=== PATIENT | male | born 1940 | race Caucasian/White ===

== ENCOUNTER 2017-03-01 15:23 | Outpatient (RCR) | payer MEDICARE, SELFPAY ==
--- NOTE | 2017-03-01 16:31 | HP.PTEVAL_ITS ---
Patient's Visit Information SEAN GILMORE is a 76 year old M referred to Physical Therapy by Out of Town Doctor CARLOS A GONZALEZ with a diagnosis of PARKINSON DISEASE AND GAIT INSTABLITY. Date of Evaluation: 03/01/17 Physical Therapist: Hubert Burger PT, - Visit Plan Frequency: 2x /Week Duration: 4 Weeks Plan: PROVIDED HEP,RECOMMENDED CANE NEED FOR COMMUNITY DISTANCE AND UNEVEN SURFACES. PATIENT DOESNT WANT FWW - Subjective Subjective: This 76 y/o male presents physical therapy with parkinsons disease and gait instablity. Patient been diagnosed with parkinsons 2014. Patient symtoms affect quality of gait ,ADL'S and self hygiine -dressing buttoning shirts. Patient has no falls. Doesent use device with walking. Denies parathesai /tingling. Pain has tremors left UE. Patient had barrium swolllwing exam at [facility] today. Patient eats soft food.Patient condition affects housework tasks.Patient seen specilaist in [facility]. SOCAIL: . VOCATION: retired - Pain Right Shoulder Pain Intensity (Out of 10): 4 Pain Intensity Range: 10 - Objective POSTURE: rounded shoulders head foward,hips/knees flexed. PALAPTION: unremarkable. NEURO: tremors left UE,denies parathesia/tingling,reflexes 2/3 L3-4,L4-5 1/3. GAIT: mild foward posture narow [place], decrease step length , decrease trunk rotation. FLEXABLITY: hams mod tight,trunk roation mod tight. MMT: quads/hams 4-/5,hip flexion 3+/5,hip abd 3+/5,ankle 4/5. DYNAMIC BALANCE : good - - Balance Scores Functional Gait Assessment Score: 13 % Disability: 56.6700 CATSIB Score (Max score 120 seconds): 105 - Goals Goal 1:: Independant with HEP Goal Time Frame: 2-4 Weeks Goal 2:: Improve flexablity LE and trunk WFL to improve gait. Goal Time Frame: 2-4 Weeks Goal 3:: Patient increase strength to 4/5 to improve gait and function Goal Time Frame: 2-4 Weeks Goal 4:: Patient ambulate with cane as needed on uneven surfaces Goal Time Frame: 2-4 Weeks - Rehabilitation Potential Physical Therapy Diagnosis: This patient has diagnosis with parkinsons since 2015 with impaired gait and balnce. and needs some assist with ADL'S Rehabilitation Potential: Good - Anticipated Interventions Patient/Client Instruction: Educate patient on: Condition, Plan of Care For the Purpose of:: To increase ROM, To improve muscle performance and motor function, To improve ability to perform ADL's, To increase tolerance to activity /condition/position, To improve performance and independence with ADL's, To improve gait and locomotor functions, To increase flexibility/ROM, To improve endurance, To improve tolerance to ADL's Therapeutic Exercise to Include: Strength training, Balance training, Postural training, Flexibilty training, Gait and locomotor training For the Purpose of:: To decrease pain, To improve muscle performance and motor function, To improve ability to perform ADL's, To increase tolerance to activity /condition/position, To improve performance and independence with ADL's, To decrease level of supervision to perform tasks, To improve ability of physical actions for home/community/work/leisure, To improve gait and locomotor functions , To increase flexibility/ROM, To improve endurance, To improve balance, To improve safety with gait, To improve ability to perform tasks related to life management Functional Training to Include: Gait training For the Purpose of:: To improve muscle performance and motor function, To increase tolerance to activity/condition/position, To improve performance and independence with ADL's, To improve ability of physical actions for home/ community/work/leisure Thank you for the opportunity to evaluate your patient. For Medicare and Medicare HMO plans, please review the plan of care and approve it. It will need to be FAXED BACK to us at [phone] for Medicare purposes. Please let me know if there are questions or concerns regarding this plan of care. Physician Signature: Date:
--- NOTE | 2017-04-24 13:59 | HP.PTDCNRP_ITS ---
HP - Discharge Summary (1) - Patient Information SEAN GILMORE was seen in my office for initial evaluation on 03/01/17. The following Plan of Care was established for this patient: Initial Frequency: 2x /Week Initial Duration: 4 Weeks - Anticipated Interventions Patient/Client Instruction: Educate patient on: Condition, Plan of Care For the Purpose of:: To increase ROM, To improve muscle performance and motor function, To improve ability to perform ADL's, To increase tolerance to activity /condition/position, To improve performance and independence with ADL's, To improve gait and locomotor functions, To increase flexibility/ROM, To improve endurance, To improve tolerance to ADL's Therapeutic Exercise to Include: Strength training, Balance training, Postural training, Flexibilty training, Gait and locomotor training For the Purpose of:: To decrease pain, To improve muscle performance and motor function, To improve ability to perform ADL's, To increase tolerance to activity /condition/position, To improve performance and independence with ADL's, To decrease level of supervision to perform tasks, To improve ability of physical actions for home/community/work/leisure, To improve gait and locomotor functions , To increase flexibility/ROM, To improve endurance, To improve balance, To improve safety with gait, To improve ability to perform tasks related to life management Functional Training to Include: Gait training For the Purpose of:: To improve muscle performance and motor function, To increase tolerance to activity/condition/position, To improve performance and independence with ADL's, To improve ability of physical actions for home/ community/work/leisure This patient was last seen in our office . Pertinent comments regarding their Physical therapy will appear below: Patient seen for intial Eval only thus is d/c. At this point I will be discontinuing this patient from physical therapy. I would be happy to see this patient again in the future if found appropriate by the physician. Thank you! Hubert Burger, PT,
== END 2017-03-01 19:00 | disposition home or self-care (01) ==
LOC: PT 15:23
DX: G20 Parkinson's disease (principal); R26.9 Unspecified abnormalities of gait and mobility; R13.10 Dysphagia, unspecified
CPT/HCPCS: 97110; 97162

== ENCOUNTER → 2017-09-18 12:44 | Outpatient (CLI) | payer MEDICARE, SELFPAY ==
--- NOTE | 2017-09-18 13:00 | SP.MBSS_ITS ---
PRIMARY / SECONDARY DIAGNOSIS: dysphagia (R13.10) REFERRING PHYSICIAN: Dr. Humhprey Parisi MD CURRENT DIET: regular textures, thin liquids DENTITION: WFL MENTAL STATUS: WNL RESPIRATORY STATUS: O2 via room air PREVIOUS MODIFIED BARIUM SWALLOW STUDY: yes 03/01/2017 MBS revealed moderate oropharyngeal dysphagia with grade III SILENT aspiration of thin liquids during sequential intake, with frequent penetration above and to the vocal folds without sufficient laryngeal vestibule pressure generated to facilitate ejection likely contributing to eventual aspiration REASON FOR REFERRAL: Patient is a 77 year old male referred for a modified barium swallow (MBS) study to objectively assess the Patients oropharyngeal swallow function under fluoroscopy secondary to the diagnosis of Parkinsons disease resulting in oropharyngeal dysphagia with grade III SILENT aspiration identified during prior assessment under fluoroscopy. 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 Patient reports decreased incidence of nasal emission during intake, though with postures that are concerning based on objective testing findings (reports he will elevate head slightly, counterproductive in regards to laryngeal vestibule production due to demonstrated posterior bolus loss with delayed pharyngeal swallow onset). Both deny any changes in gait / ambulation, with clear shuffled gait and anterior lean, no assisted device. Both report recent medication adjustments (Mirapex / Pramipexole 2.25mg). MEDICAL HISTORY: Parkinsons disease, memory loss, arthritis, prior history of leukemia STUDY FINDINGS: Patient participated in a Modified Barium Swallow (MBS) study on 09/18/2017. Dr. Garcia was the radiologist present for this evaluation. This study was recorded in the lateral view and images were sent to PACs for storage. The following consistencies were presented to this patient for analysis of oropharyngeal swallow function: thin liquids, nectar thickened liquids, pudding , and a regular textured, [place] cookie. Results of the MBS are as follows: PENETRATION / ASPIRATION SCALE (CARLOS): 1 = does not enter airway 2 = enters airway/above vocal folds/ejected 3 = enters airway/above vocal folds/not ejected 4 = enters airway/contacts vocal folds/ejected 5 = enters airway/contacts vocal folds/not ejected 6 = enters airway/below vocal folds/ejected 7 = enters airway/below vocal folds/not ejected despite effort 8 = enters airway/below vocal folds/no effort VIDEOFLOROSCOPIC SCALE SCORE (CARLOS): Grade I = aspiration of material that has penetrated into the laryngeal vestibule, intact cough reflex Grade II = aspiration < 10 % of the bolus, intact cough reflex Grade III = aspiration of < 10 % of the bolus, reduced cough reflex or aspiration of > 10 % of the bolus, intact cough reflex Grade IV = aspiration of > 10 % of the bolus, reduced cough reflex PENETRATION / ASPIRATION SCALE (SCORE) WITH VIDEOFLOROSCOPIC SCALE SCORE: Thin liquids via cup (single sip): 8 - Grade III Thin liquids via cup (3 second prep): 5 Thin liquids via cup (chin tuck): 3 [place] thickened liquids via cup (single sip): 2 [place] thickened liquids via cup (single sip): 2 [place] thickened liquids via cup (single sip): 2 [place] thickened liquids via cup (single sip): 2 Pudding via spoon: 1 Regular textured cookie: *NA [place] thickened liquids via cup (single sip chaser): 4 [place] thickened liquids via cup (single sip): 2 [place] thickened liquids via cup (single sip): 2 [place] thickened liquids via cup (single sip): 2 * denotes inability to elicit swallow, required nectar thickened liquid chaser IMPRESSION: DIAGNOSIS: moderate oropharyngeal dysphagia (R13.12) ORAL PHASE CHARACTERIZED BY: LABIAL SEAL: no labial escape TONGUE CONTROL DURING BOLUS MANIPULATION: posterior escape of less than half of bolus BOLUS PREPARATION / MASTICATION: brief, disorganized chewing/mashing with solid pieces of bolus unchewed BOLUS TRANSPORT / LINGUAL MOTION: slowed tongue motion ORAL RESIDUE: residue collection on oral structures PHARYNGEAL PHASE CHARACTERIZED BY: INITIATION OF PHARYNGEAL SWALLOW: bolus head in pyriforms at first hyoid excursion SOFT PALATE ELEVATION: trace column of contrast/air between soft palate and pharyngeal wall LARYNGEAL ELEVATION: partial superior movement of thyroid cartilage/partial approximation of arytenoids cartilage to epiglottic petiole ANTERIOR HYOID EXCURSION: partial anterior movement EPIGLOTTIC MOVEMENT: complete epiglottic inversion LARYNGEAL VESTIBULE CLOSURE AT HEIGHT OF SWALLOW: incomplete laryngeal vestibule closure with narrow column of air/contrast in laryngeal vestibule PHARYNGEAL STRIPPING WAVE: pharyngeal stripping wave present / diminished PHARYNGOESOPHAGEAL SEGMENT OPENING: partial distension and partial duration; partial obstruction of flow TONGUE BASE RETRACTION: trace column of contrast between tongue base and posterior pharyngeal wall PHARYNGEAL RESIDUE: majority of contrast within or on pharyngeal structures during regular texture trials; collection of residue within or on pharyngeal structures during more viscous texture trials ESOPHAGEAL PHASE CHARACTERIZED BY: ESOPHAGEAL BOLUS CLEARANCE IN THE UPRIGHT POSITION: complete clearance; esophageal coating EFFECTS OF TREATMENT STRATEGIES ATTEMPTED: Chin tuck posture = ineffective 3 second prep = ineffective Cough and reswallow = ineffective Liquid chaser = moderately effective Reduced bolus size = effective DIET TEXTURE RECOMMENDATIONS: Will recommend a mechanical soft textured, nectar thickened liquid diet. COMPENSATORY STRATEGIES RECOMMENDED: Reduced bolus volume, reduced rate of intake, seated upright at 90 degrees during PO intake, remain upright for 30-60 minutes post meal (GERD precaution), medications with purees. INTERPRETATION OF RESULTS: Patient presents with moderate oropharyngeal dysphagia (R13.12) secondary to the diagnosis of Parkinsons disease, with results very similar in nature to prior study. Oral phase primarily marked by mastication inefficiency with noted slow, effortful mastication with Patient unable to completely break down bolus prior to deglutition with resulting piecemeal deglutition and copious oral residue post deglutition; and suboptimal lingual control resulting in premature bolus loss contributing to pre-prandial penetration and aspiration. Pharyngeal phase marked by delayed pharyngeal swallow onset timing (moderate) resulting in suboptimal bolus location upon swallow onset contributing to pre-prandial and prandial penetration and aspiration; reduced closure of the airway during deglutition (moderate) attributed to reduced laryngeal elevation resulting in inconsistent epiglottic inversion and poor laryngeal vestibule closure / pressure contributing to prandial penetration; poor pharyngeal motility / pharyngeal dysmotility (moderate) attributed to reduced tongue based retraction and reduced posterior pharyngeal stripping wave action resulting in pharyngeal retention within the valleculae and pyriforms; and velopharyngeal insufficiency / reduced soft palate elevation without observed nasoregurgitation. Noted inconsistent / insufficient laryngeal vestibule pressure generated to expel penetrated material. Insufficient cough response to expel penetrated material / laryngotracheal aspiration with overall weak cough response noted upon cued cough. Large portion of poorly masticated shortbread cookie noted to collect within the valleculae and divert nectar thickened liquids on chaser trial resulting in transient prandial deep penetration; remainder of transient penetration during nectar thickened liquid trials very minimal and brief. Patient noted to SILENTLY aspirate with thin liquids, with clinical assessment at bedside relying on identification of classic overt signs and symptoms of aspiration unreliable. Would consider this Patient to be at higher risk for both malnutrition (due to the recommended diet texture restrictions) and pulmonary complications associated with aspiration (due to the occasional limitations in mobility, presence of SILENT aspiration, and diminished cognition secondary to the diagnosis of Parkinsons). RECOMMENDATIONS: Would strongly discourage advancement past nectar thickened liquids without completion of a repeat modified barium swallow study due to the extent of aspirate identified that was SILENT in nature. Would consider implementation of the [place] Free Water Protocol (FFWP) following Patient and family education IF the Patient has the adequate level of supervision, as advancement to thin liquids prior to discharge is unlikely, ONLY if the Patient has the adequate level of supervision at home. Patient requires intensive skilled speech- language intervention targeting continued diet texture management; training and implementation of recommended compensatory strategies; training, implementation , and Patient education regarding implementation of the FFWP; and Patient / caregiver training targeting meal preparation / thickened liquid preparation ADDITIONAL COMMENTS/RECOMMENDATIONS: Results and recommendations were discussed with the Patient immediately following MBS completion, with the Patient verbalizing understanding and agreement with all recommendations and education provided. IMAGE COUNT: 2902 G-CODES: SWALLOWING G8996 Current Status: CK SWALLOWING G8997 Goal Status: CI SWALLOWING G8998 Discharge Status: CK
--- NOTE | 2017-09-18 13:35 | RAD_ITS ---
STUDY: SWALLOWING STUDY REASON FOR EXAM: Male, 77 years old. Dysphagia. TECHNIQUE: The examination was performed with Speech Pathology in attendance. Under fluoroscopic observation, the patient ingested thin barium, thick barium, barium pudding, and barium coated cracker. FLUOROSCOPY TIME: 3:05 minutes/seconds. 2902 spot images were obtained. RADIOLOGIST INVOLVEMENT: Radiologist was present and providing direct supervision. COMPARISON: Comparison is made with prior study dated March 01, 2017. FINDINGS: The following was observed during swallowing of the various mixtures of barium: Thin Barium: Penetration and silent aspiration with ingestion of thin liquids. Thick Barium: There was no evidence of aspiration or laryngeal penetration. Barium Pudding: There was no evidence of aspiration or laryngeal penetration. Barium Coated Cracker: There was no evidence of aspiration or laryngeal penetration. RAD/Swallowing Function w/Video IMPRESSION: Penetration and silent aspiration with ingestion of thin liquids. The swallow study findings were discussed with the patient by the speech pathologist at the conclusion of the examination. Please see speech pathology report for more information and recommendations. Electronically Signed: Orlin Garcia MD at 14:45 EDT Tel [phone], Service support ,
== END ==
DX: R13.12 Dysphagia, oropharyngeal phase (principal); G20 Parkinson's disease
CPT/HCPCS: 74230; 92611; G8996; G8997; G8998

== ENCOUNTER → 2017-10-20 08:55 | Outpatient (CLI) | payer MEDICARE, SELFPAY ==
--- NOTE | 2017-10-23 15:50 | EEG ---
- Electroencephalogram Date of service 10/20/2017 History EEG is being done in this 77 yr M to rule out seizures EEG Description: This is an 18 channel EEG with 10-20 lead placement system. Bipolar montages, Referential and Circumferential montages were reviewed. Photic stimulation and Hyperventilation were performed. The posterior dominant background rhythm is 8 HZ synchronous, symmetric, reacting to eye opening and closing. Photo stimulation elicited normal driving response but no abnormal photoparoxysmal response, Hyperventilation did not elicit any abnormal photoparoxysmal response. Sleep was identified. There was no epileptiform discharges or electrographic seizures noted during this recording. EEG Interpretation This is a normal awake and asleep EEG. There is no epileptiform discharges or electrographic seizures noted during the record.
== END ==
DX: R68.89 Other general symptoms and signs (principal)

== ENCOUNTER 2017-11-23 11:00 | Outpatient (RCR) | payer MEDICARE, SELFPAY ==
--- NOTE | 2017-09-07 18:49 | HP.SP.AD_ITS ---
History - History Date of Eval: 09/07/17 Medical Diagnosis (from RX): Parkinson?s disease (G20.0); dysphagia (R13.12) Previous speech therapy: No Other Relevant Medical History/Diagnoses/Surgery: Parkinson?s disease, memory loss, arthritis, prior history of leukemia Hx Smoking: No - Pain Is pain an issue with your current prescribed condition?: No Objective Oral Motor - Labial Impairment: Mild - Lingual Impairment: Mild - Jaw Impairment: WNL - Oral Motor Comments Comments: Mild reduction in lingual volume with mild lingual festinations upon protrusion. - Respiratory Status Respiratory Status: Room Air Subjective Dysphagia - Symptoms Reported Symptoms/Problems with: Drooling, Difficulty Swallowing Liquids, Difficulty Swallowing Pills, Hx of Aspiration, Hx of Pneumonia - Current Diet Solids Current Diet: Regular - Current Diet Liquids Current Liquids: Thin Other: Recommended mechanical soft, nectar thickened liquids [place] free water Protocol: No Objective Dysphagia - Administered by Administered by: Self - Thin Liquids Administred via: Cup Laryngeal Elevation: WFL Oral Holding: No Comments: Consistent audible swallow, audible moist smacking sound suspected to be attributed to suboptimal velopharyngeal elevation. Occasional lingual pumping upon digital palpation. - [place] Thickened Liquids Symptoms: Throat Clearing, Immediate Comments: Immediate throat clearing on 1 of several nectar thickened liquid trials. Consistent audible swallow, audible moist smacking sound suspected to be attributed to suboptimal velopharyngeal elevation. Occasional lingual pumping upon digital palpation. - Pureed Laryngeal Elevation: WFL - Regular Laryngeal Elevation: WFL Comments: Mild increase in mastication duration, though lacking clinical significance. - Results Swallowing Within Normal Limits: No Swallowing Diagnosis: Oropharyngeal Phase Dysphagia Additional: Known history of SILENT aspiration Severity: Moderate Modified Barium Results Hx MBS Report Entered: Yes Dysphagia Assessment - Recommendations Modified Barium Swallow/Cookie Swallow Recommended: Yes Swallowing Treatment: Yes - Diet Texture Recommendations Solids Other: Mechanical Soft Liquids: [place] Thick Other: Will consider [place] Free Water Protocol following MBS completion. - Safety Other: 3 second prep, reduced bolus volume, reduced rate of intake, avoid straws , seated upright at 90 degrees during PO intake, remain upright for 30-60 minutes post meal (GERD precaution), medications with applesauce, Subjective Dysarthria/Motor - Subjective Subjective: Patient is a 77 year old male referred to [facility] due to continued concerns with PO intake safety secondary to the diagnosis of Parkinson?s disease. MBS completed late last year (03/01/2017) revealed moderate oropharyngeal dysphagia with grade III SILENT aspiration of thin liquids during sequential intake, with frequent penetration above and to the vocal folds without sufficient laryngeal vestibule pressure generated to facilitate ejection likely contributing to eventual aspiration. Patient was recommended a mechanical soft, nectar thickened liquids diet with continued intervention at the outpatient level, though per report was unable to schedule sessions, with the Patient and Patients reporting non-compliance due to distaste / dissatisfaction during thickened liquid intake. 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 Patient reports decreased incidence of nasal emission during intake, though with postures that are concerning based on objective testing findings (reports he will elevate head slightly, counterproductive in regards to laryngeal vestibule production due to demonstrated posterior bolus loss with delayed pharyngeal swallow onset). Both deny any changes in gait / ambulation, with clear shuffled gait and anterior lean, no assisted device. Both report recent medication adjustments (Mirapex / Pramipexole 2.25mg). Plan - Plan Plan: Will recommend a repeat modified barium swallow study due in part to the rather long duration in regards to prior objective testing completion and initiation of intervention, along with recent reports of symptoms concerning for aspiration and particularly silent aspiration (strong association with diurnal sialorrhea, further reports somewhat progressed hypokinetic dysarthria / hypophonia), with clinical assessment based on more subjective impressions considered insufficient when considering prior silent aspiration identified through objective assessment. Orders included detail assessment and intervention targeting dysphagia, though both the Patient and the Patient?s express desire for skilled speech-language intervention targeting hypokinetic dysarthria, with clear expressive impairments observed; will progress with expressive language intervention after orders have been obtained, though will hold intervention efforts until intervention targeting dysphagia have been established, as severity of deficits necessitates full therapeutic focus. - Recommendations MBS: Yes Treatment Warranted: Yes - Frequency Frequency: 1x/Week Duration: 6 Months - Prognosis Prognosis: Good - Goals that are Established: Determination:: Goals will be added/modified as deemed necessary and appropriate. Therapy will be discontinued when results of re-evaluation indicate therapy is no longer needed or lack of progress has been documented. - Goal #1-5 Goal #1: Pt will tolerate the least restrictive means of nutrition to facilitate adequate hydration/nutrition with optimum safety and efficiency of swallowing function during P.O. intake without overt signs and symptoms of aspiration. Goal #2: Pt will demonstrate and utilize recommended compensatory swallowing techniques to facilitate improved airway protection and decreased risk for aspiration during PO intake, across 2 out of 3 sessions. Goal #3: Pt will participate in a Modified Barium Swallow (MBS) study to objectively assess the Pt.?s oropharyngeal swallowing function, to determine the least restrictive means of nutrition, and to identify appropriate intervention approaches / strategies to implement during treatment sessions at the supervised level. Education - Patient Instruction Patient Education: Diagnosis, Treatment Plan, Goals, Safety Precautions, Diet Level Person Taught: Patient, Family Teaching Method: Discussion, Demonstration, Audiovisual, Protocol, Teach back Response to teaching: Return demonstration, Verbalize understanding, Reinforcement needed
--- NOTE | 2017-09-29 08:45 | HP.SP.AD_ITS ---
History - History Date of Eval: 09/28/17 Medical Diagnosis (from RX): Parkinson?s disease (G20.0) Previous speech therapy: Yes Results: Recent intervention targeting oropharyngeal dysphagia with evolving effectiveness. No speech-language intervention targeting dysarthria. Other Relevant Medical History/Diagnoses/Surgery: Parkinson?s disease, memory loss, arthritis, prior history of leukemia Medications related to this diagnosis: Mirapex / Pramipexole 2.25mg Hx Smoking: No - Pain Is pain an issue with your current prescribed condition?: No Objective Oral Motor - Labial Impairment: Mild - Lingual Impairment: Mild - Jaw Impairment: WNL - Oral Motor Comments Comments: Mild reduction in lingual volume with mild lingual festinations upon protrusion. - Respiratory Status Respiratory Status: Room Air Subjective Dysphagia - Symptoms Reported Symptoms/Problems with: Drooling, Difficulty Swallowing Liquids, Difficulty Swallowing Pills, Hx of Aspiration, Hx of Pneumonia - Current Diet Solids Current Diet: Regular - Current Diet Liquids Current Liquids: Thin Other: Recommended mechanical soft, nectar thickened liquids Palomares free water Protocol: No Objective Dysphagia - Administered by Administered by: Self - Thin Liquids Administred via: Cup Laryngeal Elevation: WFL Oral Holding: No Comments: Consistent audible swallow, audible moist smacking sound suspected to be attributed to suboptimal velopharyngeal elevation. Occasional lingual pumping upon digital palpation. - [employer] Thickened Liquids Symptoms: Throat Clearing, Immediate Comments: Immediate throat clearing on 1 of several nectar thickened liquid trials. Consistent audible swallow, audible moist smacking sound suspected to be attributed to suboptimal velopharyngeal elevation. Occasional lingual pumping upon digital palpation. - Pureed Laryngeal Elevation: WFL - Regular Laryngeal Elevation: WFL Comments: Mild increase in mastication duration, though lacking clinical significance. - Results Swallowing Within Normal Limits: No Swallowing Diagnosis: Oropharyngeal Phase Dysphagia Additional: Known history of SILENT aspiration Severity: Moderate Modified Barium Results Hx MBS Report Entered: Yes Dysphagia Assessment - Recommendations Modified Barium Swallow/Cookie Swallow Recommended: Yes Swallowing Treatment: Yes - Diet Texture Recommendations Solids Other: Mechanical Soft Liquids: [employer] Thick Other: Will consider [place] Free Water Protocol following MBS completion. - Safety Other: 3 second prep, reduced bolus volume, reduced rate of intake, avoid straws , seated upright at 90 degrees during PO intake, remain upright for 30-60 minutes post meal (GERD precaution), medications with applesauce, Subjective Dysarthria/Motor - Subjective Subjective: Patient is a 77 year old male referred to [facility] due to continued concerns with PO intake safety secondary to the diagnosis of Parkinson?s disease. MBS completed late last year (03/01/2017) revealed moderate oropharyngeal dysphagia with grade III SILENT aspiration of thin liquids during sequential intake, with frequent penetration above and to the vocal folds without sufficient laryngeal vestibule pressure generated to facilitate ejection likely contributing to eventual aspiration. Patient was recommended a mechanical soft, nectar thickened liquids diet with continued intervention at the outpatient level, though per report was unable to schedule sessions, with the Patient and Patients reporting non-compliance due to distaste / dissatisfaction during thickened liquid intake. 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 Patient reports decreased incidence of nasal emission during intake, though with postures that are concerning based on objective testing findings (reports he will elevate head slightly, counterproductive in regards to laryngeal vestibule production due to demonstrated posterior bolus loss with delayed pharyngeal swallow onset). Both deny any changes in gait / ambulation, with clear shuffled gait and anterior lean, no assisted device. Both report recent medication adjustments (Mirapex / Pramipexole 2.25mg). Voice Handicap Index (VHI) - I VHI Administered: Yes VHI: Patient completed the Voice Handicap Index, which is a 30 item, self administered questionnaire that asks an individual to describe their voice and the effects of their voice on their life. Three subscales cover the areas of functional, emotional, and physical aspects of the voice disorders. Points from the questions can be combined to assign a total score, or they can be combined by subscale. Results for the VHI are as follows: Date: 09/29/17 - Comments Voice Handicap Index ? 10 Severity Scorin (indicating a moderate alteration in vocal abilities). -: . Objective Voice - Objective data Objective Data: Objective data: Sound pressure level (SPL acoustic correlation of vocal loudness) was measured with a sound level meter at a distance of 40 cm from the patient's mouth. Average conversational loudness is 70-80 dB and sustained phonation duration is 15 to 20 seconds for a typical adult. Sustained Phonation Intensity (dB SPL): 68.81 Sustained Phonatin duration (seconds): 8.28 Is the individual stimulable to increase vocal intensity: Yes Vocal Intensity at Paragraph Level (dB SPL): 64.0 Vocal Intensity at Conversational Level (dB SPL): 55.42 - Acoustic Analysis Acoustic Analysis: These results represent reading and conversational decibel levels that may significantly reduce speech intelligibility and communicative effectiveness. 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 Patient?s expressive communication marked by hypophonia with decreased breath support with compromised communicative effectiveness particularly with longer production attempts, further complicated by generalized articulatory imprecisions and intermittent neurogenic dysfluencies (initial syllable prolongations and repetitions). Patient requires continued skilled speech-language intervention targeting hypokinetic dysarthria via training and implementation of recommended expressive communication strategies (increased vocal intensity, reduced rate of production, over- articulation) with considerations for modified LSVT implementation as able ( only able to attend therapy 1x week, precluding full implementation) in addition to continued intervention targeting oropharyngeal dysphagia. - Recommendations MBS: Yes Treatment Warranted: Yes - Frequency Visits in this POC: 4 - Prognosis Prognosis: Excellent - Goals that are Established: Determination:: Goals will be added/modified as deemed necessary and appropriate. Therapy will be discontinued when results of re-evaluation indicate therapy is no longer needed or lack of progress has been documented. - Goal #1-5 Goal #1: Patient will utilize compensatory expressive communication strategies ( increased vocal intensity, reduced rate of production, over-articulation) to facilitate improved vocal intensity and speech intelligibility in 2 out of 3 consecutive sessions. Goal #2: Patient will increased his average vocal intensity to 70-75 dBSPL during word, sentence, phrase, and conversational speech production to facilitate improved vocal intensity and speech intelligibility in 2 out of 3 consecutive sessions. Goal #3: Pt will participate in a Modified Barium Swallow (MBS) study to objectively assess the Pt.?s oropharyngeal swallowing function, to determine the least restrictive means of nutrition, and to identify appropriate intervention approaches / strategies to implement during treatment sessions at the supervised level. Education - Patient Instruction Patient Education: Diagnosis, Treatment Plan Person Taught: Patient Teaching Method: Discussion Response to teaching: Return demonstration, Verbalize understanding
== END 2017-11-23 11:30 | disposition home or self-care (01) ==
LOC: SP 11:00
DX: G20 Parkinson's disease (principal); R13.12 Dysphagia, oropharyngeal phase; T17.908D Unspecified foreign body in respiratory tract, part unspecified causing other injury, subsequent encounter; R41.3 Other amnesia; R47.1 Dysarthria and anarthria
CPT/HCPCS: 92507; 92523; 92526; 92610

== ENCOUNTER → 2019-10-16 | Outpatient (CLI) | payer MEDICARE, SELFPAY ==
[2019-10-16 11:10] VITALS: BMI 26.6
[2019-10-16 13:13] LABS: Absolute Lymphocyte Count 0.73 X10^3/uL (0.83-4.51); Basophil# 0.04 X10^3/uL; Basophil% 0.7 % (0-1); Eosinophil# 0.31 X10^3/uL; Eosinophils% 5.6 % (0-5); Hematocrit 39.6 % (40-54); Lymphocyte # 0.73 X10^3/ul (4.0); Lymphocyte % 13.2 % (19-41); Mean Corp Hgb Conc 32.8 g/dL (32-36); Mean Corpuscular Hgb 31.3 pg (27.0-32.0); Mean Corpuscular Volume 95.2 fL (80-94); Mean Platelet Vol. 11.9 fl (6.2-12.0); Monocyte# 0.46 X10^3/uL; Monocyte% 8.3 % (0-10); NRBC Flagged by Analyzer 0 % (0-5); Neutrophil # 3.98 X10^3/uL (2.7-7.7); Platelet Count 132 K/mm3 (150-450); RBC Distribution Width CV 12.2 % (11.6-14.6); RBC Distribution Width SD 42.6 fl (35.1-43.9); Red Blood Count 4.16 M/mm3 (4.6-6.2); White Blood Count 5.5 K/mm3 (4.4-11.0)
[2019-10-16 13:29] LABS: Partial Thromboplast Time 27.6 Seconds (24.1-36.2); Prothrombin Time (Protime)PT. 12.7 SECONDS (11.7-14.9)
[2019-10-16 14:04] LABS: Anion Gap 2 (5-15); BUN 19 mg/dL (7-18); BUN/Creat Ratio 25.2 RATIO (10-20); Calcium,Total 8.8 mg/dL (8.5-10.1); Chloride 105 mmol/L (98-107); Creatinine, Serum 0.76 mg/dL (0.70-1.30); EST Glomerular Filtration Rate 106 mL/min (>60); Est Glom Filt Rate - Afr Amer 128 mL/min (>60); Glucose 88 mg/dL (74-106); Sodium Level 140 mmol/L (136-145)
== END | disposition home or self-care (01) ==
PROVIDERS: Referring Provider Specialist; Visit Provider Specialist
DX: I10 Essential (primary) hypertension (principal); R06.00 Dyspnea, unspecified; R07.9 Chest pain, unspecified
CPT/HCPCS: 36415; 80048; 85025; 85610; 85730

== ENCOUNTER → 2019-11-01 10:38 | Outpatient (CLI) | payer MEDICARE, SELFPAY ==
[2019-10-16 11:10] VITALS: BMI 26.6
--- NOTE | 2019-11-01 10:39 | ECHOCS_ITS ---
Reason For Study: CP, Palpitations Procedure This was a 2D Doppler, Color Flow transthoracic echocardiogram. The study was technically difficult. Contrast injection was performed. Exam performed in department. Left Ventricle Normal LV size. The estimated ejection fraction is 55 %. Normal diastology for age. No regional wall motion abnormalities noted. Right Ventricle Normal RV size. Normal systolic function. Atria Normal left atrium. Normal right atrium. No doppler evidence for ASD. Mitral Valve There is no mitral valve stenosis. No mitral valve insufficiency. Tricuspid Valve There is no tricuspid stenosis. No tricuspid valve insufficiency. Unable to estimate RV systolic pressure due to insufficient tricuspid regurgitant envelope. Aortic Valve Trisinus/trileaflet aortic valve. Aortic sclerosis, no stenosis. There is no aortic stenosis. No aortic valve insufficiency. Pulmonic Valve There is no pulmonic valvular stenosis. No pulmonic valve insufficiency. Great Vessels Normal aortic root. Pericardium/Pleural No pericardial effusion. Medication 22 gauge I.V. with prn adaptor inserted into left arm. Diluted definity 2ml given slow IV push to enhance endocardial definition. MMode/2D Measurements & Calculations LVIDd: 4.3 cm IVSd: 1.5 cm Ao root diam: 2.9 cm LVIDs: 3.0 cm LVPWd: 1.1 cm LA dimension: 3.3 cm RVDd: 3.3 cm FS: 30.8 % LAV(MOD-bp): 38.2 ml LA A4 area: 16.2 cm2 RA A4 area: 10.6 cm2 LAV(MOD-bp) Indexed: 20.9 ml/m2 LAV(MOD-sp2): 36.0 ml LAV(MOD-sp4): 42.3 ml Time Measurements MV dec time: 0.31 sec Doppler Measurements & Calculations MV E max gerardo: 58.1 cm/sec Lat Peak E' Gerardo: 4.8 cm/sec Med Peak E' Gerardo: 5.9 cm/sec MV A max gerardo: 94.7 cm/sec E/E' lat: 12.0 E/E' med: 9.9 MV E/A: 0.61 MV V2 max: 102.7 cm/sec MV P1/2t max gerardo: 66.9 cm/sec Ao V2 max: 142.4 cm/sec MV max P.2 mmHg MV P1/2t: 76.2 msec Ao max P.1 mmHg MV V2 mean: 54.2 cm/sec MV dec slope: 256.9 cm/sec2 MV mean P.4 mmHg MV V2 VTI: 20.9 cm MVA(P1/2t): 2.9 cm2 LV V1 max: 72.5 cm/sec PA V2 max: 66.4 cm/sec LV V1 max P.1 mmHg Interpretation Summary The estimated ejection fraction is 55 %. Normal diastology for age. The study was technically difficult. Contrast injection was performed. Ordering Physician: Elder Jean Referring Physician: Humphrey Parisi Performed By: Antoine Leung RCS
== END ==
PROVIDERS: Referring Provider Specialist; Visit Provider Specialist
DX: R06.00 Dyspnea, unspecified (principal); R07.9 Chest pain, unspecified; R00.2 Palpitations
CPT/HCPCS: 93306; Q9957; A4216; C8929

== ENCOUNTER 2019-11-15 08:59 | Day surgery (SDC) | payer MEDICARE, SELFPAY ==
[2019-10-16 11:10] VITALS: BMI 26.6
[2019-11-14 10:31] VITALS: BMI 26.6
[2019-11-15] VITALS (19 sets, daily range): BP systolic 121–148; BP diastolic 58–105; PULSE 71–105; RESP 16–18; TEMP 36.4–36.8; O2SAT 93–97; BMI 27.3; BMI 27.2
--- NOTE | 2019-11-15 09:16 | EKG12_ITS ---
Test Reason : [facility] Blood Pressure : / mmHG Vent. Rate : 091 BPM Atrial Rate : 091 BPM P-R Int : 146 ms QRS Dur : 082 ms QT Int : 376 ms P-R-T Axes : 030 009 028 degrees QTc Int : 462 ms Sinus rhythm with frequent Premature ventricular complexes Low voltage QRS (Limb Leads) Confirmed by ELLEN BOBBY, DALY ([id number]), editor house organ VANDANA BARRETT ([id number] on 11/21/2019 11:28:29 AM Referred By: Elder Jean Confirmed By:DALY HUGHES MD
--- NOTE | 2019-11-15 11:45 | EKG12_ITS ---
Test Reason : POST CATH Blood Pressure : / mmHG Vent. Rate : 088 BPM Atrial Rate : 070 BPM P-R Int : 000 ms QRS Dur : 074 ms QT Int : 348 ms P-R-T Axes : 000 001 008 degrees QTc Int : 421 ms Atrial fibrillation Nonspecific ST and T wave abnormality Abnormal ECG Confirmed by ELLEN BOBBY, DALY ([id number]), order editor STEPHEN LORA ([id number]) on 11/20/2019 1:08:03 PM Referred By: Elder Jean Confirmed By:DALY HUGHES MD
--- NOTE | 2019-11-15 12:48 | PCM.DC.CCA ---
Discharge Diet: Low fat/ Low Cholesterol Discharge Activity: Return to Normal Activity May shower in (days): 1 - No tub baths for 5 days May resume sexual activity in: 1-2 weeks Lifting Restrictions: Do not lift anything greater than 10 pounds for 3 days Call your doctor if your incision/area has: Continuous Slow Oozing, Sudden Increased Bleeding, Increased Pain/ Swelling, Increased Redness, Foul Smelling Discharge, Swelling at the incision site Call your doctor if you observe: Fever of 101 or Higher, Shortness of breath, Chest pain Remove Dressing in (days):: 1 Cleanse incision/area with: Soap & Water Allergies/Adverse Reactions: Allergies levofloxacin [From Levaquin] Allergy (Intermediate, Verified 10/16/19 11:13) Rash Penicillins Allergy (Intermediate, Verified 10/16/19 11:13) rash Medications to take at Discharge fexofenadine 180 mg tablet 180 mg PO DAILY 10/14/19 multivitamin 1 tab PO DAILY 10/14/19 amantadine HCl 100 mg capsule 200 mg PO DAILY cap 10/16/19 citalopram 20 mg tablet 20 mg PO DAILY tab 10/16/19 folic acid 800 mcg tablet 1.6 mg PO DAILY tab 10/16/19 polyethylene glycol 3350 17 gram/dose oral powder 17 g PO DAILY PRN 10/16/19 pramipexole 2.25 mg tablet,extended release 24 hr 2.25 mg PO DAILY tab 10/16/19 aspirin 81 mg tablet,delayed release 81 mg PO DAILY #30 tab 11/15/19 atorvastatin 40 mg tablet 40 mg PO DAILY #30 tab 11/15/19 metoprolol tartrate 25 mg tablet 25 mg PO BID #60 tab 11/15/19 ticagrelor 90 mg tablet 90 mg PO BID #60 tab 11/15/19 Primary Care Physician: Humphrey Parisi MD [Primary Care Provider] - Test Results: Test results from this visit will be discussed in further detail at your follow-up appointment, if applicable. Please Follow Up With: Dr. Jean - You will be contaced regarding follow-up When: You will be contacted by [facility] regarding staged procedure Proposed Discharge Date: 11/16/19 Cardiac Rehabilitation Info Cardiac Rehabilitation Program Information: Cardiac Rehabilitation is important for patients like you who are recovering from a heart problem. Cardiac rehabilitation programs are recognized as integral to the continued care of the patient with coronary heart disease. The cardiac rehabilitation program is designed to optimize a patient's physical, psychological, and social functioning. Health day care worker work in cardiac rehabilitation programs and assist you with getting the treatments you need to get stronger and healthier - like exercise, healthy eating habits, and medications. Cardiac rehabilitation has been show to help people with heart problems live longer and have better life enjoyment than people who do not go to cardiac rehabilitation. Please contact the Cardiac Rehabilitation Program at [facility] at in two weeks if you have not heard from them.
[2019-11-15] MEDS: 0.9% Normal Saline 1,000 ML 80 ML IV (13:10)
--- NOTE | 2019-11-15 14:06 | CRPHASE1 ---
Patient Communication PHII Cardiac Rehab Discussed with Patient:: Yes Guide to Cardiac Rehab Given to Patient:: Yes Cardiac Rehab Facility Choice List Given to Patient:: Yes Choice Program Other:: Communication Given to CR Microbiology Laboratory Manager:: Elder Jean Phase II Cardiac Rehab:: Yes Sessions:: 36 sessions - 3 days/wk, 12 weeks Risk Factors/Lifestyle Smoking Status: Never smoker Second-Hand Smoke:: No Hx Hypertension: Yes Hx Diabetes Mellitus Type 1: No Hx Diabetes Mellitus Type 2: No Hx Metabolic Disorders: No Hx Dyslipidemia: Yes Hx Obesity: No Post-Menopausal: No Stress: Long-standing ETOH: No Caffeine: Yes Substance Abuse: No Risk Factor for Sedentary Lifestyle: Moderate Risk Family History: Family History (Last Updated 10/17/19 @ 10:37 by Chandrika Adame) Mother Cancer Brother Cancer Sister Diabetes Heart disease Sister Diabetes Sister Diabetes Cardiac Rehabilitation Info Cardiac Rehabilitation Program Information: Cardiac Rehabilitation is important for patients like you who are recovering from a heart problem. Cardiac rehabilitation programs are recognized as integral to the continued care of the patient with coronary heart disease. The cardiac rehabilitation program is designed to optimize a patient's physical, psychological, and social functioning. Health healthcare sales representative work in cardiac rehabilitation programs and assist you with getting the treatments you need to get stronger and healthier - like exercise, healthy eating habits, and medications. Cardiac rehabilitation has been show to help people with heart problems live longer and have better life enjoyment than people who do not go to cardiac rehabilitation. Please contact the Cardiac Rehabilitation Program at [facility] at in two weeks if you have not heard from them.
--- NOTE | 2019-11-15 14:09 | CRPH1.INSTRU ---
General Education CAD and cardiac anatomy and function:: Patient communicates acknowledgment Explanation of diagnoses and procedures:: Patient communicates acknowledgment Sign/Symptoms of OR:: Patient communicates acknowledgment Antiplatelet therapy: Patient communicates acknowledgment Proper use of NTG-SL: Patient communicates acknowledgment Emergency procedures and activation of EMS: Patient communicates acknowledgment Compliance of all prescribed medications: Patient communicates acknowledgment Dyslipidemia Recommendations Include:: Lipid profile not available Dyslipidemia Response Code:: Patient communicates acknowledgment Overweight/Obesity Patient Overweight/Obesity Risk Factors Are:: BMI Normal [24-29 & > 65 years old] Recommendations Include:: Weight loss of 5-10%, Reduced calorie diet, Exercise 5-7 times/week Overweight/Obesity:: Patient communicates acknowledgment Hypertension Patient Hypertension Risk Factors Are:: No documented hx of HTN Recommendations Include:: Maintain BP <130/85, DASH dietary guidelines, Decrease/maintain normal body weight, Moderation of ETOH Hypertension:: Patient communicates acknowledgment Sedentary Patient Sedentary Risk Factors Are:: Lack of regular exercise Recommendations Include:: Aerobic exercise 5-7 times/week for 20-30 minutes continuously, Benefits of regular exercise, Discussed home walking program, Monitored Outpatient Cardiac Rehab Sedentary Response Code:: Patient communicates acknowledgment Stress Recommendations Include:: Identification of stressors, and assessment of coping skills, Stress management techniques Stress Response Code:: Patient communicates acknowledgment
[2019-11-15] MEDS: Pramipexole Di-HCl 0.25 MG Tablet 0.75 MG PO ×2 (15:39→21:02)
[2019-11-15] MEDS: TICAGRELOR 90 MG TABLET PO (21:01)
[2019-11-15] MEDS: Atorvastatin Calcium 40 MG Tablet PO (21:01)
[2019-11-15] MEDS: Metoprolol Tartrate 25 MG Tablet PO (21:02)
[2019-11-16 03:00] VITALS: BP 138/75; PULSE 66; PULSE 72; RESP 16; TEMP 36.4; O2SAT 98
[2019-11-16 06:07] VITALS: BP 128/69; PULSE 68; RESP 16; TEMP 36.4; O2SAT 96
[2019-11-16] MEDS: Pramipexole Di-HCl 0.25 MG Tablet 0.75 MG PO (06:12)
[2019-11-16 06:24] LABS: Hematocrit 38.7 % (40-54); Hemoglobin 12.8 g/dL (13.0-16.5); Mean Corp Hgb Conc 33.1 g/dL (32-36); Mean Corpuscular Hgb 31.2 pg (27.0-32.0); Mean Corpuscular Volume 94.4 fL (80-94); Mean Platelet Vol. 11.8 fl (6.2-12.0); Platelet Count 153 K/mm3 (150-450); RBC Distribution Width CV 12.5 % (11.6-14.6); RBC Distribution Width SD 43.1 fl (35.1-43.9); White Blood Count 6.9 K/mm3 (4.4-11.0)
[2019-11-16 06:42] VITALS: PULSE 65
[2019-11-16 06:54] LABS: ALB/GLOB Ratio 1.1 RATIO (0.9-2.4); AST(SGOT) 19 U/L (15-37); Alanine Aminotransfer ALT/SGPT 16 U/L (16-61); Albumin, Serum 3.5 g/dL (3.2-5.0); Alkaline Phosphatase 79 U/L (45-117); Anion Gap 2 (5-15); BUN 16 mg/dL (7-18); BUN/Creat Ratio 24.3 RATIO (10-20); Calcium,Total 8.8 mg/dL (8.5-10.1); Chloride 106 mmol/L (98-107); Creatinine, Serum 0.66 mg/dL (0.70-1.30); EST Glomerular Filtration Rate 124 mL/min (>60); Est Glom Filt Rate - Afr Amer 150 mL/min (>60); Estimated Creatinine Clearance 54.05 ml/min; Globulin 3.3 g/dL (2.2-4.2); Glucose 95 mg/dL (74-106); Potassium 3.9 mmol/L (3.5-5.1); Protein, Total 6.8 g/dL (6.4-8.2); Sodium Level 138 mmol/L (136-145)
[2019-11-16] MEDS: Aspirin 81 MG TAB.CHEW PO (07:26)
[2019-11-16 08:58] VITALS: O2SAT 95
[2019-11-16 09:09] VITALS: BP 104/64; PULSE 70; RESP 16; TEMP 36.4; O2SAT 96
[2019-11-16] MEDS: Amantadine 100 MG Capsule 200 MG PO (09:11)
[2019-11-16 09:12] VITALS: BP 104/64; PULSE 70
[2019-11-16] MEDS: Citalopram 20 MG Tablet PO (09:12)
[2019-11-16] MEDS: TICAGRELOR 90 MG TABLET PO (09:12)
[2019-11-16] MEDS: Metoprolol Tartrate 25 MG Tablet PO (09:12)
--- NOTE | 2019-11-16 10:00 | EKG12_ITS ---
Test Reason : AM EKG Blood Pressure : / mmHG Vent. Rate : 064 BPM Atrial Rate : 064 BPM P-R Int : 154 ms QRS Dur : 078 ms QT Int : 406 ms P-R-T Axes : 050 011 098 degrees QTc Int : 418 ms Normal sinus rhythm Nonspecific ST and T wave abnormality Abnormal ECG When compared with ECG of 15-NOV-2019 12:41, MANUAL COMPARISON REQUIRED, DATA IS UNCONFIRMED Confirmed by MEDHAT IVEY ([id number]), video tape editor PERICO SYKES ([id number]) on 11/21/2019 9:13:06 AM Referred By: Elder Jean Confirmed By:MEDHAT IVEY
--- NOTE | 2019-11-16 10:54 | DCINST_ITS ---
Discharge Diet: Low fat/ Low Cholesterol Discharge Activity: Return to Normal Activity May shower in (days): 1 - No tub baths for 5 days May resume sexual activity in: 1-2 weeks Call your doctor if your incision/area has: Continuous Slow Oozing, Sudden Increased Bleeding, Increased Pain/ Swelling, Increased Redness, Foul Smelling Discharge, Swelling at the incision site Call your doctor if you observe: Fever of 101 or Higher, Shortness of breath, Chest pain Remove Dressing in (days):: 1 Cleanse incision/area with: Soap & Water Allergies/Adverse Reactions: Allergies levofloxacin [From Levaquin] Allergy (Intermediate, Verified 10/16/19 11:13) Rash Penicillins Allergy (Intermediate, Verified 10/16/19 11:13) rash Medications to take at Discharge fexofenadine 180 mg tablet 180 mg PO DAILY 10/14/19 amantadine HCl 100 mg capsule 200 mg PO DAILY cap 10/16/19 citalopram 20 mg tablet 20 mg PO DAILY tab 10/16/19 polyethylene glycol 3350 17 gram/dose oral powder 17 g PO DAILY PRN 10/16/19 pramipexole 2.25 mg tablet,extended release 24 hr 2.25 mg PO DAILY tab 10/16/19 Aspirin [Aspirin, Baby] 81 mg PO DAILY@0800 tab.chew 11/16/19 Atorvastatin Calcium [Lipitor] 40 mg PO QHS #30 tab 11/16/19 Metoprolol Tartrate [Lopressor (beta hien)] 25 mg PO BID #60 tab 11/16/19 Ticagrelor [Brilinta] 90 mg PO BID #60 tab 11/16/19 The following prescriptions were given: Ticagrelor [Brilinta] 90 mg PO BID #60 tab Transmission Status: Pending to [facility] Atorvastatin Calcium [Lipitor] 40 mg PO QHS #30 tab Transmission Status: Pending to [facility] Metoprolol Tartrate [Lopressor (beta hien)] 25 mg PO BID #60 tab Transmission Status: Pending to [facility] Primary Care Physician: Humphrey Parisi MD [Primary Care Provider] - Test Results: Test results from this visit will be discussed in further detail at your follow- up appointment, if applicable. Please Follow Up With: Dr. Jean - You will be contaced regarding follow-up When: You will be contacted by [facility] regarding staged procedure Proposed Discharge Date: 11/16/19 Cardiac Rehabilitation Info Cardiac Rehabilitation Program Information: Cardiac Rehabilitation is important for patients like you who are recovering from a heart problem. Cardiac rehabilitation programs are recognized as integral to the continued care of the patient with coronary heart disease. The cardiac rehabilitation program is designed to optimize a patient's physical, psychological, and social functioning. Health transitional care nurse work in cardiac rehabilitation programs and assist you with getting the treatments you need to get stronger and healthier - like exercise, healthy eating habits, and medications. Cardiac rehabilitation has been show to help people with heart problems live longer and have better life enjoyment than people who do not go to cardiac rehabilitation. Please contact the Cardiac Rehabilitation Program at [facility] at in two weeks if you have not heard from them.
--- NOTE | 2019-11-16 10:55 | DS.PCM_ITS ---
<Darling Esposito - Last Filed: 11/16/19 10:55> Discharge Date and Diagnosis - Secondary Discharge Diagnosis Chronic Problems: Chronic Problems (Last Updated 11/15/19 @ 12:00 by Chandrika Adame) Essential hypertension (Chronic) Hospital Course and Treatment Summary of Care Provided: The patient is a 79 year old M 79-year-old patient, has a cardiac catheterization which showed high-grade lesion involving the proximal RCA Underwent PCI and stent by This morning has no symptoms of chest pain, seen and evaluated at bedside along with the nursing staff. Cardiac exam essentially normal. Patient known to have history of Parkinson disease and was on medical therapy. Explained in detail the cardiac medication to the patient, and nursing staff New cardiac medication include low-dose aspirin 81 mg, metoprolol 25 twice daily, atorvastatin 40 mg once a day, Brilinta 90 mg twice a day. Prescription was sent to the local pharmacy. From cardiac standpoint patient is scheduled to see his primary slab inspector Dr. Jean on November 18 To discuss elective PCI of the left circumflex artery. Patient advised to follow-up with his primary care physician for continuation of his medical care. He will be discharged today ,discharge instructions were provided. [] - Physical Exam Vitals/I&O's: Vital Signs Temp Pulse Resp BP Pulse Ox 97.5 F L 70 16 104/64 96 11/16/19 09:09 11/16/19 09:12 11/16/19 09:09 11/16/19 09:12 11/16/19 09:09 Oxygen Delivery Method Room Air Weight: 168 lb 13.985 oz Body Mass Index (BMI) 27.2 Intake and Output for Last 24 Hours 11/14/19 11/15/19 11/16/19 23:59 23:59 23:59 Intake Total 840 / 840 0 / 0 Output Total 625 / 625 275 / 275 Balance 215 / 215 -275 / -275 Laboratory Results 11/16/19 05:15: WBC 6.9, RBC 4.10 L, Hgb 12.8 L, Hct 38.7 L, MCV 94.4 H, MCH 31.2, MCHC 33.1, RDW Std Deviation 43.1, RDW Coeff of Syeda 12.5, Plt Count 153, MPV 11.8 11/16/19 05:15: Sodium 138, Potassium 3.9, Chloride 106, Carbon Dioxide 30.0, Anion Gap 2 L, BUN 16, Creatinine 0.66 L, Estim Creat Clear Calc 54.05, Est GFR (MDRD) Af Amer 150, Est GFR (MDRD) Non-Af 124, BUN/Creatinine Ratio 24.3 H, Glucose 95, Calcium 8.8, Total Bilirubin 0.80, AST 19, ALT 16, Alkaline Phosphatase 79, Total Protein 6.8, Albumin 3.5, Globulin 3.3, Albumin/Globulin Ratio 1.1 Current Medications Amantadine HCl (Symmetrel) 200 mg PO DAILY [facility] Last Admin: 11/16/19 09:11 Dose: 200 mg Documented by: Aspirin (Aspirin, Baby) 81 mg PO DAILY@0800 [facility] Last Admin: 11/16/19 07:26 Dose: 81 mg Documented by: Atorvastatin Calcium (Lipitor) 40 mg PO QHS [facility] Last Admin: 11/15/19 21:01 Dose: 40 mg Documented by: Atropine Sulfate () 0.5 mg IV UD PRN PRN Reason: HR <50 bpm Citalopram Hydrobromide (Celexa) 20 mg PO DAILY [facility] Last Admin: 11/16/19 09:12 Dose: 20 mg Documented by: [facility] Admin: 11/16/19 07:23 Dose: Not Given Documented by: Heparin Sodium (Beef Lung) (Heparin 500 Unit/5 Ml (100/Ml)) 500 unit IV UD PRN PRN Reason: HEPARIN FLUSH Labetalol HCl (Trandate) 5 mg IV X1 PRN PRN Reason: SBP > 160 PRIOR TO SHEATH PULL Loratadine (Claritin) 10 mg PO DAILY [facility] Last Admin: 11/16/19 09:13 Dose: Not Given Documented by: Metoprolol Tartrate (Lopressor (Beta Morgan)) 25 mg PO BID [facility] Last Admin: 11/16/19 09:12 Dose: 25 mg Documented by: Multivitamins ([facility]ivitamin) [facility] Last Admin: 11/16/19 07:23 Dose: Not Given Documented by: Polyethylene Glycol (Miralax) 17 gm PO DAILY PRN PRN Reason: CONSTIPATION Pramipexole Dihydrochloride (Mirapex) 0.75 mg PO TID [facility] Last Admin: 11/16/19 06:12 Dose: 0.75 mg Documented by: Sodium Chloride () 500 ml IV BOLUS PRN PRN Reason: VASO-VAGAL PROTOCOL Sodium Chloride () 10 - 40 ml IV UD PRN PRN Reason: SALINE FLUSH Ticagrelor (Brilinta) 90 mg PO BID [facility] Last Admin: 11/16/19 09:12 Dose: 90 mg Documented by: Discharge Diet: Low fat/ Low Cholesterol Discharge Activity: Return to Normal Activity May shower in (days): 1 - No tub baths for 5 days May resume sexual activity in: 1-2 weeks Call your doctor if your incision/area has: Continuous Slow Oozing, Sudden Increased Bleeding, Increased Pain/ Swelling, Increased Redness, Foul Smelling Discharge, Swelling at the incision site Call your doctor if you observe: Fever of 101 or Higher, Shortness of breath, Chest pain Remove Dressing in (days):: 1 Cleanse incision/area with: Soap & Water Home Medications: Medications to take at Discharge fexofenadine 180 mg tablet 180 mg PO DAILY 10/14/19 amantadine HCl 100 mg capsule 200 mg PO DAILY cap 10/16/19 citalopram 20 mg tablet 20 mg PO DAILY tab 10/16/19 polyethylene glycol 3350 17 gram/dose oral powder 17 g PO DAILY PRN 10/16/19 pramipexole 2.25 mg tablet,extended release 24 hr 2.25 mg PO DAILY tab 10/16/19 Aspirin [Aspirin, Baby] 81 mg PO DAILY@0800 tab.chew 11/16/19 Atorvastatin Calcium [Lipitor] 40 mg PO QHS #30 tab 11/16/19 Metoprolol Tartrate [Lopressor (beta morgan)] 25 mg PO BID #60 tab 11/16/19 Ticagrelor [Brilinta] 90 mg PO BID #60 tab 11/16/19 Following Prescriptions Were Given to Patient: Ticagrelor [Brilinta] 90 mg PO BID #60 tab Transmission Status: Received by [facility] Atorvastatin Calcium [Lipitor] 40 mg PO QHS #30 tab Transmission Status: Received by [facility] Metoprolol Tartrate [Lopressor (beta morgan)] 25 mg PO BID #60 tab Transmission Status: Received by [facility] Primary Care Physician: Humphrey Parisi MD [Primary Care Provider] - Please Follow Up With: Dr. Jean - You will be contaced regarding follow-up When: You will be contacted by [facility] regarding staged procedure Medical Necessity - Tobacco Use Smoking Status: Never smoker Tobacco Use: Non-smoker <Niles Schwartz - Last Filed: 12/06/19 12:58> Discharge Date and Diagnosis - Secondary Discharge Diagnosis Chronic Problems: Chronic Problems (Last Reviewed 11/27/19 @ 15:[address] Elder Jean MD) Essential hypertension (Chronic) Hospital Course and Treatment Summary of Care Provided: The patient is a 79 year old M [] - Physical Exam Vitals/I&O's: Vital Signs Temp Pulse Resp BP Pulse Ox 97.5 F L 70 16 104/64 96 11/16/19 09:09 11/16/19 09:12 11/16/19 09:09 11/16/19 09:12 11/16/19 09:09 Oxygen Delivery Method Room Air Weight: 168 lb 13.985 oz Body Mass Index (BMI) 27.2
--- NOTE | 2019-11-16 11:02 | CASEMGMT ---
RN CM Note: Brilinta card given to patient by nursing with dc instructions. Mary Jo LOWERY RN ACM
--- NOTE | 2019-11-20 00:32 | CL.I_ITS ---
Patient Name: SEAN GILMORE Study Date: 11/15/2019 Performing: Guille Jean MD Ht: 66.14 inches 168 cm : 1940 Wt: 165.35 lbs 75 kg Age: 79 Gender: male BSA: 1.85 PROCEDURE(S) PERFORMED GC16-OXQ/COR [id number] W OR WO PTCA, SINGLE CORONARY ARTERY CLINICAL PROFILE AND CO-MORBIDITIES Indications: Worsening Angina Heart Failure: None Stress/Imaging Stress/Image Study Performed: No CAD Presentations: Unstable angina. CONCLUSIONS CAD as described. No significant . Successful PCI of RCA with JEANETTE. RECOMMENDATIONS ASA Indefinitley Brilinta for at least 12 months Pt. to return for PCI of LCx in 1 week DESCRIPTION OF PROCEDURE The patient arrived to the procedure lab. The risks and benefits of the procedure as well as a full d escription of our services here and lack of surgical backup were fully explained to the patient and/o r their significant other prior to the catheterization. The Timeout was completed, verifying the jamari ect patient and procedure. The patient's procedural site was prepped and draped in the usual fashion. Local anesthetic was given subcutaneously to right radial region with Lidocaine 2%. Using a modified Seldinger technique, arterial access was obtained via the right radial artery, a 6Fr sheath was inse rted.. Left Coronary Artery selective angiography was performed in multiple views using a 5 Fr. JL3. 5 catheter. LV to AO pullback pressures were then recorded. Right Coronary Artery selective angiograp hy was then performed in multiple views using a 5 Fr. JR 4 catheterThe images were reviewed and optio ns discussed. A decision was then made to proceed with an Intervention, IVUS or other adjunct procedure. JR 4 Guide catheter was inserted and engaged into the RCA. BMW Guide wire was advanced to the RCA . 2.5x20 Emerge Balloon catheter was inserted. Balloon catheter was advanced across lesion in the rig ht coronary, mid. PTCA balloon inflated at 12 atms for 22 secs. 3.5x 20 Emerge Balloon catheter was i nserted. Balloon catheter was advanced across lesion in the right coronary, mid. PTCA balloon inflate d at 10 atms for 19 secs. 4x38 Synergy Drug Eluting stent was inserted. Drug Eluting stent was advanc ed across the lesion in the right coronary, mid. Angiogram performed post stent deployment. Angiogram performed post stent deployment. The arterial sheath was pulled and a TR Band was applied for hemo stasis. 12cc of air applied CORONARY ANGIOGRAPHY DOMINANCE: Right Dominant LEFT HEART ASSESSMENT Left Ventricular Ejection Fraction: Not assessed LEFT MAIN: Mild luminal irregularities LEFT ANTERIOR DESCENDING ARTERY: MID LAD: 60 % Stenosis CIRCUMFLEX ARTERY: PROX CIRC: 90 % Stenosis OM 1: Proximal - 95 % Stenosis RIGHT CORONARY ARTERY: MID RCA: 95 % Stenosis VALVE FINDINGS: No Aortic Valve Stenosis INTERVENTION INFORMATION LESION SITE: RCA (Mid) Lesion Complexity: High/C, chronic total occlusion: No, lesion at bifurcation: No, lesion length: 30 mm, culprit lesion: Yes, Previously treated lesion: No Pre Stenosis: 95 % Pre intervention CRISTAL flow: 3 PROCEDURE: Drug Eluting Stent with pre dilatation. Post Stenosis: 0 % Post intervention CRISTAL flow: 3 Lesion Devices: Cardinal 6 Fr JR4 100cm Guide Catheter Francisco .014 BMW Braymer Straight 190cm Dutch Sci EMERGE MR 2.50x20 BALLOON Dutch Sci EMERGE MR 3.50x20 BALLOON Dutch Sci Synergy MR JEANETTE 4.00x38 COMPLICATIONS No Complications PROCEDURE MEDICATIONS Versed 1 mg IV Fentanyl 50 mcg IV Fentanyl 25 mcg IV Oxygen: 2 L/min via nasal cannula Aspirin (325mg) 1 Tabs PO 11/15/2019 11:21:36 Brilinta 180 mg PO @ 11/15/2019 11:22:01 Heparin given IA 11/15/2019 10:48:04 Heparin 3000 unit(s) IV 11/15/2019 11:04:09 Verapamil 2.5mg, Ntg 100mcgs, 3000 units of Heparin given IA 11/15/2019 10:48:04 SUMMARY OF HEMODYNAMIC DATA Time AIR REST ECG 09:24:18 LV 145/-7, 9 10:56:17 LV 150/-7, 10 10:56:23 LVp 144/-7, 11 10:56:30 AOp 146/71 (106) 10:56:35 Signed By Guille Jean MD On 11/18/2019 13:35:40 Guille Jean MD
== END 2019-11-16 11:22 | disposition home or self-care (01) ==
LOC: CLSP 09:02 → PCU 11-18 07:55
PROVIDERS: Referring Provider Specialist; Visit Provider Specialist
DX: I25.110 Atherosclerotic heart disease of native coronary artery with unstable angina pectoris (principal); R06.00 Dyspnea, unspecified; R07.9 Chest pain, unspecified; I10 Essential (primary) hypertension; G20 Parkinson's disease; C91.41 Hairy cell leukemia, in remission; M19.90 Unspecified osteoarthritis, unspecified site; Z79.899 Other long term (current) drug therapy
CPT/HCPCS: 36415; 80053; 85027; 92928; 93005; 93454; 99152; 99153; J7030; J7040; Q9967; C1725; C1769; C1874; C1887; C1894; C9600; J1327

== ENCOUNTER 2019-11-21 09:39 | Day surgery (SDC) | payer MEDICARE, SELFPAY ==
[2019-11-15 12:00] VITALS: BMI 27.2
[2019-11-20 08:40] VITALS: BMI 27.1
[2019-11-21] VITALS (17 sets, daily range): BP systolic 109–148; BP diastolic 59–82; PULSE 50–74; RESP 15–18; TEMP 36.4–36.6; O2SAT 94–100
--- NOTE | 2019-11-21 08:50 | PCM.HP.BLA ---
History and Physical Date of Admission: 11/21/19 History of Present Illness Details: 10/16/2019: 79-year-old gentleman with past medical history of hypertension, reactive airway disease, Parkinson's, leukemia that is under remission coming to see us because of chest pain. The chest pain is retrosternal happens every time with exertion and is relieved with rest. This is been going on for about 3 months. Over the last few days it has been getting worse. We sent him for blood work today that does not reveal significant anemia. His creatinine is normal. His platelets are slightly low at 132. at that OV it was discussed pursuing a heart cath, pt and wanted to think about it. 11/15/2019: Patient underwent heart catheterization which demonstrated left main with mild luminal irregularities, LAD 60% stenosis, proximal circumflex 90% stenosis, proximal OM1 95% stenosis, mid RCA 95% stenosis. Patient underwent stenting to his right coronary with planned staged procedure to his circumflex. 11/21/2019: Patient is here today to undergo his staged procedure for his circumflex. Allergies levofloxacin [From Levaquin] Allergy (Intermediate, Verified 10/16/19 11:13) Rash Penicillins Allergy (Intermediate, Verified 10/16/19 11:13) rash PFSH Medical History Atherosclerosis of coronary artery of [place] heart without angina pectoris (Acute) Dyspnea on exertion (Acute) Essential hypertension (Chronic) Hairy cell leukemia, in remission (Chronic) Idiopathic Parkinson's disease (Chronic) Osteoarthritis (Chronic) Reactive airways dysfunction syndrome (Chronic) Vitamin B-complex deficiency (Resolved) Surgical History History of coronary artery stent placement (Acute 11/15/19) History of arthroscopic knee surgery (Resolved) History of tonsillectomy (Resolved) Family History Mother Cancer Urinary Brother Cancer throat Sister Diabetes Heart disease Open heart surgery, unsure if due to CAD or valve Sister Diabetes Sister Diabetes Social History Smoking Status: Never smoker alcohol intake: never substance use type: does not use caffeine: Yes Type: carbonated beverages ROS Const Const: Positive for fatigue and weakness; negative for headache(s), frequent falls, difficulty sleeping or excessive sweating Eyes Eyes: Negative for loss of peripheral vision, transient loss of vision, blurry vision, double vision or tunnel vision ENT ENT: Positive for balance problems; negative for headache(s) Cardio Chest Pain: Yes Frequency: more than once a day Character: other (pressure) Onset: exercise (walking, stairs) Location: mid sternal Duration: minutes (30 minutes) Exacerbation: activity Relieving: rest Palpitations: Yes (Occurs with chest pressure) feels like its: fast, thumping Edema: Bilateral Muscle aches with walking: None Resp Respiratory: Positive for SOB with activity; negative for SOB at rest, SOB orthopnea\SOB lying down, Cough or paroxysmal nocturnal dyspnea GI GI: Negative nausea, vomiting, heartburn or black,tarry stools : Negative for hematuria Musc Musc: Positive for muscle weakness, joint pain and balance problems; negative for muscle aches/ myalgia Skin Skin: Negative non-healing lesions, rash or unusual bruising Neuro Neuro: Positive for weakness; negative for frequent falls, headache(s), blurry vision or double vision [place] Hematologic/Lymphatic: Negative for easy bleeding or easy bruising Endo Endo: Positive for fatigue; negative for excessive sweating Psych Psych: Negative for anxiety or depression Allergy Allergy/Immunology: Negative for rash Cardiology Exam Const Appearance: cooperative; negative acute distress Nutritional Appearance: well nourished Head Head: normocephalic and atraumatic Ears: hearing grossly normal bilaterally Nose: external nose normal Face and Sinus: face symmetric Mouth: moist mucous membranes Teeth and gingiva: fair dentition Eyes General: appearance normal, both eyes and all related structures Eyelids: eyelids normal Conjunctivae: conjunctivae normal Neck Neck: trachea midline and no JVD Chest Chest inspection: symmetric chest movement; negative pursed lip breathing Auscultation: Bilateral: Clear to Auscultation Cardio Rate: regular rate Rhythm: regular rhythm Heart sounds: S1 normal and S2 normal No Murmurs GI GI: normal to inspection Neuro General: alert, awake and oriented x3 Gait: Negative ataxic Skin Skin: no rashes or lesions noted; negative atrophy or jaundice Extremities Pulses: Normal: Right Posterior Tibial Pulse, Left Posterior Tibial Pulse Lower Extremity Edema: None: Bilateral Musculoskel Musculoskeletal: No joint tenderness Psych Psychological: normal affect Assessment & Plan Problems 1. Atherosclerosis of coronary artery of [place] heart without angina pectoris I25.10 2. Essential hypertension I10 Plan - NINA Willis Pt will under go a stagged PCI today, he will follow up in the office accordingly after. COVID (Procedure Consent) Procedure Criteria Procedure Criteria: Yes Elective The surgeon/proceduralist and patient have discussed in detail the risk of exposure to and/or potential harm posed by the COVID-19 virus with having a surgery/procedure at this time versus the risk of delaying the surgery/procedure. It is not possible to know either the risk of delaying the surgery or procedure or chance of getting an infection with perfect accuracy, but a joint decision was made between the patient and the surgeon/proceduralist to proceed at this time with the scheduled surgery/procedure as indicated on the consent form.
[2019-11-21] MEDS: 0.9% Normal Saline 1,000 ML 60 ML IV (12:00)
--- NOTE | 2019-11-21 12:00 | EKG12_ITS ---
Test Reason : Blood Pressure : / mmHG Vent. Rate : 052 BPM Atrial Rate : 052 BPM P-R Int : 206 ms QRS Dur : 078 ms QT Int : 416 ms P-R-T Axes : -03 002 -03 degrees QTc Int : 386 ms Sinus bradycardia Otherwise normal ECG When compared with ECG of 16-NOV-2019 05:54, Nonspecific T wave abnormality now evident in Inferior leads Confirmed by DEIRDRE BOBBY, BHUPENDRA ([id number]), associate editor STEPHEN LORA ([id number]) on 11/28/2019 11:11:18 AM Referred By: Elder Jean Confirmed By:BHUPENDRA GILMORE MD
--- NOTE | 2019-11-21 12:05 | CRPHASE1_ITS ---
Patient Communication Former Patient:: Phase I - STAGED PCI INTERVENTION, Phase II PHII Cardiac Rehab Discussed with Patient:: Yes Guide to Cardiac Rehab Given to Patient:: Yes Cardiac Rehab Facility Choice List Given to Patient:: Yes Choice Program [facility] CR PHII:: Communication Given to CR, Refer to [facility] Rivet Thrower:: Elder Jean Refer Phase II Cardiac Rehab:: Yes Sessions:: 36 sessions - 3 days/wk, 12 weeks Risk Factors/Lifestyle Family History: Family History (Last Reviewed 11/21/19 @ 09:57 by NINA Willis) Mother Cancer Brother Cancer Sister Diabetes Heart disease Sister Diabetes Sister Diabetes Cardiac Rehabilitation Info Cardiac Rehabilitation Program Information: Cardiac Rehabilitation is important for patients like you who are recovering from a heart problem. Cardiac rehabilitation programs are recognized as integral to the continued care of the patient with coronary heart disease. The cardiac rehabilitation program is designed to optimize a patient's physical, psychological, and social functioning. Health health care legal assistant work in cardiac rehabilitation programs and assist you with getting the treatments you need to get stronger and healthier - like exercise, healthy eating habits, and medications. Cardiac rehabilitation has been show to help people with heart problems live longer and have better life enjoyment than people who do not go to cardiac rehabilitation. Please contact the Cardiac Rehabilitation Program at [facility] at in two weeks if you have not heard from them.
--- NOTE | 2019-11-21 12:06 | CRPH1.INSTRU ---
General Education CAD and cardiac anatomy and function:: Patient communicates acknowledgment Explanation of diagnoses and procedures:: Patient communicates acknowledgment Sign/Symptoms of NM:: Patient communicates acknowledgment Antiplatelet therapy: Patient communicates acknowledgment Proper use of NTG-SL: Patient communicates acknowledgment Emergency procedures and activation of EMS: Patient communicates acknowledgment Compliance of all prescribed medications: Patient communicates acknowledgment - PATIENT PREVIOUSLY SEEN BY CR STAFF AND EDUCATED, STAGED PCI INTERVENTION.
--- NOTE | 2019-11-21 14:49 | CL.I_ITS ---
Patient Name: SEAN GILMORE Study Date: 11/21/2019 Performing: Guille Jean MD Ht: 66.14 inches 168 cm : 1940 Wt: 167.55 lbs 76 kg Age: 79 Gender: male BSA: 1.86 PROCEDURE(S) PERFORMED [id number] W OR WO PTCA, SINGLE CORONARY ARTERY [id number] W OR WO PTCA, EACH ADD'L ARTERY, SAME MAJOR CLINICAL PROFILE AND CO-MORBIDITIES Indications: Worsening Angina Heart Failure: None Stress/Imaging Stress/Image Study Performed: No CAD Presentations: Unstable angina. CONCLUSIONS Successful PTCA/JEANETTE pLCx and OM1 RECOMMENDATIONS ASA Indefinitley Brilinta for at least 12 months Follow up with primary supervisor sunglasses DESCRIPTION OF PROCEDURE The patient arrived to the procedure lab. The risks and benefits of the procedure as well as a full d escription of our services here and current unavailability of surgical backup were fully explained to the patient and/or their significant other prior to the catheterization. The Timeout was completed, verifying the correct patient and procedure. The patient's procedural site was prepped and draped in the usual fashion. Local anesthetic was given subcutaneously to right radial region with Lidocaine 2% . Using a modified Seldinger technique, arterial access was obtained via the right radial artery, a 6 Fr sheath was inserted.. XB3.0 Guide catheter was inserted and engaged into the LCA. BMW Howell Guide wire was advanced to the Circumflex. Emerge 3.0 x 15 Balloon catheter was inserted. Balloon catheter was advanced acro ss lesion in the first obtuse marginal, proximal. PTCA balloon inflated at 10 atms for 16 secs. PTCA balloon inflated at 6 atms for 30 secs. Balloon catheter was repositioned to additional lesion in the circumflex, proximal. PTCA balloon inflated at 10 atms for 15 secs. PTCA balloon inflated at 12 atms for 17 secs. Synergy 3.5 x 38 Drug Eluting stent was inserted. Drug Eluting stent was advanced acros s the lesion in the first obtuse marginal, proximal. Synergy 3.5 x 16 Drug Eluting stent was inserted . Drug Eluting stent was advanced across the lesion in the circumflex, proximal. Angiogram performed post stent deployment. Emerge 1.5 x 15 Balloon catheter was inserted. Balloon catheter was advanced a cross lesion in the first obtuse marginal, proximal. Angiogram performed post balloon dilatation. Synergy 3.0 x 12 Drug Eluting stent was inserted. Drug Eluting stent was advanced across the lesion in the first obtuse marginal, proximal. Angiogram performed post stent deployment. Angiogr am performed post stent deployment. The arterial sheath was pulled and a TR Band was applied for hem ostasis INTERVENTION INFORMATION LESION SITE: 1st OM (Proximal) Lesion Complexity: High/C, chronic total occlusion: No, lesion at bifurcation: Yes, thrombus present: No, lesion length: 25 mm, culprit lesion: Yes, Previously treated lesion: No Pre Stenosis: 95 % Pre intervention CRISTAL flow: 3 PROCEDURE: Drug Eluting Stent with pre and post dilatation The stent entire segment from the ostial LCx into pOM was stented. id LCx was pinched and PTCA was do ne through the stent struts with a 1.5mm balloon. The vessel is 2-25mm in diameter beyond the origin of the OM1 Post Stenosis: 0 % Post intervention CRISTAL flow: 3 Lesion Devices: Francisco .014 BMW Howell Straight 190cm Cardinal 6 Fr XB3.0 100cm Guide Catheter Dutch Sci EMERGE MR 3.00x15 BALLOON Dutch Sci Synergy MR JEANETTE 3.50x38 Dutch Sci EMERGE MR 1.50x15 BALLOON Dutch Sci Synergy MR JEANETTE 3.00x12 LESION SITE: Circumflex (Proximal) Lesion Complexity: High/C, chronic total occlusion: No, lesion at bifurcation: No, thrombus present: No, lesion length: 30 mm, culprit lesion: Yes, Previously treated lesion: No Pre Stenosis: 95 % Pre intervention CRISTAL flow: 3 PROCEDURE: Drug Eluting Stent with pre and post dilatation Post Stenosis: 0 % Post intervention CRISTAL flow: 3 Lesion Devices: Francisco .014 BMW Howell Straight 190cm Cardinal 6 Fr XB3.0 100cm Guide Catheter Dutch Sci EMERGE MR 3.00x15 BALLOON Dutch Sci Synergy MR JEANETTE 3.50x16 COMPLICATIONS No Complications PROCEDURE MEDICATIONS Versed 1 mg IV Fentanyl 50 mcg IV Fentanyl 50 mcg IV Oxygen: 2 L/min via nasal cannula Heparin given IA 11/21/2019 10:58:43 Heparin 2000 unit(s) IV 11/21/2019 10:59:31 Nitro 200 mcg IC 11/21/2019 11:20:14 Nitro 200 mcg IC 11/21/2019 11:20:14 Verapamil 2.5mg, Ntg 100mcgs, 3000 units of Heparin given IA 11/21/2019 10:58:43 SUMMARY OF HEMODYNAMIC DATA Time AIR REST ECG 10:06:36 ECG 10:28:41 AO 102/52 (76) SA 11:00:13 Signed By Guille Jean MD On 11/22/2019 1:26:32 PM Guille Jean MD
[2019-11-21 16:00] LABS: ACT Activated Clotting Time 180 sec (74-137)
[2019-11-21] MEDS: Metoprolol Tartrate 25 MG Tablet PO (21:39)
[2019-11-21] MEDS: TICAGRELOR 90 MG TABLET PO (21:39)
[2019-11-21] MEDS: Atorvastatin Calcium 40 MG Tablet PO (21:39)
[2019-11-21] MEDS: Pramipexole Di-HCl 0.25 MG Tablet 0.75 MG PO (21:40)
[2019-11-22] VITALS (10 sets, daily range): BP systolic 112–132; BP diastolic 51–71; PULSE 60–68; RESP 14–24; TEMP 36.4–37.1; O2SAT 93–96
[2019-11-22] MEDS: DiphenhydrAMINE 25 MG Capsule 50 MG PO (01:02)
[2019-11-22] MEDS: Hydrocortisone 2.5% Crm 1 APPLIC TOPICAL ×2 (01:02→08:19)
[2019-11-22] MEDS: Pramipexole Di-HCl 0.25 MG Tablet 0.75 MG PO ×2 (06:09→13:55)
[2019-11-22 07:24] LABS: Hematocrit 40.3 % (40-54); Hemoglobin 13.4 g/dL (13.0-16.5); Mean Corp Hgb Conc 33.3 g/dL (32-36); Mean Corpuscular Hgb 31.8 pg (27.0-32.0); Mean Corpuscular Volume 95.5 fL (80-94); Mean Platelet Vol. 12.2 fl (6.2-12.0); Platelet Count 157 K/mm3 (150-450); RBC Distribution Width CV 12.5 % (11.6-14.6); RBC Distribution Width SD 43.8 fl (35.1-43.9); Red Blood Count 4.22 M/mm3 (4.6-6.2); White Blood Count 7.3 K/mm3 (4.4-11.0)
[2019-11-22 07:47] LABS: ALB/GLOB Ratio 1.1 RATIO (0.9-2.4); AST(SGOT) 19 U/L (15-37); Alanine Aminotransfer ALT/SGPT 28 U/L (16-61); Albumin, Serum 3.7 g/dL (3.2-5.0); Alkaline Phosphatase 93 U/L (45-117); Anion Gap 3 (5-15); BUN 16 mg/dL (7-18); BUN/Creat Ratio 20.7 RATIO (10-20); Calcium,Total 9.1 mg/dL (8.5-10.1); Chloride 105 mmol/L (98-107); Creatinine, Serum 0.77 mg/dL (0.70-1.30); EST Glomerular Filtration Rate 103 mL/min (>60); Est Glom Filt Rate - Afr Amer 125 mL/min (>60); Estimated Creatinine Clearance 54.05 ml/min; Globulin 3.3 g/dL (2.2-4.2); Glucose 93 mg/dL (74-106); Potassium 3.9 mmol/L (3.5-5.1); Sodium Level 138 mmol/L (136-145)
[2019-11-22] MEDS: Aspirin 81 MG TAB.CHEW PO (09:12)
[2019-11-22] MEDS: Citalopram 20 MG Tablet PO (09:12)
[2019-11-22] MEDS: TICAGRELOR 90 MG TABLET PO (09:12)
[2019-11-22] MEDS: Amantadine 100 MG Capsule 200 MG PO (09:13)
[2019-11-22] MEDS: Loratadine 10 MG Tablet PO (09:13)
[2019-11-22] MEDS: Metoprolol Tartrate 25 MG Tablet PO (09:13)
--- NOTE | 2019-11-22 10:00 | EKG12_ITS ---
Test Reason : AM EKG Blood Pressure : / mmHG Vent. Rate : 061 BPM Atrial Rate : 061 BPM P-R Int : 158 ms QRS Dur : 082 ms QT Int : 430 ms P-R-T Axes : 060 005 -15 degrees QTc Int : 432 ms Normal sinus rhythm Normal ECG When compared with ECG of 21-NOV-2019 12:44, MANUAL COMPARISON REQUIRED, DATA IS UNCONFIRMED Confirmed by LUPIS BOBBY, RYAN ([id number]), news videotape editor STEPHEN LORA ([id number]) on 12/06/2019 1:34:29 PM Referred By: Elder Jean Confirmed By:SHAHANA JEAN MD
--- NOTE | 2019-11-22 12:54 | DCINST_ITS ---
Discharge Diet: Low fat/ Low Cholesterol Discharge Activity: Return to Normal Activity May shower in (days): 1 - No tub baths for 5 days May resume sexual activity in: 1-2 weeks Lifting Restrictions: Do not lift anything greater than 10 pounds for 3 days Call your doctor if your incision/area has: Continuous Slow Oozing, Sudden Increased Bleeding, Increased Pain/ Swelling, Increased Redness, Foul Smelling Discharge, Swelling at the incision site Call your doctor if you observe: Fever of 101 or Higher, Shortness of breath, Chest pain Remove Dressing in (days):: 1 Cleanse incision/area with: Soap & Water Additional Instructions: You will continue current medications. The goal is to be on Aspirin and Brilinta therapy together for at least 1 year. If anyone asks you to stop your Brilinta, please call the [facility] at [phone], option 4. You will be contacted by the [facility] in regards to routine follow-up appointment in approximately 2-4 weeks. If you have any questions or concerns at any point, please call the [facility] at [phone], option 4. Allergies/Adverse Reactions: Allergies levofloxacin [From Levaquin] Allergy (Intermediate, Verified 10/16/19 11:13) Rash Penicillins Allergy (Intermediate, Verified 10/16/19 11:13) rash Medications to take at Discharge fexofenadine 180 mg tablet 180 mg PO DAILY 10/14/19 amantadine HCl 100 mg capsule 200 mg PO DAILY cap 10/16/19 citalopram 20 mg tablet 20 mg PO DAILY tab 10/16/19 polyethylene glycol 3350 17 gram/dose oral powder 17 g PO DAILY PRN 10/16/19 pramipexole 2.25 mg tablet,extended release 24 hr 2.25 mg PO DAILY tab 10/16/19 Aspirin [Aspirin, Baby] 81 mg PO DAILY@0800 tab.chew 11/16/19 Atorvastatin Calcium [Lipitor] 40 mg PO QHS #30 tab 11/16/19 Metoprolol Tartrate [Lopressor (beta hien)] 25 mg PO BID #60 tab 11/16/19 Ticagrelor [Brilinta] 90 mg PO BID #60 tab 11/16/19 Primary Care Physician: Humphrey Parisi MD [Primary Care Provider] - Test Results: Test results from this visit will be discussed in further detail at your follow- up appointment, if applicable. Please Follow Up With: [facility] Proposed Discharge Date: 11/23/19 Cardiac Rehabilitation Info Cardiac Rehabilitation Program Information: Cardiac Rehabilitation is important for patients like you who are recovering from a heart problem. Cardiac rehabilitation programs are recognized as integral to the continued care of the patient with coronary heart disease. The cardiac rehabilitation program is designed to optimize a patient's physical, psychological, and social functioning. Health career placement specialist work in cardiac rehabilitation programs and assist you with getting the treatments you need to get stronger and healthier - like exercise, healthy eating habits, and medications. Cardiac rehabilitation has been show to help people with heart problems live longer and have better life enjoyment than people who do not go to cardiac rehabilitation. Please contact the Cardiac Rehabilitation Program at [facility] at in two weeks if you have not heard from them.
--- NOTE | 2019-11-22 14:00 | NURSING ---
Read and reviewed SN Documentation
--- NOTE | 2019-11-22 14:15 | DS.PCM_ITS ---
Discharge Date and Diagnosis Date of Admission: 11/21/19 Date of Discharge: 11/22/19 - Primary Discharge Diagnosis Acute Problems: 1. Unstable angina 2. Coronary artery disease 3. Status post coronary artery stent placement - Secondary Discharge Diagnosis Chronic Problems: Chronic Problems (Last Reviewed 11/21/19 @ 09:57 by NINA Willis) Essential hypertension (Chronic) Hospital Course and Treatment Summary of Care Provided: Patient return for staged PCI of the circumflex. Patient underwent PCI of the circumflex and OM 1 without any complications. He had an uneventful hospital course and is being discharged home in stable condition. He does have a rash in his back that was also present prior to discharge 1 week back. Patient apparently started feeling better as far as the rash is concerned and then started having it again yesterday. Patient's was wondering if it was any of the chemicals that we are used in cleaning the cath table. Advised the pa tient to keep an eye on the rash over the weekend. Patient continues to have a rash by Monday he will let us know and we will try switching from Brilinta to Plavix to see if this will help. - Physical Exam Vitals/I&O's: Vital Signs Temp Pulse Resp BP Pulse Ox 97.6 F L 65 18 112/51 L 95 11/22/19 09:10 11/22/19 11:05 11/22/19 09:10 11/22/19 09:10 11/22/19 09:10 Oxygen Delivery Method Room Air Weight: 168 lb Body Mass Index (BMI) 27.1 Intake and Output for Last 24 Hours 11/20/19 11/21/19 11/22/19 23:59 23:59 23:59 Intake Total 1010 / 1070 282 / 282 Balance 1010 / 1070 282 / 282 General: Alert, Oriented x3, Cooperative HEENT: Atraumatic Oral: Moist Mucosa Neck: Supple Cardiovascular: Regular Rhythm Laboratory Results 11/21/19 11:26: Activated Clotting Time 180 H 11/22/19 06:52: WBC 7.3, RBC 4.22 L, Hgb 13.4, Hct 40.3, MCV 95.5 H, MCH 31.8, MCHC 33.3, RDW Std Deviation 43.8, RDW Coeff of Syeda 12.5, Plt Count 157, MPV 12.2 H 11/22/19 06:52: Sodium 138, Potassium 3.9, Chloride 105, Carbon Dioxide 30.0, Anion Gap 3 L, BUN 16, Creatinine 0.77, Estim Creat Clear Calc 54.05, Est GFR (MDRD) Af Amer 125, Est GFR (MDRD) Non-Af 103, BUN/Creatinine Ratio 20.7 H, Glucose 93, Calcium 9.1, Total Bilirubin 0.80, AST 19, ALT 28, Alkaline Phosphatase 93, Total Protein 7.0, Albumin 3.7, Globulin 3.3, Albumin/Globulin Ratio 1.1 Current Medications Amantadine HCl (Symmetrel) 200 mg PO DAILY [facility] Last Admin: 11/22/19 09:13 Dose: 200 mg Documented by: Aspirin (Aspirin, Baby) 81 mg PO DAILY@0800 [facility] Last Admin: 11/22/19 09:12 Dose: 81 mg Documented by: Atorvastatin Calcium (Lipitor) 40 mg PO QHS [facility] Last Admin: 11/21/19 21:39 Dose: 40 mg Documented by: Atropine Sulfate () 0.5 mg IV UD PRN PRN Reason: HR <50 bpm Citalopram Hydrobromide (Celexa) 20 mg PO DAILY [facility] Last Admin: 11/22/19 09:12 Dose: 20 mg Documented by: Heparin Sodium (Beef Lung) (Heparin 500 Unit/5 Ml (100/Ml)) 500 unit IV UD PRN PRN Reason: HEPARIN FLUSH Hydrocortisone (Hytone) 1 applic TOPICAL TID PRN PRN; Protocol PRN Reason: RASH/TOPICAL IRRITATION Last Admin: 11/22/19 08:19 Dose: 1 applicatio Documented by: Labetalol HCl (Trandate) 5 mg IV X1 PRN PRN Reason: SBP > 160 when pulling sheath Loratadine (Claritin) 10 mg PO DAILY [facility] Last Admin: 11/22/19 09:13 Dose: 10 mg Documented by: Metoprolol Tartrate (Lopressor (Beta Morgan)) 25 mg PO BID [facility] Last Admin: 11/22/19 09:13 Dose: 25 mg Documented by: Polyethylene Glycol (Miralax) 17 gm PO DAILY PRN PRN Reason: CONSTIPATION Pramipexole Dihydrochloride (Mirapex) 0.75 mg PO TID [facility] Last Admin: 11/22/19 13:55 Dose: 0.75 mg Documented by: Sodium Chloride () 500 ml IV BOLUS PRN PRN Reason: FOR SBP<95mmHg and/or HR<50bpm Ticagrelor (Brilinta) 90 mg PO BID [facility] Last Admin: 11/22/19 09:12 Dose: 90 mg Documented by: Discharge Diet: Low fat/ Low Cholesterol Discharge Activity: Return to Normal Activity May shower in (days): 1 - No tub baths for 5 days May resume sexual activity in: 1-2 weeks Call your doctor if your incision/area has: Continuous Slow Oozing, Sudden Increased Bleeding, Increased Pain/ Swelling, Increased Redness, Foul Smelling Discharge, Swelling at the incision site Call your doctor if you observe: Fever of 101 or Higher, Shortness of breath, Chest pain Remove Dressing in (days):: 1 Cleanse incision/area with: Soap & Water Home Medications: Medications to take at Discharge fexofenadine 180 mg tablet 180 mg PO DAILY 10/14/19 amantadine HCl 100 mg capsule 200 mg PO DAILY cap 10/16/19 citalopram 20 mg tablet 20 mg PO DAILY tab 10/16/19 polyethylene glycol 3350 17 gram/dose oral powder 17 g PO DAILY PRN 10/16/19 pramipexole 2.25 mg tablet,extended release 24 hr 2.25 mg PO DAILY tab 10/16/19 Aspirin [Aspirin, Baby] 81 mg PO DAILY@0800 tab.chew 11/16/19 Atorvastatin Calcium [Lipitor] 40 mg PO QHS #30 tab 11/16/19 Metoprolol Tartrate [Lopressor (beta morgan)] 25 mg PO BID #60 tab 11/16/19 Ticagrelor [Brilinta] 90 mg PO BID #60 tab 11/16/19 Primary Care Physician: Humphrey Parisi MD [Primary Care Provider] - Please Follow Up With: [facility] When: Ranjit Please Follow Up With: Elder Jean MD Additional Instructions: You will continue current medications. The goal is to be on Aspirin and Brilinta therapy together for at least 1 year. If anyone asks you to stop your Brilinta, please call the [facility] at [phone], option 4. You will be contacted by the [facility] in regards to routine follow-up appointment in approximately 2-4 weeks. If you have any questions or concerns at any point, please call the [facility] at [phone], option 4. Meaningful Use Info Meaningful Use Diagnoses (Choose all that apply): None applicable
== END 2019-11-22 14:13 | disposition home or self-care (01) ==
LOC: CLSP 09:39 → PCU 11-22 06:34
PROVIDERS: Referring Provider Specialist; Visit Provider Specialist
DX: I25.110 Atherosclerotic heart disease of native coronary artery with unstable angina pectoris (principal); R21 Rash and other nonspecific skin eruption; I10 Essential (primary) hypertension; G20 Parkinson's disease; J45.909 Unspecified asthma, uncomplicated; C91.41 Hairy cell leukemia, in remission; M19.90 Unspecified osteoarthritis, unspecified site; Z79.82 Long term (current) use of aspirin; Z79.899 Other long term (current) drug therapy; Z79.02 Long term (current) use of antithrombotics/antiplatelets
CPT/HCPCS: 80053; 85027; 85347; 92928; 92929; 93005; 99152; 99153; J7030; J7040; Q9967; C1725; C1769; C1874; C1887; C1894; C9600; C9601

== ENCOUNTER 2020-11-16 17:35 | Emergency (ER) | payer MEDICARE, SELFPAY ==
[2020-11-16 17:37] VITALS: BP 150/71; PULSE 72; RESP 16; TEMP 36.8; O2SAT 97; BMI 25.8
--- NOTE | 2020-11-16 18:08 | CT_ITS ---
EXAM: CT HEAD WITHOUT INTRAVENOUS CONTRAST : 1940 CLINICAL INDICATION: Trauma TECHNIQUE: Multiple axial images were obtained of the head without intravenous contrast. This CT exam was performed using one or more of the following dose reduction techniques: automated exposure control, adjustment of the mA and/or kV according to patient size, and/or use of iterative reconstruction technique. This report was created using [employer] report generation technology. COMPARISON: None. FINDINGS: BRAIN AND EXTRA-AXIAL SPACES: There is mild enlargement of the ventricular system and cortical sulci. There is hypoattenuation in the periventricular white matter. No intra- or extra-axial hemorrhage. No evidence of acute infarct. No intracranial mass or mass effect. There is preservation of the fitzpatrick/white matter interface. Posterior fossa structures are unremarkable. Basal cisterns are patent. BONES/JOINTS: Unremarkable. No discrete lytic or blastic abnormalities. SINUSES: Unremarkable as visualized. Clear. MASTOID AIR CELLS: Unremarkable. Clear. ORBITS: Visualized globes, extraocular muscles, optic nerves and retrobulbar fat appear unremarkable. CT/Brain/Head without Contrast IMPRESSION: 1. No acute intracranial abnormality. 2. Underlying senescent change with small vessel ischemia. Individualized dose optimization techniques were used for this CT. at 1916 Reported and signed by: Rusty Martinez MD Electronically Signed: Rusty Martinez MD at 19:15 EDT Tel , Service support ,
--- NOTE | 2020-11-16 18:08 | CT_ITS ---
EXAM: CT CERVICAL SPINE WITHOUT INTRAVENOUS CONTRAST : 1940 CLINICAL INDICATION: Trauma TECHNIQUE: Helically acquired images were obtained of the cervical spine without intravenous contrast. 2D reformatted images were reviewed. This CT exam was performed using one or more of the following dose reduction techniques: automated exposure control, adjustment of the mA and/or kV according to patient size, and/or use of iterative reconstruction technique. This report was created using [employer] report generation technology. COMPARISON: None. FINDINGS: VERTEBRAE: Unremarkable. No fracture. No traumatic subluxation. No discrete lytic or blastic abnormality. Normal alignment. Normal craniocervical junction and cervicothoracic junction. DISCS/SPINAL CANAL/NEURAL FORAMINA: There is mild disc space narrowing at C6-7. SOFT TISSUES: Unremarkable. No prevertebral soft tissue swelling. LYMPH NODES: Unremarkable. No cervical adenopathy. LUNG APICES: Unremarkable as visualized. Clear. CT/Spine Cervical without Contras IMPRESSION: No acute findings in the cervical spine. Individualized dose optimization techniques were used for this CT. at 1919 Reported and signed by: Rusty Martinez MD Electronically Signed: Rusty Martinez MD at 19:18 EDT Tel , Service support ,
[2020-11-16] MEDS: Morphine 4 MG/ML Syringe IV (18:35)
[2020-11-16] MEDS: Ondansetron 4 MG/2 ML Vial IV (18:35)
[2020-11-16 18:38] VITALS: BP 171/67; PULSE 73; RESP 16; O2SAT 93
--- NOTE | 2020-11-16 18:45 | RAD_ITS ---
EXAM: XR RIGHT RIBS AND AP CHEST, 3 OR MORE VIEWS : 1940 CLINICAL INDICATION: Pain after fall TECHNIQUE: Frontal and oblique views of the right ribs and frontal view of the chest. This report was created using [employer] report generation technology. COMPARISON: None. FINDINGS: LUNGS AND PLEURAL SPACES: Unremarkable. No consolidation or edema. No pneumothorax. No effusion. HEART: Unremarkable. Cardiac silhouette not enlarged. MEDIASTINUM: Central airways and mediastinal contour are unremarkable. BONES/JOINTS: Unremarkable. No evidence of displaced rib fractures. RAD/Ribs Uni Min 3V w/PA Chest IMPRESSION: Negative chest and right ribs series. at 1945 Reported and signed by: Rusty Martinez MD Electronically Signed: Rusty Martinez MD at 19:44 EDT Tel , Service support ,
--- NOTE | 2020-11-16 18:45 | RAD_ITS ---
EXAM: XR RIGHT SHOULDER COMPLETE, 2 OR MORE VIEWS : 1940 CLINICAL INDICATION: Injury/Pain TECHNIQUE: Two or more views of the right shoulder. This report was created using [employer] report generation technology. COMPARISON: None. FINDINGS: BONES/JOINTS: There is severe narrowing of the glenohumeral joint with sclerosis. There is also narrowing of the acromioclavicular joint. No acute fracture. No subluxation. Normal alignment. SOFT TISSUES: Unremarkable. No soft tissue swelling or gas. No radiopaque foreign body. OTHER FINDINGS: There is mild flattening of the humeral head. 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 There is also flattening of the humeral head. There are no acute osseous abnormalities. at 1926 Reported and signed by: Rusty Martinez MD Electronically Signed: Rusty Martinez MD at 19:25 EDT Tel , Service support ,
[2020-11-16 18:46] LABS: Absolute Lymphocyte Count 0.79 X10^3/uL (0.83-4.51); Absolute Neutrophil Count 6.3 X10^3/uL (2.0-7.7); Basophil# 0.04 X10^3/uL; Basophil% 0.5 % (0-1); Eosinophil# 0.29 X10^3/uL; Eosinophils% 3.6 % (0-5); Lymphocyte # 0.79 X10^3/ul (0.83-4.51); Lymphocyte % 9.7 % (19-41); Mean Corp Hgb Conc 31.7 g/dL (32-36); Mean Corpuscular Hgb 30.7 pg (27.0-32.0); Mean Corpuscular Volume 96.7 fL (80-94); Mean Platelet Vol. 11.3 fl (6.2-12.0); Monocyte# 0.61 X10^3/uL; Monocyte% 7.5 % (0-10); NRBC Flagged by Analyzer 0 % (0-5); Neutrophil # 6.34 X10^3/uL (2.7-7.7); Neutrophil % 78.2 % (47-70); Platelet Count 162 K/mm3 (150-450); RBC Distribution Width CV 13.2 % (11.6-14.6); RBC Distribution Width SD 46.9 fl (35.1-43.9); Red Blood Count 4.24 M/mm3 (4.6-6.2); White Blood Count 8.1 K/mm3 (4.4-11.0)
[2020-11-16 19:00] VITALS: RESP 16
--- NOTE | 2020-11-16 19:10 | EKG12_ITS ---
Test Reason : FALL Blood Pressure : / mmHG Vent. Rate : 071 BPM Atrial Rate : 071 BPM P-R Int : 156 ms QRS Dur : 078 ms QT Int : 386 ms P-R-T Axes : 058 -10 020 degrees QTc Int : 419 ms Normal sinus rhythm Normal ECG Confirmed by DEIRDRE BOBBY, BHUPENDRA ([id number]), rewrite editor STEPHEN LORA ([id number]) on 11/19/2020 10:25:04 AM Referred By: Confirmed By:BHUPENDRA GILMORE MD
[2020-11-16] MEDS: Diphth,Pertuss(Acell),Tet Vac 0.5 ML Vial IM (19:18)
[2020-11-16 19:29] LABS: Anion Gap 4 (5-15); BUN 14 mg/dL (7-18); Calcium,Total 9.3 mg/dL (8.5-10.1); Chloride 106 mmol/L (98-107); Creatinine, Serum 0.67 mg/dL (0.70-1.30); EST Glomerular Filtration Rate 122 mL/min (>60); Est Glom Filt Rate - Afr Amer 147 mL/min (>60); Estimated Creatinine Clearance 53.17 ml/min; Glucose 98 mg/dL (74-106); Potassium 5.5 mmol/L (3.5-5.1); Sodium Level 139 mmol/L (136-145)
--- NOTE | 2020-11-16 20:20 | EDS_ITS ---
HPI History of Present Illness Chief Complaint: Fall Informant: patient, spouse/S.O. and family Onset/Context/Timing Onset: Hours Mechanism/Context: Blunt Injury and Fall Location: Head, right shoulder, right rib cage, right knee and neck Current Severity: Mild Maximum Severity: Moderate Worsened by: Right shoulder and rib cage pain worse with movement and breathing respecti Relieved by: Nothing Associated Symptoms Associated Symptoms: Positive for Loss of function (Transient); Negative for Parasthesias, Weakness and Amnesia Narrative Narrative: Patient is an elderly male with history of Parkinson disease and frequent falls who was walking into the house. He lost his balance fell backwards. He has a contusion over the right side of the forehead near the hairline. He also complains of right shoulder and right rib cage pain. He also reports right knee pain. There are old as well as new injuries according the son. He also complains of neck pain. He did have transient loss of conscious. He does complain of headache. He is on Plavix. He is not on an anticoagulant. He denies change in his vision or double vision. Denies ringing in his ears or decreased hearing. He denies his teeth not lining up. He denies epistaxis. He denies paresthesia, anesthesia or motor weakness upper lower extremity. He denies shortness of breath or difficulty breathing. Denies abdominal pain. Denies low back pain. Tetanus Immunization: >10 years Prior similar symptoms: No Recent Illness/Hospitalization: No [facility] Medical History (Updated 11/16/20 @ 20:[address] Hayder Marques MD) Atherosclerosis of coronary artery of [place] heart without angina pectoris Dyspnea on exertion Essential hypertension Hairy cell leukemia, in remission Idiopathic Parkinson's disease Osteoarthritis Reactive airways dysfunction syndrome Vitamin B-complex deficiency Home Medications citalopram 20 mg tablet 20 mg PO DAILY tab 10/16/19 [History Last Taken 11/15/19] polyethylene glycol 3350 17 gram/dose oral powder 17 g PO DAILY PRN 10/16/19 [History Last Taken Unknown] aspirin 81 mg PO DAILY@0800 tab.chew 11/16/19 [Rx Last Taken 11/21/19] clopidogrel 75 mg tablet 75 mg PO DAILY #90 tab 01/29/20 [Rx Last Taken Unknown] naproxen sodium 220 mg capsule 220 mg PO BID PRN 01/29/20 [History Last Taken Unknown] amantadine HCl 100 mg capsule 100 mg PO BID cap 08/03/20 [History Last Taken Unknown] loratadine 10 mg tablet 10 mg PO DAILY PRN 08/03/20 [History Last Taken Unknown] pramipexole 0.75 mg tablet 0.75 mg PO TID tab 08/03/20 [History Last Taken Unknown] atorvastatin 40 mg tablet 40 mg PO QHS #90 tab 10/22/20 [Rx Last Taken Unknown] metoprolol tartrate 25 mg tablet 25 mg PO BID #180 tab 10/22/20 [Rx Last Taken Unknown] acetaminophen [Tylenol] 325 mg PO Q6H PRN 11/16/20 [History Last Taken Unknown] cholecalciferol (vitamin D3) [Vitamin D3] 100 mcg PO DAILY 11/16/20 [History Last Taken Unknown] Allergy/AdvReac Type Severity Reaction Status Date / Time levofloxacin [From Levaquin] Allergy Intermediate Rash Verified 11/16/20 17:43 Penicillins Allergy Intermediate rash Verified 11/16/20 17:43 Family History Mother Cancer Urinary Brother Cancer throat Sister Diabetes Heart disease Open heart surgery, unsure if due to CAD or valve Sister Diabetes Sister Diabetes Surgical History History of arthroscopic knee surgery History of coronary artery stent placement (11/21/19) History of tonsillectomy Social History Smoking Status: Never smoker alcohol intake: never substance use type: does not use caffeine: Yes Type: carbonated beverages ROS ROS ED Constitutional Constitutional ED: Denies chills, fever(s), subjective or sweats Eyes Eyes: Denies blurry vision or change in vision ENT ENT ED: Denies ear pain, rhinorrhea or sore throat Cardiovascular Cardiovascular: Denies chest pain, palpitations or racing heartbeat Respiratory/Chest Respiratory/Chest: Denies cough, dyspnea or dyspnea on exertion Gastrointestinal Gastrointestinal: Denies abdominal pain, nausea or vomiting Genitourinary Genitourinary ED: Denies dysuria, hematuria or urinary frequency Musculoskeletal Musculoskeletal: Reports neck pain and other Details: Per HPI ; Denies arthralgias or myalgias Integumentary Reports Abrasions Neurologic Neurologic: Reports headache(s); Denies paresthesias or weakness Psychiatric Psychiatric: Reports depression Hematologic/Lymphatic Hematologic/Lymphatic: Denies easy bleeding or easy bruising EXAM Physical Exam Const Vital Signs: 11/16/20 17:37 11/16/20 17:44 11/16/20 18:38 Temperature 98.2 F Temperature Source Oral Pulse Rate 72 73 Respiratory Rate 16 16 Respiratory Effort Normal Respiratory Depth Normal Respiratory Pattern Normal Blood Pressure 150/71 H 171/67 H Blood Pressure Mean 97 101 Pulse Ox 97 93 Oxygen Delivery Method Room Air 11/16/20 19:00 Temperature Temperature Source Pulse Rate Respiratory Rate 16 Respiratory Effort Respiratory Depth Respiratory Pattern Blood Pressure Blood Pressure Mean Pulse Ox Oxygen Delivery Method Positive well nourished and well developed Constitutional Narrative: Patient has a flat affect due to Parkinson's. General Appearance ED: well developed and NAD HEENT Reports TM's clear HEENT Narrative: There is no septal deviation hematoma noted. There is no hemotympanum. There is no evidence of basilar skull fracture. There is no hyperesthesia of the infraorbital nerve. There is no step-off of the infraorbi amaris rim. There is no evidence of entrapment. trauma and tenderness Nose: Negative for septum abnormal Tympanic Membrane ED: Yes TM's clear Eyes PERRL and EOMs intact bilaterally General Eye ED: Yes other Other Details: There is no subconjunctival hemorrhage noted. Neck Neck Narrative: Tenderness noted over the spinous process of C6 and C7. General: tenderness Resp normal respiratory effort and clear to auscultation bilaterally Cardio regular rhythm, S1 normal heart sound, S2 normal heart sound and no murmurs Rate: regular rate GI normal to inspection, nondistended, normoactive bowel sounds, non-tender and non-distended Palpation: soft Back/Spine normal to inspection and no thoracic nor lumbar tenderness General Back: Negative for CVA tenderness Thoracic Spine / Upper Back: Negative for thoracic spinal tenderness Extremity full ROM; Negative for normal to inspection Extremity Narrative: There is an abrasion over the right patella. The patella is not ballotable and there was an effusion. Tapping on the patella causes no discomfort. He has no joint line tenderness. Is no laxity with varus valgus stress testing. Modified Merritt's test is negative. Fernando's test was negative. He is able to extend and hold for 3 seconds. General Extremety ED: Yes tenderness General Extremity: other findings Other Details: There is a skin tear proximal dorsal radial side of the right forearm. There is no pain the patient over the lateral medial epicondyle. Is no pain the patient with olecranon process. There is no pain the patient of the radial head with supination pronation. Neuro oriented x3, CN's II-XII intact bilaterally, moves all extremities and no focal motor deficits Spangler Coma Scale: document GCS findings Spontaneous Obeys Commands Oriented 15 Sensorium / Orientation: alert Motor Exam: strength 5/5 throughout Deep Tendon Reflexes: Rt Triceps (C7): 1+, Lt Triceps (C7): 1+, Rt Biceps (C5, C6): 1+, Lt Biceps (C5, C6): 1+, Rt Brachioradialis (C6): 1+, Lt Brachioradialis (C6): 1+, Rt Patellar (L4): 1+, Lt Patellar (L4): 1+, Rt Ankle (S1): 1+ and Lt Ankle (S1): 1+ Deep Tendon Reflexes Back: Rt Patellar (L4): 1+, Lt Patellar (L4): 1+, Rt Ankle (S1): 1+ and Lt Ankle (S1): 1+ Psych mental status grossly normal and thought process normal Psych Narrative: Affect is depressed secondary to Parkinson's Skin no rashes or lesions noted Trauma: abrasion MDM MDM MDM Narrative Medical decision making narrative: Per the [place] CT head rule with complaint of headache, age greater than 65 and loss of conscious CT of the head was obtained interpreted by radiologist reviewed by me as negative for any acute process. C-spine was obtained to rule out strain versus fracture. There is no acute abnormalities noted per radiologist. There is degenerative changes noted. Shoulder x-ray was obtained and was interpreted by me as no acute process. There is significant degenerative changes of the glenoid fossa. 3 views were obtained 4 views of the right rib cage were obtained. There is no months of pneumothorax or hemothorax. There is no evidence of fractured ribs. Lung parenchyma looks fine. Cardiac silhouette size normal. Mediastinum is unremarkable. Lab Data Attestation: I reviewed the patient's lab results. Labs: Laboratory Results - last 24 hr 11/16/20 11/16/20 18:27 18:27 WBC 8.1 RBC 4.24 L Hgb 13.0 Hct 41.0 MCV 96.7 H MCH 30.7 MCHC 31.7 L RDW Std Deviation 46.9 H RDW Coeff of Syeda 13.2 Plt Count 162 MPV 11.3 Immature Gran % (Auto) 0.500 Neut % (Auto) 78.2 H Lymph % (Auto) 9.7 L [place] % (Auto) 7.5 Eos % (Auto) 3.6 Baso % (Auto) 0.5 Absolute Neuts (auto) 6.3 Absolute Lymphs (auto) 0.79 L Nucleated RBC % 0 Sodium 139 Potassium 5.5 H Chloride 106 Carbon Dioxide 29.0 Anion Gap 4 L BUN 14 Creatinine 0.67 L Estim Creat Clear Calc 53.17 Est GFR (MDRD) Af Amer 147 Est GFR (MDRD) Non-Af 122 BUN/Creatinine Ratio 21.0 H Glucose 98 Calcium 9.3 Radiography Diagnostic Testing: Radiology Impression Brain CT 11/16/20 18:08 IMPRESSION: 1. No acute intracranial abnormality. 2. Underlying senescent change with small vessel ischemia. Individualized dose optimization techniques were used for this CT. at 1916 Reported and signed by: Rusty Martinez MD Electronically Signed: Rusty Martinez MD at 19:15 EDT Tel , Service support , Cervical Spine CT 11/16/20 18:08 IMPRESSION: No acute findings in the cervical spine. Individualized dose optimization techniques were used for this CT. at 1919 Reported and signed by: Rusty Martinez MD Electronically Signed: Rusty Martinez MD at 19:18 EDT Tel , Service support , Ribs w/Chest X-Ray 11/16/20 18:45 IMPRESSION: Negative chest and right ribs series. at 1945 Reported and signed by: Rusty Martinez MD Electronically Signed: Rusty Martinez MD at 19:44 EDT Tel , Service support , Shoulder X-Ray 11/16/20 18:45 IMPRESSION: Severe arthritic changes in the shoulder with narrowing of the glenohumeral joint with sclerosis. There is also flattening of the humeral head. There are no acute osseous abnormalities. at 1926 Reported and signed by: Rusty Martinez MD Electronically Signed: Rusty Martinez MD at 19:25 EDT Tel , Service support , EKG Initial EKG: Attestation: I personally reviewed and interpreted this EKG as follows: Interpretation: Sinus Rhythm (The EKG is normal. Ventricular rate of 71. KS interval significant 6 ms. QS duration 70 ms. QT duration 386 ms. [place] is normal.) Discharge Plan Triage Chief Complaint: Fall ED Provider: Hayder Marques Dx/Rx/DC Orders Clinical Impression: Concussion with loss of consciousness <= 30 min, Acute cervical myofascial strain, Contusion of right back wall of thorax, initial encounter, Muscle strain of right shoulder, Contusion of right knee, initial encounter, Abrasion of face and extremities Instructions: ED Abrasion, ED Concussion, ED Contusion, Lower Extremity, ED Neck Sprain or Strain Prescriptions: No Action citalopram 20 mg tablet 20 mg PO DAILY RF: 0 amantadine HCl 100 mg capsule 100 mg PO BID RF: 0 polyethylene glycol 3350 [Miralax] 17 gram/dose powder 17 g PO DAILY PRN (Reason: Constipation) RF: 0 naproxen sodium [Aleve] 220 mg capsule 220 mg PO BID PRNRF: 0 clopidogrel 75 mg tablet 75 mg PO DAILY Qty: 90 RF: 3 loratadine 10 mg tablet 10 mg PO DAILY PRN (Reason: other) RF: 0 pramipexole 0.75 mg tablet 0.75 mg PO TID RF: 0 aspirin 81 MG tablet,chewable 81 mg PO DAILY@0800 RF: 0 acetaminophen [Tylenol] 325 mg Tablet 325 mg PO Q6H PRN (Reason: Pain) RF: 0 Vitamin D3 100 mcg (4,000 unit) Capsule 100 mcg PO DAILY RF: 0 atorvastatin 40 mg tablet 40 mg PO QHS Qty: 90 RF: 3 metoprolol tartrate 25 mg tablet 25 mg PO BID Qty: 180 RF: 3 Primary Care Provider: Humphrey Moreau Referrals: Humphrey Moreau MD [Primary Care Provider] - 1 Week if not improving Activity Restrictions/Additional Instructions: 1. Apply ice to areas of discomfort 6-8 times a day 2. You will feel worse over the next 24 to 48 hours and hurt more places 3. You may hurt for 3 to 7 days 4. Take Tylenol for pain Disposition Disposition: Home, Self Care
[2020-11-16 20:26] VITALS: BP 164/67; O2SAT 95
== END 2020-11-16 21:12 | disposition home or self-care (01) ==
PROVIDERS: Emergency Provider Emergency Medicine; PCP Family Medicine
DX: S06.0X1A Concussion with loss of consciousness of 30 minutes or less, initial encounter (principal); S16.1XXA Strain of muscle, fascia and tendon at neck level, initial encounter; S20.221A Contusion of right back wall of thorax, initial encounter; S46.911A Strain of unspecified muscle, fascia and tendon at shoulder and upper arm level, right arm, initial encounter; S80.01XA Contusion of right knee, initial encounter; S00.81XA Abrasion of other part of head, initial encounter; I25.10 Atherosclerotic heart disease of native coronary artery without angina pectoris; I10 Essential (primary) hypertension; M19.90 Unspecified osteoarthritis, unspecified site; G20 Parkinson's disease; Z79.02 Long term (current) use of antithrombotics/antiplatelets; Z79.82 Long term (current) use of aspirin; Z79.899 Other long term (current) drug therapy; W01.0XXA Fall on same level from slipping, tripping and stumbling without subsequent striking against object, initial encounter
CPT/HCPCS: 70450; 71101; 72125; 73030; 80048; 85025; 90715; 93005; 96372; 96374; 96375; 99285; A4216; J2405

== ENCOUNTER → 2021-07-15 | Outpatient (CLI) | payer MEDICARE, SELFPAY ==
--- NOTE | 2021-07-15 07:03 | CDU_ITS ---
Reason For Study: Dizziness Rt. Velocities/BP Lt. Velocities/BP Prox CCA 60.4/12.1 cm/sec. Prox CCA 63.1/10.7 cm/sec. Mid CCA 76/18.6 cm/sec. Mid CCA 70.9/16 cm/sec. Dist CCA 70.8/21.3 cm/sec. Dist CCA 50/10.7 cm/sec. Prox ICA 69.5/12.1 cm/sec. Prox ICA 58.6/13.5 cm/sec. Mid ICA 57.8/16 cm/sec. Mid ICA 56.4/16.8 cm/sec. Dist ICA 56.5/20 cm/sec. Dist ICA 50.9/14.6 cm/sec. Rt. ICA/CCA = 0.98. Lt. ICA/CCA = 0.93. Prox ECA 106/10.8 cm/sec. Prox ECA 102.3/11.4 cm/sec. Rt. Vert. 17.3/7.3 cm/sec. Lt. Vert. 50.9/14.6 cm/sec. Right Extracranial There is homogeneous, smooth atherosclerotic plaque noted in the right common carotid artery. There is heterogeneous, irregular atherosclerotic plaque noted in the right internal carotid artery. There is intimal thickening but no significant atherosclerotic plaque noted in the right external carotid artery. Antegrade flow is noted in the right vertebral artery. Left Extracranial There is intimal thickening but no significant atherosclerotic plaque noted in the left common carotid artery. There is heterogeneous, irregular atherosclerotic plaque noted in the left internal carotid artery. There is intimal thickening but no significant atherosclerotic plaque noted in the left external carotid artery. Antegrade flow is noted in the left vertebral artery. Procedure Carotid Duplex 40955. This is a Carotid Duplex examination using B-mode, color flow and specral Doppler. Exam performed in department. VL/Carotid Duplex Ultrasound Interpretation Summary Minimal calcific plaque at the proximal right internal carotid artery with less than 50% stenosis. Less than 50% stenosis right external carotid artery Calcific plaque in the proximal left internal carotid artery with less than 50% stenosis Less than 50% stenosis left external carotid artery Patent antegrade vertebral arteries bilaterally Ordering Physician: Saba Emmanuel Referring Physician: Humphrey Moreau Performed By: Becki England RVT
--- NOTE | 2021-07-15 09:51 | STRESSREP_ITS ---
Stress Test Report Date: 07-15-2021 Procedure: Pharmacologic stress nuclear imaging study Indications: Chest pain; CAD; PCI; Parkinson's disorder Consent: Per the patient Procedure: The patient underwent pharmacologic (Regadenoson 0.4mg ) evaluation with a peak heart rate of 88 beats per minute (63%predicted maximal heart rate) and a peak blood pressure of 158/82 mmHg. The baseline ECG demonstrated normal sinus rhythm. The peak pharmacologic ECG demonstrated no obvious ECG changes. There were no cardiac dysrhythmias pretest, during pharmacologic infusion, or recovery. There was no complaint of chest discomfort during pharmacologic infusion or recovery. The examination was discontinued secondary to completion of protocol. Impression: 1. Pharmacologic (Regadenoson) evaluation 2. Peak pharmacologic ECG with no obvious ECG changes. 3. There were no cardiac dysrhythmias pretest, during pharmacologic infusion, or recovery. 4. Nuclear images pending Myocardial perfusion imaging study: Technique: The patient was injected with 11.5 millicuries of technetium 99m Cardiolite and subsequently rest SPECT Cardiolite nuclear imaging was obtained in the horizontal long, vertical long, and short axis views. The patient underwent pharmacologic (Regadenoson) evaluation with a peak heart rate of 88 beats per minute (63% percent predicted maximal heart rate) and a peak blood pressure of 158/82 mmHg. The patient was injected with 34.2 millicuries of technetium 99m Cardiolite and subsequently stress SPECT Cardiolite nuclear imaging was obtained in the horizontal long, vertical long, and short axis views. A gated Cardiolite study at peak stress was obtained. Interpretation: Rest and stress SPECT Cardiolite nuclear imaging status post realignment, normalization, and attenuation correction demonstrate relative uniform tracer uptake and myocardial perfusion appearing within normal limits. There is end systolic thickening and brightening. The gated Cardiolite study demonstrates myocardial thickening and inward wall motion. The reported LVEF is 55%. Impression: 1. Rest and stress SPECT Cardiolite nuclear imaging demonstrate relative uniform tracer uptake and myocardial perfusion appearing within normal limits. 2. The gated Cardiolite study reports an LVEF of 55%. This note was generated with [employer] software. It may contain incorrect words, spelling, and punctuation that were not noted in checking the note before signing.
== END | disposition home or self-care (01) ==
LOC: CVS 07:01
PROVIDERS: PCP Family Medicine; Referring Provider Nurse Practitioner Gerontology; Visit Provider Nurse Practitioner Gerontology
DX: R07.89 Other chest pain (principal); I25.10 Atherosclerotic heart disease of native coronary artery without angina pectoris; R42 Dizziness and giddiness
CPT/HCPCS: 78452; 93017; 93880; A9500; A4216; J2785

== ENCOUNTER → 2021-10-07 | Outpatient (CLI) | payer MEDICARE, SELFPAY ==
[2021-10-07 15:58] LABS: Absolute Neutrophil Count 3.6 X10^3/uL (2.0-7.7); Basophil# 0.03 X10^3/uL; Basophil% 0.6 % (0-1); Eosinophil# 0.29 X10^3/uL; Eosinophils% 5.6 % (0-5); Hematocrit 39.7 % (40-54); Hemoglobin 12.8 g/dL (13.0-16.5); Lymphocyte % 15.5 % (19-41); Mean Corp Hgb Conc 32.2 g/dL (32-36); Mean Corpuscular Hgb 31.2 pg (27.0-32.0); Mean Corpuscular Volume 96.8 fL (80-94); Mean Platelet Vol. 11.6 fl (6.2-12.0); Monocyte# 0.43 X10^3/uL; Monocyte% 8.3 % (0-10); NRBC Flagged by Analyzer 0 % (0-5); Neutrophil # 3.59 X10^3/uL (2.7-7.7); Neutrophil % 69.8 % (47-70); Platelet Count 167 K/mm3 (150-450); RBC Distribution Width CV 12.4 % (11.6-14.6); RBC Distribution Width SD 43.8 fl (35.1-43.9); White Blood Count 5.2 K/mm3 (4.4-11.0)
[2021-10-07 16:24] LABS: Anion Gap 2 (5-15); BUN 18 mg/dL (7-18); BUN/Creat Ratio 25.5 RATIO (10-20); Calcium,Total 9.4 mg/dL (8.5-10.1); Chloride 104 mmol/L (98-107); Creatinine, Serum 0.71 mg/dL (0.70-1.30); EST Glomerular Filtration Rate 114 mL/min (>60); Est Glom Filt Rate - Afr Amer 138 mL/min (>60); Glucose 109 mg/dL (74-106); Sodium Level 140 mmol/L (136-145)
== END | disposition home or self-care (01) ==
LOC: LAB 14:10
PROVIDERS: PCP Family Medicine; Referring Provider Nurse Practitioner Gerontology; Visit Provider Nurse Practitioner Gerontology
DX: R06.00 Dyspnea, unspecified (principal)
CPT/HCPCS: 36415; 80048; 83880; 85025

== ENCOUNTER → 2021-10-18 | Outpatient (CLI) | payer MEDICARE, SELFPAY ==
--- NOTE | 2021-10-18 09:51 | ECHOCS_ITS ---
Reason For Study: DYSPNEA Procedure This was a 2D Doppler, Color Flow transthoracic echocardiogram. The study was technically difficult. Patient scanned supine. Contrast injection was performed. Exam performed in department. Left Ventricle Based upon the 2D echocardiographic and contrast enhanced images obtained there appears to be grossly normal left ventricular size, wall motion, and systolic function. The estimated ejection fraction is 60 %. Diastolic function is indeterminate. Right Ventricle Normal RV size. Normal systolic function. Atria Normal left atrium. Normal right atrium. No doppler evidence for ASD. Mitral Valve There is no mitral annular calcification. Normal mitral valve. Trivial mitral valve insufficiency. Tricuspid Valve Normal tricuspid valve. Aortic Valve The aortic valve is not well visualized. Pulmonic Valve The pulmonic valve is not well visualized. Great Vessels Normal sized aortic root. Pericardium/Pleural No pericardial effusion. Epicardial fat. Medication 22 gauge I.V. with prn adaptor inserted into left arm. Diluted definity 1.5ml given slow IV push to enhance endocardial definition. MMode/2D Measurements & Calculations LVIDd: 4.9 cm IVSd: 0.94 cm Ao root diam: 3.0 cm LVIDs: 2.8 cm LVPWd: 1.1 cm RVDd: 3.4 cm FS: 43.1 % LAV(MOD-bp): 29.7 ml LVAd ap4: 29.0 cm2 SV(MOD-sp4): 54.3 ml LAV(MOD-bp) Indexed: 16.7 ml/m2 LVLd ap4: 7.7 cm LAV(MOD-sp2): 44.1 ml EDV(MOD-sp4): 90.4 ml LAV(MOD-sp4): 20.1 ml EDV(sp4-el): 92.4 ml LVAs ap4: 17.2 cm2 LVLs ap4: 6.9 cm ESV(MOD-sp4): 36.1 ml ESV(sp4-el): 36.3 ml EF(MOD-sp4): 60.1 % EF(sp4-el): 60.7 % SV(sp4-el): 56.1 ml LA A4 area: 11.0 cm2 LA dimension(2D): 3.6 cm RA A4 area: 19.4 cm2 Time Measurements MV dec time: 0.28 sec Doppler Measurements & Calculations MV E max gerardo: 49.2 cm/sec Lat Peak E' Gerardo: 6.5 cm/sec Med Peak E' Gerardo: 8.0 cm/sec MV A max gerardo: 61.3 cm/sec E/E' lat: 7.6 E/E' med: 6.1 MV E/A: 0.80 MV V2 max: 67.0 cm/sec MV dec slope: 178.6 cm/sec2 Ao V2 max: 139.1 cm/sec MV max P.8 mmHg Ao max P.7 mmHg MV V2 mean: 35.0 cm/sec Ao V2 mean: 93.8 cm/sec MV mean P.58 mmHg Ao mean P.1 mmHg MV V2 VTI: 23.6 cm Ao V2 VTI: 33.0 cm LV V1 max: 78.0 cm/sec LV V1 max P.4 mmHg LV V1 mean P.3 mmHg LV V1 mean: 54.5 cm/sec LV V1 VTI: 19.2 cm ECHO/Echo Complete W/ Contrast Interpretation Summary The study was technically difficult. Contrast injection was performed. Based upon the 2D echocardiographic and contrast enhanced images obtained there appears to be grossly normal left ventricular size, wall motion, and systolic function The estimated ejection fraction is 60 %. Trivial mitral valve insufficiency. Epicardial fat. Diastolic function is indeterminate. Ordering Physician: Saba Emmanuel Referring Physician: Saba Emmanuel Performed By: Raegan Garcia RCS
== END | disposition home or self-care (01) ==
LOC: CVS 09:49
PROVIDERS: PCP Family Medicine; Referring Provider Nurse Practitioner Gerontology; Visit Provider Nurse Practitioner Gerontology
DX: R06.00 Dyspnea, unspecified (principal)
CPT/HCPCS: 93306; Q9957; A4216; C8929

== ENCOUNTER 2021-11-02 13:32 | Emergency (ER) | payer MEDICARE, SELFPAY ==
[2021-11-02 13:33] VITALS: BP 137/69; PULSE 78; RESP 18; TEMP 36.9; O2SAT 98; BMI 24.5
--- NOTE | 2021-11-02 14:52 | CT_ITS ---
STUDY: CT ABDOMEN AND PELVIS WITH CONTRAST ENHANCEMENT OF 1612 HOURS ON 11/02/2021 REASON FOR EXAM: 81-year-old male with abdominal trauma and pain. RADIATION DOSAGE (If Supplied By Facility): CTDIvol = ( 16.06 ) mGy, DLP = ( 773.00 ) mGycm TECHNIQUE: Transaxial images were obtained from the dome of the diaphragm to the symphysis pubis without oral contrast. 100 mL of Isovue-300 was administered intravenously.. Sagittal and coronal images were reconstructed. Individualized dose optimization techniques were used for this CT. COMPARISON: None. FINDINGS: The visualized lung bases are unremarkable. Mild cardiomegaly is noted. No abdominal organ fractures, hemorrhage or hematomas. No retroperitoneal or intraperitoneal hemorrhage or hematomas. Normal liver. Normal gallbladder and extrahepatic biliary system. Normal spleen. Normal pancreas. Normal bilateral adrenal glands. Normal right kidney. Normal left kidney. No obstructive uropathy or pyelonephritis. Normal visualized stomach. Normal small intestine. Mild to moderate constipation. Normal colon. The appendix is visualized and appears normal. Extensively calcified abdominal aorta without dissection or aneurysm.. Normal inferior vena cava. Normal retroperitoneum. Normal bladder without perforation.. No free fluid or free air within the cavity. There is contusion in the subcutaneous tissues of the anterior left lower abdomen. There is no evidence of a focal hematoma. There is also evidence of contusion of the underlying left rectus muscle. No lumbar vertebral body fractures or subluxations. There is marked narrowing of the L1-2, L2-3, and L3-4 intervertebral disc spaces. There is no evidence of pelvic bone or hip fractures. There is no evidence of hip dislocations. Mild demineralization is present. CT/Abdomen/Pelvis W IV Cont ONLY IMPRESSION: 1. Contusion of the subcutaneous tissues of the anterior left lower abdomen and underlying left rectus muscle without evidence of a focal hematoma. 2. No abdominal organ fractures, hemorrhage or hematomas. 3. No retroperitoneal or intraperitoneal hemorrhage or hematomas. 4. No bladder abnormalities. No bladder perforation. 5. Mild to moderate constipation. 6. Extensively calcified abdominal aorta without aneurysmal dilatation or dissection. 7. Mild cardiomegaly. 8. Mild demineralization. Marked narrowing of the L1-2, L2-3, and L3-4 intervertebral disc spaces. No lumbar vertebral body fractures or subluxations. No pelvic bone or hip fractures or dislocations. 9. No evidence of other significant abnormalities. Electronically Signed: Parth Cornell MD at 16:37 EDT ,
--- NOTE | 2021-11-02 14:55 | EDS_ITS ---
HPI HPI - Fall History of Present Illness Chief Complaint: Fall Narrative Narrative: 81-year-old male presenting with abdominal bruising and what he is concerned is a mass on the left lower abdominal wall. He states there is bruising now spreading around to the bilateral lower abdomen and around the back. Patient had mechanical fall on October 25 into a table with his abdomen in the site. Patient is on Plavix. States initially it was painful but is not more painful now than it had been. He initially said that he had some constipation but after getting MiraLAX he has had bowel movements. He does not have any hematuria or dysuria. He is eating and drinking normally. He has not had a fever. He states he feels a little weak. He is not lightheaded or dizzy. He states initially after being constipated for couple of days been getting MiraLAX he had a bowel movement there was some blood mixed in the first but has not seen any blood in his stool since then. 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 Dyspnea on exertion Essential hypertension Hairy cell leukemia, in remission Idiopathic Parkinson's disease Osteoarthritis Reactive airways dysfunction syndrome Vitamin B-complex deficiency Home Medications citalopram 20 mg tablet 20 mg PO DAILY mental health 10/16/19 [History Last Taken 11/15/19] polyethylene glycol 3350 17 gram/dose oral powder (Miralax) 17 g PO DAILY PRN Constipation 10/16/19 [History Last Taken Unknown] aspirin 81 mg chewable tablet 81 mg PO DAILY@0800 11/16/19 [Rx Last Taken 11/21/19] amantadine HCl 100 mg capsule 100 mg PO BID parkinsons 08/03/20 [History Last Taken Unknown] loratadine 10 mg tablet 10 mg PO DAILY PRN other 08/03/20 [History Last Taken Unknown] cholecalciferol (vitamin D3) 100 mcg (4,000 unit) capsule 100 mcg PO DAILY 11/16/20 [History Last Taken Unknown] acetaminophen 500 mg tablet (Tylenol Extra Strength) 500 mg PO Q6H PRN 12/07/20 [History Last Taken Unknown] carbidopa 25 mg-levodopa 100 mg tablet 1.5 tab PO TID 12/07/20 [History Last Taken Unknown] atorvastatin 40 mg tablet 40 mg PO QHS #90 tabs 10/07/21 [Rx Last Taken Unknown] clopidogrel 75 mg tablet 75 mg PO DAILY #90 tabs 10/07/21 [Rx Last Taken Unkno wn] metoprolol tartrate 25 mg tablet 25 mg PO BID #180 tabs 10/07/21 [Rx Last Taken Unknown] Allergy/AdvReac Type Severity Reaction Status Date / Time levofloxacin [From Levaquin] Allergy Intermediate Rash Verified 11/02/21 13:36 Penicillins Allergy Intermediate rash Verified 11/02/21 13:36 Quinolones Allergy Rash Verified 11/02/21 13:36 Family History Mother Cancer Urinary Brother Cancer throat Sister Diabetes Heart disease Open heart surgery, unsure if due to CAD or valve Sister Diabetes Sister Diabetes Surgical History History of arthroscopic knee surgery History of coronary artery stent placement (11/21/19) History of tonsillectomy Presence of coronary angioplasty implant and graft (~11/21/19) Social History Smoking Status: Never smoker alcohol intake: never substance use type: does not use caffeine: Yes Type: carbonated beverages ROS ROS ED Constitutional Constitutional ED: Denies chills or fever(s) Eyes Eyes: Denies change in vision or diplopia ENT ENT ED: Denies rhinorrhea or sore throat Cardiovascular Cardiovascular: Denies chest pain or palpitations Respiratory/Chest Respiratory/Chest: Denies cough or dyspnea Gastrointestinal Gastrointestinal: Reports abdominal pain and constipation; Denies nausea or vomiting Genitourinary Genitourinary ED: Reports dysuria and hematuria Musculoskeletal Musculoskeletal: Reports arthralgias and back pain Integumentary Reports other Details: Bruising around the abdomen Neurologic Neurologic: Denies headache(s) or paresthesias EXAM Physical Exam Const Vital Signs: 11/02/21 13:33 11/02/21 14:45 Temperature 98.5 F Temperature Source Temporal Pulse Rate 78 Respiratory Rate 18 Respiratory Effort Normal Non-Labored Blood Pressure 137/69 H Blood Pressure Mean 91 Pulse Ox 98 Oxygen Delivery Method Room Air Positive well nourished General Appearance ED: NAD HEENT Reports normocephalic atraumatic Eyes PERRL General Eye ED: Negative for pale conjunctiva or scleral icterus Chest Wall inspection of chest normal and palpation of chest normal Resp normal respiratory effort Auscultation: Negative for rales, rhonchi or wheezes Cardio regular rate and regular rhythm GI GI Narrative: No rebound or guarding. Inspection: Negative for abdominal distention Back/Spine no CVA tenderness Neuro oriented x3 and CN's II-XII intact bilaterally Sensorium / Orientation: alert Motor Exam: strength 5/5 throughout Psych mental status grossly normal and thought process normal Skin Skin Narrative: There is roughly an 8 x 5 cm area of firmness on the left lower abdominal wall. It is not fluctuant. It does not feel to be a hernia. There is dependent bruising from this area across the abdomen to the right side and the left side extending into the flank. Patient has bruising noted to the left posterior upper arm. MDM MDM MDM Narrative Medical decision making narrative: 81-year-old male presenting for evaluation of an abdominal wall bruise which is seem to spread to the flanks. He also has some bruising of the left arm which is nontender to palpation he has no bony tenderness here. He has full range of motion of the left arm. He is not even experiencing significant pain from the fall and injury to his abdomen. He declines analgesia. He states the pain has not changed for the worse and is actually better. Initially had some constipati on which is resolving. He is now having bowel movements after MiraLAX. Blood work is obtained and his CBC shows no leukocytosis. His hemoglobin is stable at 12.1. Platelets are normal at 168. Renal function electrolytes are normal. Total bilirubin is elevated at 1.10 which is nonspecific. Urinalysis is negative slight aspect of renal injury. CT of the ab pelvis with IV contrast does not show any significant hematoma of the abdomen. Does not show any bladder or renal injury. It does not show any bowel injury. Does comment on some constipation which the patient already knows of. Given his ultimately normal work-up I think he safe for discharge home. He is to use MiraLAX for constipation. I suspect that the bruising will heal over time. Patient's rhythm was counseled at length for this. Patient stable discharge. Impression: 1. Mechanical fall 2. Left arm contusion 3. Traumatic ecchymosis of abdominal wall 4. Generalized weakness Lab Data Attestation: I reviewed the patient's lab results. Labs: Laboratory Results - last 24 hr 11/02/21 11/02/21 11/02/21 15:20 15:20 15:40 WBC 6.4 RBC 3.82 L Hgb 12.1 L Hct 36.7 L MCV 96.1 H MCH 31.7 MCHC 33.0 RDW Std Deviation 45.1 H RDW Coeff of Syeda 12.9 Plt Count 168 MPV 11.2 Immature Gran % (Auto) 0.300 Neut % (Auto) 67.4 Lymph % (Auto) 16.9 L [place] % (Auto) 8.7 Eos % (Auto) 6.2 H Baso % (Auto) 0.5 Absolute Neuts (auto) 4.3 Absolute Lymphs (auto) 1.09 Nucleated RBC % 0 Sodium 139 Potassium 4.2 Chloride 106 Carbon Dioxide 31.0 Anion Gap 2 L BUN 14 Creatinine 0.65 L Estim Creat Clear Calc 52.28 Est GFR (MDRD) Af Amer 153 Est GFR (MDRD) Non-Af 126 BUN/Creatinine Ratio 21.7 H Glucose 96 Calcium 9.0 Total Bilirubin 1.10 H AST 14 L ALT 10 L Alkaline Phosphatase 90 Total Protein 6.6 Albumin 3.4 Globulin 3.2 Albumin/Globulin Ratio 1.1 Urine Color Yellow Urine Clarity Clear Urine pH 7.0 Ur Specific [place] 1.010 Urine Protein 15 H Urine Glucose (UA) Normal Urine Ketones Negative Urine Occult Blood Negative Urine Nitrite Negative Urine Bilirubin Negative Urine Urobilinogen Normal Ur Leukocyte Esterase Negative Urine RBC 0 SEEN Urine WBC 0 SEEN Ur Squamous Epith Cells 0 SEEN Urine Bacteria RARE Urine Mucus 0 SEEN Radiography Diagnostic Testing: Clinical Impression(s) from Imaging Studies Abdomen/Pelvis CT 11/02/21 14:52 IMPRESSION: 1. Contusion of the subcutaneous tissues of the anterior left lower abdomen and underlying left rectus muscle without evidence of a focal hematoma. 2. No abdominal organ fractures, hemorrhage or hematomas. 3. No retroperitoneal or intraperitoneal hemorrhage or hematomas. 4. No bladder abnormalities. No bladder perforation. 5. Mild to moderate constipation. 6. Extensively calcified abdominal aorta without aneurysmal dilatation or dissection. 7. Mild cardiomegaly. 8. Mild demineralization. Marked narrowing of the L1-2, L2-3, and L3-4 intervertebral disc spaces. No lumbar vertebral body fractures or subluxations. No pelvic bone or hip fractures or dislocations. 9. No evidence of other significant abnormalities. Electronically Signed: Parth Cornell MD at 16:37 EDT , Discharge Plan Triage Chief Complaint: Fall ED Provider: Joseph Harrell Dx/Rx/DC Orders Clinical Impression: Traumatic ecchymosis of abdominal wall Instructions: ED Constipation (Adult), ED Soft Tissue Contusion Prescriptions: No Action citalopram 20 mg tablet 20 mg PO DAILY amantadine HCl 100 mg capsule 100 mg PO BID polyethylene glycol 3350 [Miralax] 17 gram/dose powder 17 g PO DAILY PRN (Reason: Constipation) loratadine 10 mg tablet 10 mg PO DAILY PRN (Reason: other) carbidopa-levodopa 25-100 mg tablet 1.5 tab PO TID acetaminophen [Tylenol Extra Strength] 500 mg tablet 500 mg PO Q6H PRN metoprolol tartrate 25 mg tablet 25 mg PO BID Qty: 180 3RF atorvastatin 40 mg tablet 40 mg PO QHS Qty: 90 3RF clopidogrel 75 mg tablet 75 mg PO DAILY Qty: 90 3RF aspirin 81 MG tablet,chewable 81 mg PO DAILY@0800 0RF Vitamin D3 100 mcg (4,000 unit) Capsule 100 mcg PO DAILY Primary Care Provider: Humphrey Moreau Referrals: Humphrey Moreau MD [Primary Care Provider] - Disposition Disposition: Home, Self Care
[2021-11-02 15:32] LABS: Hematocrit 36.7 % (40-54); Hemoglobin 12.1 g/dL (13.0-16.5); Lymphocyte % 16.9 % (19-41); Mean Corpuscular Hgb 31.7 pg (27.0-32.0); Mean Corpuscular Volume 96.1 fL (80-94); Mean Platelet Vol. 11.2 fl (6.2-12.0); Neutrophil % 67.4 % (47-70); Platelet Count 168 K/mm3 (150-450); RBC Distribution Width CV 12.9 % (11.6-14.6); RBC Distribution Width SD 45.1 fl (35.1-43.9); Red Blood Count 3.82 M/mm3 (4.6-6.2); White Blood Count 6.4 K/mm3 (4.4-11.0)
[2021-11-02 15:33] LABS: Absolute Lymphocyte Count 1.09 X10^3/uL (0.83-4.51); Absolute Neutrophil Count 4.3 X10^3/uL (2.0-7.7); Basophil# 0.03 X10^3/uL; Basophil% 0.5 % (0-1); Eosinophils% 6.2 % (0-5); Lymphocyte # 1.09 X10^3/ul (0.83-4.51); Monocyte# 0.56 X10^3/uL; Monocyte% 8.7 % (0-10); NRBC Flagged by Analyzer 0 % (0-5); Neutrophil # 4.34 X10^3/uL (2.7-7.7)
[2021-11-02 15:44] LABS: ALB/GLOB Ratio 1.1 RATIO (0.9-2.4); AST(SGOT) 14 U/L (15-37); Alanine Aminotransfer ALT/SGPT 10 U/L (16-61); Albumin, Serum 3.4 g/dL (3.2-5.0); Alkaline Phosphatase 90 U/L (45-117); Anion Gap 2 (5-15); BUN 14 mg/dL (7-18); BUN/Creat Ratio 21.7 RATIO (10-20); Chloride 106 mmol/L (98-107); Creatinine, Serum 0.65 mg/dL (0.70-1.30); EST Glomerular Filtration Rate 126 mL/min (>60); Est Glom Filt Rate - Afr Amer 153 mL/min (>60); Estimated Creatinine Clearance 52.28 ml/min; Globulin 3.2 g/dL (2.2-4.2); Glucose 96 mg/dL (74-106); Potassium 4.2 mmol/L (3.5-5.1); Protein, Total 6.6 g/dL (6.4-8.2); Sodium Level 139 mmol/L (136-145)
[2021-11-02 15:48] LABS: Mucous, Urine 0 SEEN /hpf (<or=2+); Red Blood Cells-Urine 0 SEEN /hpf (0-5); Squamous Epithelial Cells - UA 0 SEEN /hpf (0-5); White Blood Cells 0 SEEN /hpf (0-5)
[2021-11-02 15:51] LABS: Color, Urine Yellow (Yellow); Glucose, Dipstick Normal (Normal); Ketone-Dipstick Negative (Negative); Leukocyte Esterase-Dipstick Negative /ul (Negative); Nitrite-Dipstick Negative (Negative); Occult Blood-Urine Negative /ul (Negative); Protein-Dipstick 15 mg/dl (Negative); Urine Bilirubin Dipstick Negative (Negative); Urine Clarity Clear (Clear); Urine Urobilinogen Normal (Normal)
[2021-11-02 16:14] LABS: Bacteria RARE /hpf (None Seen)
[2021-11-02 17:20] VITALS: RESP 18
== END 2021-11-02 17:21 | disposition home or self-care (01) ==
PROVIDERS: Emergency Provider Student in an Organized Health Care Education/Training Program; PCP Family Medicine; Visit Provider Student in an Organized Health Care Education/Training Program
DX: S30.1XXA Contusion of abdominal wall, initial encounter (principal); S40.022A Contusion of left upper arm, initial encounter; I10 Essential (primary) hypertension; I25.10 Atherosclerotic heart disease of native coronary artery without angina pectoris; M19.90 Unspecified osteoarthritis, unspecified site; W19.XXXA Unspecified fall, initial encounter; Z79.82 Long term (current) use of aspirin; Z79.899 Other long term (current) drug therapy
CPT/HCPCS: 74177; 80053; 81001; 85025; 99283; Q9967; A4216

== ENCOUNTER → 2022-04-07 | Outpatient (CLI) | payer MEDICARE, SELFPAY ==
[2022-04-07 15:54] LABS: Absolute Lymphocyte Count 0.83 X10^3/uL (0.83-4.51); Absolute Neutrophil Count 3.9 X10^3/uL (2.0-7.7); Basophil# 0.03 X10^3/uL; Basophil% 0.5 % (0-1); Eosinophil# 0.27 X10^3/uL; Eosinophils% 4.9 % (0-5); Hematocrit 40.6 % (40-54); Hemoglobin 13.4 g/dL (13.0-16.5); Lymphocyte # 0.83 X10^3/ul (0.83-4.51); Lymphocyte % 15.1 % (19-41); Mean Corpuscular Hgb 32.1 pg (27.0-32.0); Mean Corpuscular Volume 97.1 fL (80-94); Mean Platelet Vol. 10.8 fl (6.2-12.0); Monocyte# 0.51 X10^3/uL; Monocyte% 9.3 % (0-10); NRBC Flagged by Analyzer 0 % (0-5); Neutrophil # 3.86 X10^3/uL (2.7-7.7); Platelet Count 179 K/mm3 (150-450); RBC Distribution Width CV 12.7 % (11.6-14.6); RBC Distribution Width SD 45.7 fl (35.1-43.9); Red Blood Count 4.18 M/mm3 (4.6-6.2); White Blood Count 5.5 K/mm3 (4.4-11.0)
[2022-04-07 16:33] LABS: Anion Gap 4 (5-15); BUN 16 mg/dL (7-18); BUN/Creat Ratio 24.9 RATIO (10-20); Calcium,Total 9.2 mg/dL (8.5-10.1); Chloride 109 mmol/L (98-107); Creatinine, Serum 0.64 mg/dL (0.70-1.30); EST Glomerular Filtration Rate 127 mL/min (>60); Est Glom Filt Rate - Afr Amer 154 mL/min (>60); Glucose 104 mg/dL (74-106); Sodium Level 141 mmol/L (136-145)
[2022-04-07 16:49] LABS: BNP,B-Type NATRIURETIC PEPTIDE 25.8 pg/mL (0-100)
== END | disposition home or self-care (01) ==
LOC: LAB 15:30
PROVIDERS: PCP Family Medicine; Visit Provider Nurse Practitioner Gerontology
DX: R06.00 Dyspnea, unspecified (principal)
CPT/HCPCS: 36415; 80048; 83880; 85025

== ENCOUNTER 2022-08-16 18:35 | Observation (INO) | payer MEDICARE, SELFPAY ==
[2022-08-16 18:36] VITALS: BP 124/63; PULSE 65; RESP 18; TEMP 36.4; O2SAT 96
[2022-08-16 19:02] VITALS: BP 124/71; PULSE 64; RESP 26; BMI 24.2
--- NOTE | 2022-08-16 19:14 | EKG12_ITS ---
Test Reason : DYSRHYTHMIA Blood Pressure : / mmHG Vent. Rate : 065 BPM Atrial Rate : 065 BPM P-R Int : 146 ms QRS Dur : 082 ms QT Int : 420 ms P-R-T Axes : 036 -08 013 degrees QTc Int : 436 ms Normal sinus rhythm Low voltage QRS Nonspecific T wave abnormality Abnormal ECG Confirmed by DEIRDRE BOBBY, BHUPENDRA ([id number]), editor continuity and script STEPHEN LORA ([id number]) on 08/18/2022 8:56:08 AM Referred By: PL Confirmed By:BHUPENDRA GILMORE MD
--- NOTE | 2022-08-16 19:14 | CT_ITS ---
INDICATION: Trauma EXAMINATION: CT BRAIN - CT Head or Brain W/O Contrast Injection TECHNIQUE: Multiple axial images were obtained of the head without intravenous contrast. A radiation dose optimization technique was used for this scan. IV Contrast dosage and agent: None. RADIATION DOSAGE (If Supplied By Facility): CTDIvol = ( 44.99 ) mGy, DLP = ( 779.24 ) mGycm COMPARISON: 11/16/2020 FINDINGS: BRAIN PARENCHYMA: No intra- or extra-axial hemorrhage. No evidence of acute infarct. No intracranial mass or mass effect. There is preservation of the fitzpatrick/white matter interface. Posterior fossa structures are unremarkable. CSF SPACES: Ex vacuo ventricular dilation is proportionate to global cerebral volume loss. Basal cisterns are patent. CALVARIUM, SKULL BASE, PARANASAL SINUSES AND MASTOID AIR CELLS: Clear. No discrete lytic or blastic abnormalities. ORBITS: Both globes, extraocular muscles, optic nerves and retrobulbar fat appear unremarkable. ASPECTS Score for Acute Strokes: 10 CT/Brain/Head without Contrast IMPRESSION: No acute abnormal intracranial finding. Electronically Signed: Du Aj MD at 20:08 EDT ,
--- NOTE | 2022-08-16 19:16 | EDS_ITS ---
HPI History of Present Illness Chief Complaint: Weakness Informant: patient and family Narrative Narrative: History is from patient and son/family. This patient's was diagnosed with COVID about a week and a half ago to 2 weeks ago. He was diagnosed about 4 days ago. He has had generalized weakness. Not really coughing much. He has had some congestion. But he has not been drinking as much. It does not sound like he is truly nauseated. But he states when water hits the back of his throat it makes him cough or gag and he is just not drinking much. He normally drinks Pedialyte. He drank 12 ounces today and that is more than he drank in the last 2 days. He has generalized weakness. They states he slipped getting out of a chair yesterday. He was not standing. He slipped and kind of fell on his left buttock. Its not really hurting. No indication that he hit his head. But they also state that he is a little bit more confused than normal. He normally uses a walker and walks in a heel-to-toe pattern because of his Parkinson's. But they states he is forgetting to do that. He will respond to questions and actions but is taking him about 6 to 10 seconds which is not normal. There is no focal weakness. They are primarily concerned that he is dehydrated and just too weak to walk around the house safely. [facility] Medical History Atherosclerosis of coronary artery of [place] heart without angina pectoris Dyspnea on exertion Essential hypertension Hairy cell leukemia, in remission Idiopathic Parkinson's disease Osteoarthritis Reactive airways dysfunction syndrome Vitamin B-complex deficiency Home Medications citalopram 20 mg tablet 20 mg PO DAILY mental health 10/16/19 [History Last Taken 11/15/19] polyethylene glycol 3350 17 gram/dose oral powder (Miralax) 17 g PO DAILY PRN Constipation 10/16/19 [History Last Taken Unknown] aspirin 81 mg chewable tablet 81 mg PO DAILY@0800 11/16/19 [Rx Last Taken 11/21/19] amantadine HCl 100 mg capsule 100 mg PO BID parkinsons 08/03/20 [History Last Taken Unknown] loratadine 10 mg tablet 10 mg PO DAILY PRN other 08/03/20 [History Last Taken Unknown] cholecalciferol (vitamin D3) 100 mcg (4,000 unit) capsule 100 mcg PO DAILY 11/16/20 [History Last Taken Unknown] acetaminophen 500 mg tablet (Tylenol Extra Strength) 500 mg PO Q6H PRN 12/07/20 [History Last Taken Unknown] carbidopa 25 mg-levodopa 100 mg tablet 1.5 tab PO TID 12/07/20 [History Last Taken Unknown] atorvastatin 40 mg tablet 40 mg PO QHS #90 tabs 10/07/21 [Rx Last Taken Unknown] clopidogrel 75 mg tablet 75 mg PO DAILY #90 tabs 10/07/21 [Rx Last Taken Unknown] metoprolol tartrate 25 mg tablet 25 mg PO BID #180 tabs 10/07/21 [Rx Last Taken Unknown] Allergy/AdvReac Type Severity Reaction Status Date / Time levofloxacin [From Levaquin] Allergy Intermediate Rash Verified 08/16/22 18:38 Penicillins Allergy Intermediate rash Verified 08/16/22 18:38 Quinolones Allergy Rash Verified 08/16/22 18:38 Family History Mother Cancer Urinary Brother Cancer throat Sister Diabetes Heart disease Open heart surgery, unsure if due to CAD or valve Sister Diabetes Sister Diabetes Surgical History History of arthroscopic knee surgery History of coronary artery stent placement (11/21/19) History of tonsillectomy Presence of coronary angioplasty implant and graft (~11/21/19) Social History Smoking Status: Never smoker alcohol intake: never substance use type: does not use caffeine: Yes Type: carbonated beverages ROS ROS ED Constitutional Constitutional ED: Denies chills or fever(s) Eyes Eyes: Denies change in vision ENT ENT ED: Reports sore throat; Denies rhinorrhea Cardiovascular Cardiovascular: Denies chest pain Respiratory/Chest Respiratory/Chest: Reports cough and other Details: Patient has a rare cough. This is mostly when he is trying to drink fluids. No dyspnea Gastrointestinal Gastrointestinal: Reports other Details: Possible nausea versus just not hungry. ; Denies abdominal pain, diarrhea or vomiting Genitourinary Genitourinary ED: Denies dysuria or hematuria Musculoskeletal Musculoskeletal: Reports myalgias Integumentary Denies rash Neurologic Neurologic: Reports other Details: See history of present illness. ; Denies headache(s) Endocrine Endocrinology: Denies polydipsia or polyuria Hematologic/Lymphatic Hematologic/Lymphatic: Denies anemia Allergic/Immunologic Allergic/Immunologic ED: Denies urticaria EXAM Physical Exam Narrative Exam Narrative: CONSTITUTIONAL: Patient is nontoxic in appearance. But he does look tired. He has obvious Parkinson's. HEENT: No notable trauma. Mucous membranes do appear rather dry. But mucous membranes are not red. EYES: No conjunctival injection. No proptosis. NECK:No JVD. No stridor. CARDIOVASCULAR: Regular rate. Regular rhythm. No notable murmur. No JVD. RESPIRATORY: No respiratory distress. Breathing is unlabored. No wheezes. No rhonchi. No rales. No pain with a deep breath. No chest wall tenderness. Overall his lungs sound good. Oxygen saturation is normal at 96% on room air showing no hypoxia. GASTROINTESTINAL: Not distended. Bowel sounds are normal. No tenderness. No guarding. No rebound. No palpable mass. No bruit is heard. GENITOURINARY: No tenderness over the bladder. No CVA tenderness. MUSCULOSKELETAL: Atraumatic. Positive mild bilateral peripheral edema but evidently this is normal. NEUROLOGICAL: Patient is alert and appropriate. He has obvious tremor of Parkinson's. He is very slow to answer. Speech is a little bit difficult and slurred but evidently this is not uncommon. SKIN: No noted rashes. No diaphoresis. PSYCHIATRIC: Patient is calm. Mood is appropriate. Const Vital Signs: 08/16/22 18:36 08/16/22 19:02 08/16/22 19:06 Temperature 97.5 F L Temperature Source Temporal Pulse Rate 65 64 Respiratory Rate 18 26 H Respiratory Effort Normal Blood Pressure 124/63 H 124/71 H Blood Pressure Mean 83 88 Pulse Ox 96 Oxygen Delivery Method Room Air 08/16/22 21:00 Temperature Temperature Source Pulse Rate 73 Respiratory Rate 18 Respiratory Effort Blood Pressure 170/78 H Blood Pressure Mean 108 Pulse Ox 97 Oxygen Delivery Method Room Air MDM MDM MDM Narrative Medical decision making narrative: Patient CBC shows low white count 2.7 which is not uncommon with COVID. Minimally low hemoglobin but not low enough to cause his symptoms. Platelets were minimally low but no sign of bleeding. Electrolytes showed no acute abnormality. He did have a high BUN to creatinine ratio but his creatinine was overall preserved. He did improve somewhat with IV fluids per the son. Patient's liver function test showed no acute process. My independent interpretation of the patient's AP chest x-ray shows no acute process and final reading is similar. My independent interpretation is CT of the head without contrast shows no bleeding. There is generalized atrophy as would be expected. Radiology is reading shows no acute abnormal intracranial finding. Patient's son felt that his dad was a little bit sharper with IV fluids but sti ll not anywhere near his baseline. We tried to get him up to go to bedside commode but this patient was very weak. There is no way he could do this independently. His son is very concerned about him going home. He has fallen twice in the last couple days although he has not hurt himself. This is abnormal. His who normally helps him at home is also weak herself because of COVID. They do not feel would be safe for him to go home. Considering his age, history of heart disease, being on Plavix, already having Parkinson's, and now acutely having COVID I think it is unsafe for him to go home. Lab Data Attestation: I reviewed the patient's lab results. Labs: Laboratory Results - last 24 hr 08/16/22 08/16/22 19:37 19:37 WBC 2.7 L RBC 3.74 L Hgb 11.9 L Hct 35.9 L MCV 96.0 H MCH 31.8 MCHC 33.1 RDW Std Deviation 47.8 H RDW Coeff of Syeda 13.4 Plt Count 115 L MPV 10.6 Immature Gran % (Auto) 0.400 Neut % (Auto) 62.0 Lymph % (Auto) 18.0 L [place] % (Auto) 18.8 H Eos % (Auto) 0.4 Baso % (Auto) 0.4 Absolute Neuts (auto) 1.7 L Absolute Lymphs (auto) 0.49 L Nucleated RBC % 0 Differential Comment SCANNED Diff Path Review May foll Sodium 136 Potassium 3.5 Chloride 101 Carbon Dioxide 29.0 Anion Gap 6 BUN 16 Creatinine 0.55 L Estim Creat Clear Calc 51.39 Est GFR (MDRD) Af Amer 182 Est GFR (MDRD) Non-Af 151 BUN/Creatinine Ratio 28.9 H Glucose 96 Calcium 8.9 Total Bilirubin 0.70 AST 25 ALT 11 L Alkaline Phosphatase 83 Total Protein 6.3 L Albumin 3.2 Globulin 3.1 Albumin/Globulin Ratio 1.0 Radiography Diagnostic Testing: Clinical Impression(s) from Imaging Studies Brain CT 08/16/22 19:14 IMPRESSION: No acute abnormal intracranial finding. Electronically Signed: Du Aj MD at 20:08 EDT , Chest X-Ray 08/16/22 19:41 IMPRESSION: No radiographic evidence of acute cardiopulmonary disease. Electronically Signed: Du Aj MD at 20:09 EDT , EKG Initial EKG: Comments: My independent interpretation the patient's EKG done for generalized weakness and history of coronary artery disease shows normal sinus rhythm. Overall rate is 65. No ventricular ectopy. Nonspecific ST changes but no sign of infarct or ischemia. CT interval, QRS duration and QTc normal Management Discussion w/another healthcare provider: Hospitalist Discharge Plan Triage Chief Complaint: Weakness ED Provider: Jovan Pascual Dx/Rx/DC Orders Clinical Impression: COVID-19, Generalized muscle weakness, Multiple falls, History of Parkinson's disease, History of CAD (coronary artery disease) Prescriptions: No Action citalopram 20 mg tablet 20 mg PO DAILY amantadine HCl 100 mg capsule 100 mg PO BID polyethylene glycol 3350 [Miralax] 17 gram/dose powder 17 g PO DAILY PRN (Reason: Constipation) loratadine 10 mg tablet 10 mg PO DAILY PRN (Reason: other) carbidopa-levodopa 25-100 mg tablet 1.5 tab PO TID acetaminophen [Tylenol Extra Strength] 500 mg tablet 500 mg PO Q6H PRN metoprolol tartrate 25 mg tablet 25 mg PO BID Qty: 180 3RF atorvastatin 40 mg tablet 40 mg PO QHS Qty: 90 3RF clopidogrel 75 mg tablet 75 mg PO DAILY Qty: 90 3RF aspirin 81 MG tablet,chewable 81 mg PO DAILY@0800 0RF Vitamin D3 100 mcg (4,000 unit) Capsule 100 mcg PO DAILY Primary Care Provider: Humphrey Moreau Referrals: Humphrey Moreau MD [Primary Care Provider] - Disposition Disposition: Acute Care Hospital [facility]
[2022-08-16] MEDS: Ondansetron 4 MG/2 ML Vial IV (19:36)
[2022-08-16] MEDS: 0.9% Normal Saline 1,000 ML 1000 ML IV (19:36)
[2022-08-16 19:38] VITALS: RESP 27; O2SAT 95
--- NOTE | 2022-08-16 19:41 | RAD_ITS ---
INDICATION: Cough, covid EXAMINATION/TECHNIQUE: X-RAY - XR Chest 1 View COMPARISON: 11/16/2020 FINDINGS: LUNGS: No consolidation, edema or effusion. No pneumothorax. MEDIASTINUM AND CARDIOVASCULAR STRUCTURES: Cardiac silhouette not enlarged. Central airways and mediastinal contour are unremarkable. RAD/Chest 1 View (Portable) IMPRESSION: No radiographic evidence of acute cardiopulmonary disease. Electronically Signed: Du Aj MD at 20:09 EDT ,
[2022-08-16 19:44] LABS: Absolute Lymphocyte Count 0.49 X10^3/uL (0.83-4.51); Absolute Neutrophil Count 1.7 X10^3/uL (2.0-7.7); Basophil# 0.01 X10^3/uL; Basophil% 0.4 % (0-1); Eosinophil# 0.01 X10^3/uL; Eosinophils% 0.4 % (0-5); Hematocrit 35.9 % (40-54); Hemoglobin 11.9 g/dL (13.0-16.5); Lymphocyte # 0.49 X10^3/ul (0.83-4.51); Mean Corp Hgb Conc 33.1 g/dL (32-36); Mean Corpuscular Hgb 31.8 pg (27.0-32.0); Mean Platelet Vol. 10.6 fl (6.2-12.0); Monocyte# 0.51 X10^3/uL; Monocyte% 18.8 % (0-10); NRBC Flagged by Analyzer 0 % (0-5); Neutrophil # 1.69 X10^3/uL (2.7-7.7); POSITIVE DIFFERENTIAL YES; Platelet Count 115 K/mm3 (150-450); RBC Distribution Width CV 13.4 % (11.6-14.6); RBC Distribution Width SD 47.8 fl (35.1-43.9); Red Blood Count 3.74 M/mm3 (4.6-6.2); White Blood Count 2.7 K/mm3 (4.4-11.0)
[2022-08-16 19:47] LABS: Differential Indicated SCAN CRITERIA MET
[2022-08-16 20:02] LABS: AST(SGOT) 25 U/L (15-37); Alanine Aminotransfer ALT/SGPT 11 U/L (16-61); Albumin, Serum 3.2 g/dL (3.2-5.0); Alkaline Phosphatase 83 U/L (45-117); Anion Gap 6 (5-15); BUN 16 mg/dL (7-18); BUN/Creat Ratio 28.9 RATIO (10-20); Calcium,Total 8.9 mg/dL (8.5-10.1); Chloride 101 mmol/L (98-107); Creatinine, Serum 0.55 mg/dL (0.70-1.30); EST Glomerular Filtration Rate 151 mL/min (>60); Est Glom Filt Rate - Afr Amer 182 mL/min (>60); Estimated Creatinine Clearance 51.39 ml/min; Globulin 3.1 g/dL (2.2-4.2); Glucose 96 mg/dL (74-106); Potassium 3.5 mmol/L (3.5-5.1); Protein, Total 6.3 g/dL (6.4-8.2); Sodium Level 136 mmol/L (136-145)
[2022-08-16 20:47] LABS: Differential Comment SCANNED
[2022-08-16 21:00] VITALS: BP 170/78; PULSE 73; RESP 18; O2SAT 97
--- NOTE | 2022-08-16 22:49 | PCM.HP.STD ---
HPI - General General Date of Admission: 08/16/22 Date of Service: 08/16/22 Chief Complaint: Weakness HPI Narrative SEAN GILMORE, is a 82 M with a significant history of Parkinson disease who presents to the emergency department with weakness for the past 2 to 3 days. Reportedly patient's is recovering from COVID in the past 1-1/2 weeks. For about the past 2 days patient has had weakness and has had increased in his baseline Parkinson's symptoms of shuffling. Reportedly he has fallen for about 2 times. With one of his falls he landed on his right side and developed right shoulder pain. Reportedly patient had diarrhea but diarrhea has resolved. Family think that the patient's might be dehydrated. Per family, patient's will not be able to help patient at home since she () has COVID. Per family patient has had some brain fogginess. [facility] Medical History Atherosclerosis of coronary artery of [place] heart without angina pectoris Dyspnea on exertion Essential hypertension Hairy cell leukemia, in remission Idiopathic Parkinson's disease Osteoarthritis Reactive airways dysfunction syndrome Vitamin B-complex deficiency Home Medications citalopram 20 mg tablet 20 mg PO DAILY mental health 10/16/19 [History Last Taken 11/15/19] polyethylene glycol 3350 17 gram/dose oral powder (Miralax) 17 g PO DAILY PRN Constipation 10/16/19 [History Last Taken Unknown] aspirin 81 mg chewable tablet 81 mg PO DAILY@0800 11/16/19 [Rx Last Taken 11/21/19] amantadine HCl 100 mg capsule 100 mg PO BID parkinsons 08/03/20 [History Last Taken Unknown] loratadine 10 mg tablet 10 mg PO DAILY PRN other 08/03/20 [History Last Taken Unknown] cholecalciferol (vitamin D3) 100 mcg (4,000 unit) capsule 100 mcg PO DAILY 11/16/20 [History Last Taken Unknown] acetaminophen 500 mg tablet (Tylenol Extra Strength) 500 mg PO Q6H PRN 12/07/20 [History Last Taken Unknown] carbidopa 25 mg-levodopa 100 mg tablet 1.5 tab PO TID 12/07/20 [History Last Taken Unknown] atorvastatin 40 mg tablet 40 mg PO QHS #90 tabs 10/07/21 [Rx Last Taken Unknown] clopidogrel 75 mg tablet 75 mg PO DAILY #90 tabs 10/07/21 [Rx Last Taken Unknown] metoprolol tartrate 25 mg tablet 25 mg PO BID #180 tabs 10/07/21 [Rx Last Taken Unknown] Allergy/AdvReac Type Severity Reaction Status Date / Time levofloxacin [From Levaquin] Allergy Intermediate Rash Verified 08/16/22 18:38 Penicillins Allergy Intermediate rash Verified 08/16/22 18:38 Quinolones Allergy Rash Verified 08/16/22 18:38 Family History Mother Cancer Urinary Brother Cancer throat Sister Diabetes Heart disease Open heart surgery, unsure if due to CAD or valve Sister Diabetes Sister Diabetes Surgical History History of arthroscopic knee surgery History of coronary artery stent placement (11/21/19) History of tonsillectomy Presence of coronary angioplasty implant and graft (~11/21/19) Social History Smoking Status: Never smoker alcohol intake: never substance use type: does not use caffeine: Yes Type: carbonated beverages ROS ROS Narrative Pertinent positives and pertinent negatives as noted in HPI. All other systems were reviewed and are negative Vital Signs Vital Signs Vital Signs: 08/16/22 18:36 08/16/22 19:02 08/16/22 19:06 Temperature 97.5 F L Temperature Source Temporal Pulse Rate 65 64 Respiratory Rate 18 26 H Respiratory Effort Normal Blood Pressure 124/63 H 124/71 H Blood Pressure Mean 83 88 Pulse Ox 96 Oxygen Delivery Method Room Air 08/16/22 21:00 Temperature Temperature Source Pulse Rate 73 Respiratory Rate 18 Respiratory Effort Blood Pressure 170/78 H Blood Pressure Mean 108 Pulse Ox 97 Oxygen Delivery Method Room Air Weight Weight: 68.039 kg Body Mass Index (BMI) 24.2 Physical Exam Narrative Physical exam: General: Well-nourished, well-developed. Head: Normocephalic, atraumatic, no tenderness Eyes: Vision is grossly intact. EOMI ENT, no trauma, moist mucous membranes, no rhinorrhea Neck: Nontender, No thyromegaly. CVS: Regular rate and rhythm. S1-S2 present. No murmur, gallop or rub. Respiratory : clear to auscultation bilaterally, chest wall nontender Abdomen: Soft, nontender, nondistended, normal bowel sounds, no masses : Deferred Back: Nontender, no CVA tenderness, no midline spinal tenderness, deformities, step-offs Extremities: Nontender full range of motion, no trauma Skin: Normal color, no trauma, abrasions Neuro: Alert, oriented, cranial nerves II through XII grossly intact. Psychiatry: Normal mood. Normal affect. Not depressed. Not anxious. Results Lab / Micro Data Result Diagrams: 08/16/22 19:37 08/16/22 19:37 Labs: Laboratory Results - last 24 hr 08/16/22 19:37: WBC 2.7 L, RBC 3.74 L, Hgb 11.9 L, Hct 35.9 L, MCV 96.0 H, MCH 31.8, MCHC 33.1, RDW Std Deviation 47.8 H, RDW Coeff of Syeda 13.4, Plt Count 115 L, MPV 10.6, Immature Gran % (Auto) 0.400, Neut % (Auto) 62.0, Lymph % (Auto) 18.0 L, [place] % (Auto) 18.8 H, Eos % (Auto) 0.4, Baso % (Auto) 0.4, Absolute Neuts (auto) 1.7 L, Absolute Lymphs (auto) 0.49 L, Nucleated RBC % 0, Differential Comment SCANNED, Diff Path Review July08/16/22 19:37: Sodium 136, Potassium 3.5, Chloride 101, Carbon Dioxide 29.0, Anion Gap 6, BUN 16, Creatinine 0.55 L, Estim Creat Clear Calc 51.39, Est GFR (MDRD) Af Amer 182, Est GFR (MDRD) Non-Af 151, BUN/Creatinine Ratio 28.9 H, Glucose 96, Calcium 8.9, Total Bilirubin 0.70, AST 25, ALT 11 L, Alkaline Phosphatase 83, Total Protein 6.3 L, Albumin 3.2, Globulin 3.1, Albumin/Globulin Ratio 1.[address] 08/16/22 19:14 IMPRESSION: No acute abnormal intracranial finding. Electronically Signed: Du Aj MD at 20:08 EDT , Chest X-Ray 08/16/22 19:41 IMPRESSION: No radiographic evidence of acute cardiopulmonary disease. Electronically Signed: Du Aj MD at 20:09 EDT , Assessment & Plan Assessment/Plan (1) Generalized muscle weakness: (2) Multiple falls: (3) COVID-19: PLAN: Plan Generalized muscle weakness/fall Chest x-ray was independently interpreted and I agree with radiologist interpretation of no acute cardiopulmonary pathology. CT brain is non acute. Likely secondary to COVID-19 infection. PT and OT to work with patient. Case management consult. COVID-19 infection Reported tested positive for COVID-19 a day before presentation. Put on droplet precautions. CBC on presentation showed white count of 2.7; with lymphocytosis and monocytosis. At baseline white blood cell count is normal. Mild thrombocytopenia with a platelet count of 115. Trend CBC. Parkinson's disease Likely contributing to falls. Home Parkinson meds and continued. PT OT as above. CKD stage II Stable Trend BMP. Gentle IV hydration as patient is at risk of dehydration. DVT prophylaxis Subcutaneous Lovenox ordered. Charges/Coding Visit Charges Inpatient E&M: 87480 Init Hosp L2
[2022-08-16 23:25] VITALS: BP 165/104; PULSE 78; RESP 22; TEMP 36.6; O2SAT 97
[2022-08-17] VITALS (14 sets, daily range): BP systolic 121–163; BP diastolic 57–78; PULSE 62–71; RESP 16–24; TEMP 36.7–37.6; O2SAT 94–98; BMI 24.3
[2022-08-17 06:17] LABS: Absolute Lymphocyte Count 0.45 X10^3/uL (0.83-4.51); Absolute Neutrophil Count 1.6 X10^3/uL (2.0-7.7); Basophil# 0.01 X10^3/uL; Basophil% 0.4 % (0-1); Eosinophil# 0.02 X10^3/uL; Eosinophils% 0.8 % (0-5); Hematocrit 35.4 % (40-54); Hemoglobin 11.9 g/dL (13.0-16.5); Lymphocyte # 0.45 X10^3/ul (0.83-4.51); Lymphocyte % 18.8 % (19-41); Mean Corp Hgb Conc 33.6 g/dL (32-36); Mean Corpuscular Hgb 32.2 pg (27.0-32.0); Mean Corpuscular Volume 95.7 fL (80-94); Mean Platelet Vol. 11.3 fl (6.2-12.0); Monocyte# 0.32 X10^3/uL; Monocyte% 13.3 % (0-10); NRBC Flagged by Analyzer 0 % (0-5); Neutrophil % 66.7 % (47-70); POSITIVE DIFFERENTIAL YES; Platelet Count 125 K/mm3 (150-450); RBC Distribution Width CV 13.2 % (11.6-14.6); RBC Distribution Width SD 47.2 fl (35.1-43.9); White Blood Count 2.4 K/mm3 (4.4-11.0)
[2022-08-17 06:25] LABS: Differential Indicated SCAN CRITERIA MET
[2022-08-17 06:35] LABS: Differential Comment SCANNED
[2022-08-17 07:05] LABS: Anion Gap 6 (5-15); BUN 12 mg/dL (7-18); BUN/Creat Ratio 22.9 RATIO (10-20); Calcium,Total 8.3 mg/dL (8.5-10.1); Chloride 105 mmol/L (98-107); Creatinine, Serum 0.52 mg/dL (0.70-1.30); EST Glomerular Filtration Rate 160 mL/min (>60); Est Glom Filt Rate - Afr Amer 194 mL/min (>60); Estimated Creatinine Clearance 51.39 ml/min; Glucose 96 mg/dL (74-106); Potassium 3.4 mmol/L (3.5-5.1); Sodium Level 139 mmol/L (136-145)
--- NOTE | 2022-08-17 07:49 | PN.HOSP_ITS ---
Reason for Visit Reason for Visit: Weakness Subjective Subjective Mr. Aguiar is an 82-year-old white male who presented to the emergency department at [facility] on 08/16/2022 with a chief complaint of generalized weakness that have been ongoing for the past 2 to 3 days. It was reported that his is recovering from COVID-19 for the past week to week and a half for about the 2 last 2 days the patient has had weakness and increased from his baseline Parkinson's symptoms. He has had about 2 falls with no severe injury however he is complaining of some right shoulder pain. He had diarrhea but this is since resolved. Per the family his is unable to care for him at home since she has been recovering from COVID and the patient has been suffering from some brain fogginess as well. Vital signs at presentation were unremarkable. CBC showed a leukopenia and chronic stable anemia as well as a mild thrombocytopenia. His chemistry panel was overall unremarkable with normal renal function normal electrolytes, and normal liver function. He is on room air. Patient did have a positive COVID test about 4 days prior to presentation so repeat testing was not done here. He has not had much of a cough but has had some congestion. Patient is complaining of some thick mucus which he is trying to clear. We will go ahead and Mucinex for this. He is not coughing particularly much. Overall his biggest complaint is generalized weakness and pain from his fall. Objective Data Objective Data Vital Signs: Vital Signs Temp Pulse Resp BP Pulse Ox O2 Del Method 98.5 F 71 18 147/70 H 94 Room Air 08/17/22 03:48 08/17/22 03:48 08/17/22 03:48 08/17/22 03:48 08/17/22 03:48 08/17/22 03:48 Oxygen Delivery Method Room Air Weight: 68.3 kg Body Mass Index (BMI) 24.3 Intake & Output: Intake and Output for Last 24 Hours 08/15/22 08/16/22 08/17/22 23:59 23:59 23:59 Intake Total 1000 / 1000 Output Total 500 / 500 Balance 1000 / 1000 -500 / -500 Lab / Micro Data Result Diagrams: 08/17/22 05:30 08/17/22 05:30 Labs: Laboratory Results - last 24 hr 08/16/22 19:37: WBC 2.7 L, RBC 3.74 L, Hgb 11.9 L, Hct 35.9 L, MCV 96.0 H, MCH 31.8, MCHC 33.1, RDW Std Deviation 47.8 H, RDW Coeff of [place]eda 13.4, Plt Count 115 L, MPV 10.6, Immature Gran % (Auto) 0.400, Neut % (Auto) 62.0, Lymph % (Auto) 18.0 L, [place] % (Auto) 18.8 H, Eos % (Auto) 0.4, Baso % (Auto) 0.4, Absolute Neuts (auto) 1.7 L, Absolute Lymphs (auto) 0.49 L, Nucleated RBC % 0, Differential Comment SCANNED, Diff Path Review July08/16/22 19:37: Sodium 136, Potassium 3.5, Chloride 101, Carbon Dioxide 29.0, Anion Gap 6, BUN 16, Creatinine 0.55 L, Estim Creat Clear Calc 51.39, Est GFR (MDRD) Af Amer 182, Est GFR (MDRD) Non-Af 151, BUN/Creatinine Ratio 28.9 H, Glucose 96, Calcium 8.9, Total Bilirubin 0.70, AST 25, ALT 11 L, Alkaline Phosphatase 83, Total Protein 6.3 L, Albumin 3.2, Globulin 3.1, Albumin/Globulin Ratio 1.0 08/17/22 05:30: WBC 2.4 L, RBC 3.70 L, Hgb 11.9 L, Hct 35.4 L, MCV 95.7 H, MCH 32.2 H, MCHC 33.6, RDW Std Deviation 47.2 H, RDW Coeff of [place]eda 13.2, Plt Count 125 L, MPV 11.3, Immature Gran % (Auto) 0.000, Neut % (Auto) 66.7, Lymph % (Auto) 18.8 L, [place] % (Auto) 13.3 H, Eos % (Auto) 0.8, Baso % (Auto) 0.4, Absol polly Neuts (auto) 1.6 L, Absolute Lymphs (auto) 0.45 L, Nucleated RBC % 0, Differential Comment SCANNED, Diff Path Review July [facility] 08/17/22 05:30: Sodium 139, Potassium 3.4 L, Chloride 105, Carbon Dioxide 28.0, Anion Gap 6, BUN 12, Creatinine 0.52 L, Estim Creat Clear Calc 51.39, Est GFR (MDRD) Af Amer 194, Est GFR (MDRD) Non-Af 160, BUN/Creatinine Ratio 22.9 H, Glucose 96, Calcium 8.3 L Radiography Diagnostic Testing: Radiology Impression Brain CT 08/16/22 19:14 IMPRESSION: No acute abnormal intracranial finding. Electronically Signed: Du Aj MD at 20:08 EDT Reading Location ID and State: [facility] / [place] Tel , Service support , Chest X-Ray 08/16/22 19:41 IMPRESSION: No radiographic evidence of acute cardiopulmonary disease. Electronically Signed: Du Aj MD at 20:09 EDT , Physical Exam Const alert, oriented x3, no apparent distress and average body habitus Constitutional Narrative: Elderly white male, sitting up in bed, significant masked facies and bradykinesia, nontoxic, nursing at bedside, appears comfortable HEENT head/scalp atraumatic and moist oral mucous membranes HEENT Narrative: Mallampati 2, dentition is fair, no thrush Head and Scalp: normocephalic Resp normal respiratory effort, no retractions, no use of accessory muscles and clear to auscultation bilaterally Auscultation: Negative for rales, rhonchi or wheezes Cardio regular rate, regular rhythm, S1 normal heart sound, S2 normal heart sound, no murmurs, no rub, no gallops and no clicks GI normal to inspection, nondistended, normoactive bowel sounds, soft to palpation and non-tender Extremity no clubbing, cyanosis or edema Extremity Narrative: 2+ pedal pulses Neuro oriented x3, moves all extremities and no focal motor deficits Neuro Narrative: Bradykinesia noted, resting tremor noted, speech is slow and deliberate but intelligible and clear, generalized weakness Psych affect normal Psych Narrative: Very pleasant, affect is flat however suspect this is related to his baseline Parkinson's disease Assessment & Plan Assessment/Plan (1) COVID-19: (2) Generalized muscle weakness: (3) Multiple falls: (4) Hypokalemia: PLAN: Plan Acute COVID-19 infection -From a respiratory standpoint it seems he is fairly asymptomatic -Symptoms seem to be predominantly generalized weakness, decreased appetite, and some brain fogginess -Continue supportive care -Add I-S and Acapella -Add Mucinex to thin secretions -As an outpatient patient would have qualified for Paxlovid -Patient was diagnosed 5 days ago--> 08/12/2022 Generalized weakness due to acute COVID-19 infection -PT/OT consultation -Need placement at discharge-consult immigration case worker/social work Hypokalemia -P.o. potassium replacement At risk for malnutrition -Encourage p.o. intake -Supplements added Pancytopenia -Leukopenia and thrombocytopenia are likely related to acute COVID-19 infection -Anemia is chronic and stable -Repeat CBC in a.m. to monitor trends History of Parkinson's -Continue amantadine -Continue carbidopa levodopa -PT/OT consultation CAD/HTN/HPL -PCI of the RCA followed by staged PCI of the circumflex--> 2019 -moderate stenosis in the LAD which is being treated medically -Continue Plavix -Continue metoprolol 25 mg p.o. twice daily -Continue atorvastatin 40 mg at at bedtime -continue aspirin Vitamin D deficiency -Continue home vitamin D supplementation Seasonal allergies -Continue loratadine Constipation -Continue polyethylene glycol as needed History of hairy cell leukemia -In remission Osteoarthritis -Continue Tylenol as ordered DVT prophylaxis -Enoxaparin 30 twice daily CODE STATUS -DNR CCA Charges/Coding Visit Charges Inpatient E&M: 93944 Subs Hosp L2
[2022-08-17] MEDS: Aspirin 81 MG TAB.CHEW PO (10:07)
[2022-08-17] MEDS: Potassium Chloride Oral Soln 20 MEQ/15 ML UDC 40 MEQ PO (10:07)
[2022-08-17] MEDS: Citalopram 20 MG Tablet PO (10:08)
[2022-08-17] MEDS: Cholecalciferol (VIT D3) 25 MCG TABLET (1,000 UNITS) 100 MCG PO (10:08)
[2022-08-17] MEDS: Enoxaparin 30 MG/0.3 ML Syringe SC ×2 (10:09→21:26)
[2022-08-17] MEDS: Amantadine 100 MG Capsule PO ×2 (10:09→21:28)
[2022-08-17] MEDS: Metoprolol Tartrate 25 MG Tablet PO ×2 (10:09→21:27)
[2022-08-17] MEDS: Clopidogrel Bisulfate 75 MG Tablet PO (10:09)
[2022-08-17] MEDS: Ensure Plus High Protein 120 ML LIQUID PO ×4 (10:35→21:28)
[2022-08-17 11:54] LABS: Pathologist Review Reviewed
[2022-08-17 11:54] LABS: Pathologist Review Reviewed
--- NOTE | 2022-08-17 13:18 | CASEMGMT ---
Per RN patient is not alert and oriented. LUBA called patient's son Camilo. LUBA introduced self and role at [facility]. LUBA asked if family was thinking patient needs to go to a [place] [facility] for rehab. Camilo said that won't go over well with patient. Camilo said they had someone come out to the home before so that is what they are leaning towards. LUBA told Camilo we can see how he does with therapy and see what they recommend. Camilo was in agreement with this. Jayashree FLANNERY
[2022-08-17] MEDS: guaiFENesin 1,200 MG Tablet 1200 MG PO ×2 (13:49→21:27)
[2022-08-17] MEDS: Acetaminophen 500 MG Tablet 1000 MG PO ×2 (13:49→21:27)
[2022-08-17] MEDS: Carbidopa/Levodopa 25/100 Tablet PO ×2 (15:03→21:27)
--- NOTE | 2022-08-17 15:44 | CASEMGMT ---
Therapy is recommending patient go somewhere for rehab. SW met with patient. Introduced self and role at [facility]. SW attempted to discuss d/c plans with patient, but he did not understand. Per admission questions patient had concerns with transportation and food. SW asked patient about transportation issues or food and patient denied any issues. SW will also check with patient's to make sure there are no needs. SW attempted to call patient's a couple of times with no luck. SW will attempt to reach her again to discuss d/c plan. Jayashree Dubois OIL PROCESSING TECHNICIAN [employer]
[2022-08-17] MEDS: Atorvastatin Calcium 40 MG Tablet PO (21:27)
[2022-08-18] VITALS (7 sets, daily range): BP systolic 125–152; BP diastolic 68–70; PULSE 64–89; RESP 16–18; TEMP 36.5–37; O2SAT 93–98
[2022-08-18] MEDS: Acetaminophen 500 MG Tablet 1000 MG PO ×3 (06:15→21:32)
[2022-08-18] MEDS: Carbidopa/Levodopa 25/100 Tablet PO ×3 (06:15→21:31)
[2022-08-18] MEDS: Ensure Plus High Protein 120 ML LIQUID PO ×2 (10:00→16:08)
[2022-08-18] MEDS: Enoxaparin 30 MG/0.3 ML Syringe SC ×2 (10:23→21:32)
[2022-08-18] MEDS: guaiFENesin 1,200 MG Tablet 1200 MG PO ×2 (10:24→21:32)
[2022-08-18] MEDS: Aspirin 81 MG TAB.CHEW PO (10:24)
[2022-08-18] MEDS: Metoprolol Tartrate 25 MG Tablet PO ×2 (10:24→21:35)
[2022-08-18] MEDS: Citalopram 20 MG Tablet PO (10:24)
[2022-08-18] MEDS: Cholecalciferol (VIT D3) 25 MCG TABLET (1,000 UNITS) 100 MCG PO (10:24)
[2022-08-18] MEDS: Amantadine 100 MG Capsule PO ×2 (10:25→21:31)
[2022-08-18] MEDS: Clopidogrel Bisulfate 75 MG Tablet PO (10:25)
--- NOTE | 2022-08-18 10:40 | CASEMGMT ---
CHRISTIANO GLEASON called to complete KEENAN form as patient is confused at time. RN VICTORINO explained KEENAN form to , voiced understanding. gave telephone consent and placed in patient's chart. Copy provided to mer. CHRISTIANO GLEASON encouraged to talk to SW while on phone regarding discharge planning.
--- NOTE | 2022-08-18 11:19 | CASEMGMT ---
SW spoke with patient's , Kellen. SW introduced self and role at [facility]. RN VICTORINO let Kellen know that therapy is recommending senior living facility for rehab. SW went over the 3 facilities that are in network and SW knows are taking COVID patients. [facility], [facility], and [facility]. Kellen said she has an appt at 11 and will be in to talk with patient about it. Jayashree Dubois GENERAL MANAGER LAND [employer]PARTMENT [employer]
--- NOTE | 2022-08-18 12:10 | SP.MBSS_ITS ---
Modified Barium Swallow - Patient Information Study Date: 08/18/22 Study Time: 12:30 Direct Billable Minutes: 87 Total Minutes procedure & reportin Diagnosis: COVID 19 (U07.1), Hx of PD (Z86.69) Referring Physician: Katty Renteria Reason for Referral: Objectively assess swallow function, risk for aspiration, and determine recommendations for least restrictive diet textures and compensatory strategies to improve safety of swallow. Medical History: Gonzales is a 82 M with a significant history of Parkinson disease , HTN, reactive airway disease (SEE H&P for full PMH) who presented to [facility] ED 08/16/2022 with increased weakness for the past 2 to 3 days. Reportedly patient's is recovering from COVID in the past 1-1/2 weeks. Reportedly he has fallen for about 2 times. With one of his falls he landed on his right side and developed right shoulder pain. Associated with symptoms has been brain fogginess. Pt referred for dysphagia evaluation for difficulty swallowing pills. BSE 08/17/2022 recommended soft and bite size textures / thin liquids with direct supervision and feeding assistance. MBSS recommended to further assess aspiration risk given history of silent aspiration, diagnosis of PD, and most recent study having been ~5 years ago. Pt and agreeable to recommendations. Today, COMMERCIAL PROPERTY ADMINISTRATOR and RN both mentioned that meals went poorly and the patient was unable to swallow soft solids at his meal. History of oropharyngeal dysphagia with silent aspiration of thin liquids. Most recent MBSS 09/19/2027 - Diet Texture Recommendations: Will recommend a mechanical soft textured, nectar thickened liquid diet. Compensatory Strategy Recommendations: Reduced bolus volume, reduced rate of intake, seated upright at 90 degrees during PO intake, remain upright for 30-60 minutes post meal (GERD precaution), medications with purees. Per , he completed follow up outpatient therapy. He discontinued use of thickener at home eventually. Current Diet Ordered: Soft and bite size textures / Thin liquids Mental Status: Impaired - difficulty recalling recent information, such as how meals today went Respiratory Status: Oxygenating on Room Air - Penetration-Aspiration Scale Penetration-Aspiration Scale: OBJECTIVE ASSESSMENT OF SWALLOW FUNCTION (QUANTITATIVE ? PER TRIAL): PENETRATION / ASPIRATION SCALE (CARLOS): 1 = does not enter airway 2 = enters airway/above vocal folds/ejected 3 = enters airway/above vocal folds/not ejected 4 = enters airway/contacts vocal folds/ejected 5 = enters airway/contacts vocal folds/not ejected 6 = enters airway/below vocal folds/ejected 7 = enters airway/below vocal folds/not ejected despite effort 8 = enters airway/below vocal folds/no effort VIDEOFLOROSCOPIC SCALE SCORE (CARLOS): Grade I = aspiration of material that has penetrated into the laryngeal ve stibule, intact cough reflex Grade II = aspiration < 10 % of the bolus, intact cough reflex Grade III = aspiration of < 10 % of the bolus, reduced cough reflex or aspiration of > 10 % of the bolus, intact cough reflex Grade IV = aspiration of > 10 % of the bolus, reduced cough reflex - Penetration-Aspiration Scale Score Thin Liquid via teaspoon Result: 4= enters airway/contacts vocal folds/ejected Thin Liquid via small single sip from cup Result: 1= does not enter airway [place] Thick Liquid via small single sip from cup Result: 1= does not enter airway - trace post prandial penetration of previous trial; however, it fully ejected from the laryngeal vestibule during this trial and the following trial Pudding via teaspoon with esophageal screen Result: 1= does not enter airway 1/4 Cookie Result: 1= does not enter airway - <10% of the bolus was swallowed and the rest was removed from oral cavity via toothette swab Thin Liquid via sequential sips from straw Result: 5= enters airways/contacts vocal folds/not ejected Thin Liquid via small single sip from cup Trial 2 Result: 2= enter airway/above vocal folds/ejected - Oral Phase Labial Seal: Interlabial escape, no progression to anterior lip Tongue Control During Bolus Hold: Posterior escape of greater than half of bolus - thin liquid Bolus Preparation/Mastication: Slow prolonged chewing/mashing with complete recollection Bolus Transport/Lingual Motion: Repetitive/disorganized tongue motion Oral Residue: Minimal to no clearance - <10% of 1/4 cookie cleared from the oral cavity during the swallow, remaining oral residues had to be cleared from oral cavity with toothette swab - Pharyngeal Phase Initiation of Pharyngeal Swallow: Bolus head in pyriforms Soft Palate Elevation: Trace column of contrast/air between soft palate and pharyngeal wall Laryngeal Elevation: Partial superior movement thyroid cart/partial apprx aryt- epig petiole Anterior Hyoid Excursion: Partial anterior movement Epiglottic Movement: Partial inversion - inconsistent Laryngeal Vestibule Closure at Height of Swallow: Incomplete; narrow column of air/contrast in laryngeal vestibule Pharyngeal Stripping Wave: Present - diminished Pharyngoesophageal Segment Opening: Parital distension and partial duration; parital obstruction of flow Tongue Base Retraction: Wide column of contrast between tongue base & post. pha ryngeal wall Pharyngeal Residue: Collection of residue within or on pharyngeal structures - Esophageal Phase Esophageal Clearance: Esophageal retention - mild pudding retention in mid esophagus - Diagnosis/Impression Diagnosis: Severe oral dysphagia (R13.11), Mild-mod pharyngeal dysphagia (R13.13 ) Impression: The oral phase is primarily marked by... -Decreased bolus control with >1/2 of the bolus spilling posteriorly to the pyriforms prior to swallow onset observed with some trials of thin liquids. -Lingual pumping observed with A-P transport. -1/4 of July [place] cookie required prolonged mastication. When bite was mashed, patient was only able to swallow <10% of the bolus due to deficits in patient's abilities for A-P transport. DIETETIC TECHNICIAN cleared a majority of the bite with a toothette swab from the patient's oral cavity (residues were primarily anterior to his te eth, on tongue surface, and on palate). The pharyngeal phase is primarily marked by... -Mild-moderately delayed swallow onset. -Mildly decreased airway closure during the swallow due to mildly decreased anterior hyoid excursion, inconsistent epiglottic inversion, and mildly decreased laryngeal elevation. -Mild-moderately decreased tongue base retraction and UES opening/duration with resulting trace-mild pharyngeal residues after the swallow. -Deep laryngeal penetration of thin liquids via tsp and straw to the vocal folds. Tsp sip fully ejected from the laryngeal vestibule, but sips by straw did not - placing the patient at increased risk for aspiration. Of note, there was no cough response to laryngeal penetration to the vocal folds. - Recommendations Diet: Puree Textures, Thin Liquids Compensatory Strategies: Small Bites, Small Sips, No Straws, Slow Rate - bites/sips one at a time, Alternate bites/solids and sips/liquids, Sitting upright, Remain sitting upright for 30 minutes after PO intake Supervision: 1:1 Close Supervision - Feeding assistance Recommend Repeat Modified Barium Swallow: TBD Need for Skilled Speech Therapy Services: Yes Comment: Will recommend the patient for HH dysphagia therapy upon discharge to address deficits in swallow function. Will recommend the patient for oral motor and oropharyngeal strengthening to improve lingual/labial strength/ROM/coordination, as well as hyolaryngeal elevation/excursion and tongue base retraction. The patient would benefit from thorough education regarding diet recommendations and recommended compensatory strategies. Education Completed: 1. Described result of evaluation., 2. Pt understands evaluation & agrees with goals and treatment plan., 4. Family/caregivers understand evaluation & agree w/ goals & tx plan., 7. Pt requires further education on strategies & risks. - Status Active ST Patient: Active - Contact Information [facility] Speech Therapy:: Keri Ramsey M.A. [facility]-DIETETIC TECHNICIAN Speech-Language Pathologist [facility] [address] [place] [address] [email or web address] [phone] 08/18/22 12:31
--- NOTE | 2022-08-18 13:44 | CASEMGMT ---
LUBA spoke with therapy. Therapy said if patient has someone who can provide hands on assistance while patient walks then patient would be okay for home with home health. Patient's Kellen arrived at [facility] to talk with LUBA. LUBA explained what therapy told LUBA. Kellen said she is with patient 17/10 and can provide hands on assistance as therapy recommended. Kellen did express interest in home health. SW will get her a list and she will need to pick a few places and LUBA inspector line CM will work on referrals. LUBA returned patient's son Camilo's phone call. LUBA explained to Camilo therapy's recommendation yesterday and today. LUBA explained patient's was okay with patient going home with home health. LUBA let Camilo know RN VICTORINO or LUBA will work on setting up home health. LUBA will let him know about discharge. Jayashree FLANNERY
--- NOTE | 2022-08-18 14:09 | CASEMGMT ---
[place] printed list of SNF facilities from [facility].
--- NOTE | 2022-08-18 14:42 | CASEMGMT ---
SW provided patient with a list of longterm providers including quality and resource use data and consistent with patient?s preferred geographic region, medical needs, and insurance network were provided from the [employer] Guide. Patient's looked at the list and picked [facility] as that is 18 miles from their home. LUBA let her know SW will work on referral. LUBA sent a referral to [facility] via [facility]. LUBA notified physician of change in plans and patient will be discharged tomorrow. LUBA called patient's son Camilo and let him know discharge will be tomorrow around noon. Jayashree Dubois HABITAT MANAGEMENT COORDINATOR PRUDENCIO
--- NOTE | 2022-08-18 15:25 | PCM.PN.HOSP ---
Reason for Visit Reason for Visit: Weakness Subjective Subjective No issue overnight. Therapy services recommending skilled however does not want him to go to a skilled nursing and would like to take him home with home health. We are working on setting them up with this and patient will likely be able to be discharged tomorrow to home with ongoing home health. Objective Data Objective Data Vital Signs: Vital Signs Temp Pulse Resp BP Pulse Ox O2 Del Method 97.9 F 64 16 150/70 H 93 Room Air 08/18/22 10:21 08/18/22 10:24 08/18/22 10:21 08/18/22 10:24 08/18/22 10:21 08/18/22 10:21 Oxygen Delivery Method Room Air Weight: 68.3 kg Body Mass Index (BMI) 24.3 Intake & Output: Intake and Output for Last 24 Hours 08/16/22 08/17/22 08/18/22 23:59 23:59 23:59 Intake Total 1000 / 1000 780 / 780 410 / 410 Output Total 1100 / 1100 700 / 700 Balance 1000 / 1000 -320 / -320 -290 / -290 Medical Nutrition Assessment Dietitian: Malnutrition Criteria Met Start: 08/17/22 14:05 Freq: Status: Active Protocol: Document 08/17/22 14:05 (Rec: 08/17/22 14:05 [id number]) Nutrition Malnutrition Evidence of Malnutrition Exists Yes Malnutrition (severe): Acute Illness/Injury Evidenced By Suboptimal Energy Intake ( Severe),Weight Loss (Severe) Clinical Problem Acute Disease or Injury Related Malnutrition Etiology severe, acute malnutrition related to inadequate energy intake d/t acute COVID illness Signs/Symptoms as evidenced by reported unintentional 7.4#/5% wt loss, estimated PO intake meeting < 50% of estimated energy needs > 5 days Status Active Problem Recommendation Dietitian Recommendations/Changes regular diet given evidence of malnutrition- texture/ consistency modifications as indicated per SHELL MOLD BONDER; continue ensure plus high protein 120mL 4x/day w/ medpass for additional nutrition if consumed. Lab / Micro Data Result Diagrams: 08/17/22 05:30 08/17/22 05:30 Labs: Laboratory Results - last 24 hr 08/17/22 16:12: COVID-19 (KELSIE) Detected Physical Exam Const alert, oriented x3, no apparent distress and average body habitus Constitutional Narrative: Elderly white male, sitting up in bed, significant masked facies and bradykinesia, nontoxic, appears comfortable HEENT head/scalp atraumatic and moist oral mucous membranes HEENT Narrative: Dentures in place, Mallampati is 2-3, no thrush Head and Scalp: normocephalic Resp normal respiratory effort, no retractions, no use of accessory muscles and clear to auscultation bilaterally Auscultation: Negative for rales, rhonchi or wheezes Cardio regular rate, regular rhythm, S1 normal heart sound, S2 normal heart sound, no murmurs, no rub, no gallops and no clicks GI normal to inspection, nondistended, normoactive bowel sounds, soft to palpation and non-tender Extremity no clubbing, cyanosis or edema Extremity Narrative: 2+ pedal pulses Neuro oriented x3, moves all extremities and no focal motor deficits Neuro Narrative: Bradykinesia noted, resting tremor noted, speech is slow and deliberate but intelligible and clear, generalized weakness Psych affect normal Psych Narrative: Very pleasant, affect is flat however suspect this is related to his baseline Parkinson's disease Assessment & Plan Assessment/Plan (1) COVID-19: (2) Generalized muscle weakness: (3) Multiple falls: (4) Hypokalemia: PLAN: Plan Acute COVID-19 infection -From a respiratory standpoint it seems he is fairly asymptomatic -Symptoms seem to be predominantly generalized weakness, decreased appetite, and some brain fogginess -Continue supportive care -Add I-S and Acapella -Add Mucinex to thin secretions -As an [facility] but now past 5 days so will not recommend discharge with this -Patient was diagnosed 6 days ago--> 08/12/2022 -COVID PCR here is positive Generalized weakness due to acute COVID-19 infection -PT/OT following -Case management has been following with the patient and plan is for discharge home with home health as family does not want him placed in a skilled facility despite OT/PT recommendations Hypokalemia -P.o. potassium replacement -Stanley BMP in a.m. At risk for malnutrition -Encourage p.o. intake -Supplements added Pancytopenia -Leukopenia and thrombocytopenia are likely related to acute COVID-19 infection -Anemia is chronic and stable -Repeat CBC in a.m. to monitor trends History of Parkinson's -Continue amantadine -Continue carbidopa levodopa -PT/OT consultation CAD/HTN/HPL -PCI of the RCA followed by staged PCI of the circumflex--> 2019 -moderate stenosis in the LAD which is being treated medically -Continue Plavix -Continue metoprolol 25 mg p.o. twice daily -Continue atorvastatin 40 mg at at bedtime -continue aspirin Vitamin D deficiency -Continue home vitamin D supplementation Seasonal allergies -Continue loratadine Constipation -Continue polyethylene glycol as needed History of hairy cell leukemia -In remission Osteoarthritis -Continue Tylenol as ordered DVT prophylaxis -Enoxaparin 30 twice daily CODE STATUS -DNR CCA Charges/Coding Visit Charges Inpatient E&M: 24769 Subs Hosp L2
--- NOTE | 2022-08-18 15:27 | CASEMGMT ---
[facility] accepted patient with start of care at the beginning of next week. LUBA notified patient's and patient. Plan: d/c home with [facility], PT, OT, and ST. Jayashree FLANNERY
[2022-08-18] MEDS: Atorvastatin Calcium 40 MG Tablet PO (21:32)
[2022-08-19] VITALS (7 sets, daily range): BP systolic 130–135; BP diastolic 57–62; PULSE 65–69; RESP 18; TEMP 36.4–36.7; O2SAT 93–97
[2022-08-19] MEDS: Carbidopa/Levodopa 25/100 Tablet PO (06:01)
[2022-08-19] MEDS: Acetaminophen 500 MG Tablet 1000 MG PO (06:02)
[2022-08-19 06:59] LABS: Absolute Lymphocyte Count 0.57 X10^3/uL (0.83-4.51); Absolute Neutrophil Count 1.9 X10^3/uL (2.0-7.7); Basophil# 0.01 X10^3/uL; Basophil% 0.3 % (0-1); Eosinophil# 0.21 X10^3/uL; Eosinophils% 6.9 % (0-5); Hematocrit 40.1 % (40-54); Hemoglobin 13.3 g/dL (13.0-16.5); Lymphocyte # 0.57 X10^3/ul (0.83-4.51); Lymphocyte % 18.7 % (19-41); Mean Corp Hgb Conc 33.2 g/dL (32-36); Mean Corpuscular Hgb 31.6 pg (27.0-32.0); Mean Corpuscular Volume 95.2 fL (80-94); Mean Platelet Vol. 10.6 fl (6.2-12.0); Monocyte# 0.33 X10^3/uL; Monocyte% 10.8 % (0-10); NRBC Flagged by Analyzer 0 % (0-5); Neutrophil # 1.92 X10^3/uL (2.7-7.7); POSITIVE DIFFERENTIAL YES; Platelet Count 128 K/mm3 (150-450); RBC Distribution Width CV 13.4 % (11.6-14.6); RBC Distribution Width SD 47.2 fl (35.1-43.9); Red Blood Count 4.21 M/mm3 (4.6-6.2); White Blood Count 3.1 K/mm3 (4.4-11.0)
[2022-08-19 07:08] LABS: Differential Indicated SCAN CRITERIA MET
[2022-08-19 07:17] LABS: ALB/GLOB Ratio 0.9 RATIO (0.9-2.4); AST(SGOT) 22 U/L (15-37); Alanine Aminotransfer ALT/SGPT 10 U/L (16-61); Albumin, Serum 3.2 g/dL (3.2-5.0); Alkaline Phosphatase 99 U/L (45-117); Anion Gap 5 (5-15); BUN 13 mg/dL (7-18); BUN/Creat Ratio 21.3 RATIO (10-20); Calcium,Total 9.2 mg/dL (8.5-10.1); Chloride 106 mmol/L (98-107); Creatinine, Serum 0.61 mg/dL (0.70-1.30); Differential Comment SCANNED; EST Glomerular Filtration Rate 135 mL/min (>60); Est Glom Filt Rate - Afr Amer 163 mL/min (>60); Estimated Creatinine Clearance 51.39 ml/min; Globulin 3.5 g/dL (2.2-4.2); Glucose 106 mg/dL (74-106); Magnesium 2.2 mg/dL (1.6-2.6); Phosphorus 3.2 mg/dL (2.5-4.9); Protein, Total 6.7 g/dL (6.4-8.2); Sodium Level 139 mmol/L (136-145)
[2022-08-19] MEDS: Enoxaparin 30 MG/0.3 ML Syringe SC (10:11)
[2022-08-19] MEDS: Aspirin 81 MG TAB.CHEW PO (10:12)
[2022-08-19] MEDS: Cholecalciferol (VIT D3) 25 MCG TABLET (1,000 UNITS) 100 MCG PO (10:12)
[2022-08-19] MEDS: Metoprolol Tartrate 25 MG Tablet PO (10:12)
[2022-08-19] MEDS: Clopidogrel Bisulfate 75 MG Tablet PO (10:12)
[2022-08-19] MEDS: guaiFENesin 1,200 MG Tablet 1200 MG PO (10:12)
[2022-08-19] MEDS: Amantadine 100 MG Capsule PO (10:12)
[2022-08-19] MEDS: Citalopram 20 MG Tablet PO (10:13)
--- NOTE | 2022-08-19 11:29 | PCM.DC.SUM ---
Providers Date of Admission: 08/16/22 Date of Discharge: 08/19/22 Primary Care Physician: Dr. Humphrey Moreau MD Reason For Visit: GENERALIZED WEAKNESS FROM COVID Diagnosis Discharge Diagnosis (1) COVID-19: Status: Acute Code(s): U07.1 - COVID-19 (2) Generalized muscle weakness: Status: Acute Code(s): M62.81 - Muscle weakness (generalized) (3) Multiple falls: Status: Acute Code(s): R29.6 - Repeated falls (4) Hypokalemia: Status: Acute Code(s): E87.6 - Hypokalemia Medications at Discharge Home Medications citalopram 20 mg tablet 20 mg PO DAILY mental health 10/16/19 polyethylene glycol 3350 17 gram/dose oral powder (Miralax) 17 g PO DAILY PRN Constipation 10/16/19 aspirin 81 mg chewable tablet 81 mg PO DAILY@0800 11/16/19 amantadine HCl 100 mg capsule 100 mg PO BID parkinsons 08/03/20 loratadine 10 mg tablet 10 mg PO DAILY PRN other 08/03/20 cholecalciferol (vitamin D3) 100 mcg (4,000 unit) capsule 100 mcg PO DAILY 11/16/20 acetaminophen 500 mg tablet (Tylenol Extra Strength) 500 mg PO Q6H PRN Pain 12/07/20 carbidopa 25 mg-levodopa 100 mg tablet 1.5 tab PO TID 12/07/20 atorvastatin 40 mg tablet 40 mg PO QHS #90 tabs 10/07/21 clopidogrel 75 mg tablet 75 mg PO DAILY #90 tabs 10/07/21 metoprolol tartrate 25 mg tablet 25 mg PO BID #180 tabs 10/07/21 Hospital Course Operations None Procedures EKG and - (CT brain/chest x-ray/modified barium swallow) Summary of Care Provided Minutes Spent on Discharge: 38 Hospital Course: Mr. Aguiar is an 82-year-old white male who presented to the emergency department at [facility] on 08/16/2022 with a chief complaint of generalized weakness that had been ongoing for the 2 to 3 days prior to presentation.? It was reported that his is recovering from COVID-19 over the past week to week and a half and for about the 2 last 2 days the patient has had weakness and increased from his baseline Parkinson's symptoms.? He had suffered from 2 falls with no severe injury. He had diarrhea but this is since resolved.? Per the family his was unable to care for him at home since she has been recovering from COVID and the patient has been suffering from some brain fogginess as well.? Vital signs at presentation were unremarkable.? CBC showed a leukopenia and chronic stable anemia as well as a mild thrombocytopenia.? His chemistry panel was overall unremarkable with normal renal function normal electrolytes, and normal liver function.? He was on room air at admission and remained on room air throughout his entire hospital stay..? Patient did have a positive COVID test about 4 days prior to presentation and was confirmed here with a COVID PCR. He was admitted to the hospital and treated predominantly with supportive care with regards to his acute COVID-19 infection. He remained stable and his leukopenia was slowly trending up as was his thrombocytopenia. He was evaluated by physical, occupational, and speech therapy during his hospital course. Speech therapy felt that there was a need for modified barium swallow which was performed on 08/18/2022. Testing revealed severe oropharyngeal dysphagia and mild to moderate pharyngeal dysphagia. I suspect that this is likely related to his acute illness plus his baseline Parkinson's disease. Recommendations were for a pur?e thin liquid diet with compensatory strategies to include Small Bites, Small Sips, No Straws, Slow Rate - bites/sips one at a time, Alternate bites/solids and sips/liquids, Sitting upright, Remain sitting upright for 30 minutes after PO intake.? It was also recommended that he had close supervision and feeding assistance with oral intake and ongoing speech therapy services. Physical and Occupational Therapy saw the patient and recommended ongoing therapy services but felt that as long as the patient had someone who could provide hands-on wellness assistant with ambulation and would be with him 17/10 home health would be an option. If that was not the case they felt that he would need skilled placement. This was discussed with the family and they felt that they could provide what he needed at home with the assistance of home health care. And home health care was able to be set up for physical therapy, Occupational Therapy and speech therapy prior to discharge. The patient was remained stable was able to be discharged home on 08/19/2022 with ongoing home health services. No medication changes were made. I recommend follow-up with his outpatient primary care physician within the next week. Discharge diagnoses: Acute COVID-19 infection Acute generalized weakness on chronic debility Oral pharyngeal/pharyngeal dysphagia Hypokalemia-resolved Pancytopenia-improving History of Parkinson's disease CAD Hypertension Hyperlipidemia Vitamin D deficiency Seasonal allergies Constipation History of hairy cell leukemia Osteoarthritis Physical Exam Const alert, oriented x3, no apparent distress and average body habitus Constitutional Narrative: Elderly white male, sitting up in bed, significant masked facies and bradykinesia, nontoxic, appears comfortable General Appearance: cooperative, comfortable, well kempt and well developed Orientation / Consciousness: awake, oriented to person, oriented to place, oriented to time and other Other Details: Patient with a little bit of baseline confusion on other things but alert and oriented x3 Exam Limitations: other limitations HEENT normocephalic, head/scalp atraumatic, hearing grossly normal bilaterally and moist oral mucous membranes HEENT Narrative: Dentures in place, Mallampati 2, no thrush, moderate hearing loss Eyes PERRL, EOMs intact bilaterally and conjunctivae normal Eyes Narrative: No scleral icterus Neck no lymphadenopathy and supple Neck Narrative: Trachea midline, no thyroid enlargement Resp normal respiratory effort, no retractions, no use of accessory muscles and clear to auscultation bilaterally Auscultation: Negative for rales, rhonchi or wheezes Cardio regular rate, regular rhythm, S1 normal heart sound, S2 normal heart sound, no murmurs, no rub, no gallops and no clicks GI normal to inspection, nondistended, normoactive bowel sounds, soft to palpation and non-tender Extremity no clubbing, cyanosis or edema Extremity Narrative: 2+ pedal pulses Skin no rashes or lesions noted, no wounds, skin turgor normal and no jaundice Neuro oriented x3, CN's II-XII intact bilaterally, moves all extremities and no focal motor deficits Neuro Narrative: Masked facies, bradykinesia noted, mild resting tremor noted, speech is slow and deliberate but intelligible and clear, generalized weakness Sensorium / Orientation: awake, alert, oriented to person, oriented to place and oriented to time Speech: Negative for speech normal Psych affect normal Psych Narrative: Very pleasant, affect is flat however suspect this is related to his baseline Parkinson's disease Medical Records Data Medical Nutrition Assessment Dietitian: Malnutrition Criteria Met Start: 08/17/22 14:05 Freq: Status: Active Protocol: Document 08/17/22 14:05 AG (Rec: 08/17/22 14:05 [id number]) Nutrition Malnutrition Evidence of Malnutrition Exists Yes Malnutrition (severe): Acute Illness/Injury Evidenced By Suboptimal Energy Intake ( Severe),Weight Loss (Severe) Clinical Problem Acute Disease or Injury Related Malnutrition Etiology severe, acute malnutrition related to inadequate energy intake d/t acute COVID illness Signs/Symptoms as evidenced by reported unintentional 7.4#/5% wt loss, estimated PO intake meeting < 50% of estimated energy needs > 5 days Status Active Problem Recommendation Dietitian Recommendations/Changes regular diet given evidence of malnutrition- texture/ consistency modifications as indicated per [facility] AIDE; continue ensure plus high protein 120mL 4x/day w/ medpass for additional nutrition if consumed. Weight / BMI Weight Weight: 68.3 kg Body Mass Index (BMI) 24.3 ABG / Lab / Microbiology Data Result Diagrams: 08/19/22 06:45 08/19/22 06:45 Laboratory: Laboratory Results - last 24 hr 08/19/22 06:45: WBC 3.1 L, RBC 4.21 L, Hgb 13.3, Hct 40.1, MCV 95.2 H, MCH 31.6, MCHC 33.2, RDW Std Deviation 47.2 H, RDW Coeff of Syeda 13.4, Plt Count 128 L, MPV 10.6, Immature Gran % (Auto) 0.300, Neut % (Auto) 63.0, Lymph % (Auto) 18.7 L, [place] % (Auto) 10.8 H, Eos % (Auto) 6.9 H, Baso % (Auto) 0.3, Absolute Neuts (auto) 1.9 L, Absolute Lymphs (auto) 0.57 L, Nucleated RBC % 0, Differential Comment SCANNED, Diff Path Review July08/19/22 06:45: Sodium 139, Potassium 4.0, Chloride 106, Carbon Dioxide 28.0, Anion Gap 5, BUN 13, Creatinine 0.61 L, Estim Creat Clear Calc 51.39, Est GFR (MDRD) Af Amer 163, Est GFR (MDRD) Non-Af 135, BUN/Creatinine Ratio 21.3 H, Glucose 106, Calcium 9.2, Phosphorus 3.2, Magnesium 2.2, Total Bilirubin 0.80, AST 22, ALT 10 L, Alkaline Phosphatase 99, Total Protein 6.7, Albumin 3.2, Globulin 3.5, Albumin/Globulin Ratio 0.9 D/C Instructions Discharge Diet: Low fat / Low cholesterol (Direct supervison and assist feeding, no straws, alternate bites & sips 1:1/food pur?ed) Discharge Activity: Return to Normal Activity Meaningful Use Info Meaningful Use Diagnoses (Choose all that apply): None applicable Discharge Plan Admission Admit Date/Time: 08/16/22 22:53 Primary Reason for Your Visit: Generalized weakness Attending Provider: Katty Renteria Primary Care Provider: Humphrey Moreau Consulting Providers: Simon Membreno Instructions Additional Instructions / Restrictions: 1. Please avoid contact with people without a mask for the next 4 days with your diagnosis of COVID-19. 2. Patient was seen by speech therapy while he was hospitalized. They recommended direct supervision and assist with feeding and no straws. They also recommended alternating small bites with sips of fluid with a ratio of 1:1 meaning every other bite should have a following drink of fluid.-->Speech will see you with home health. Swallowing issues are not uncommon with progressing Parkinson's disease. You had a modified barium swallow to test your swallowing while you were admitted. Please see below for the results and recommendations. Speech therapy will follow you as an outpatient Diet:?Puree Textures, Thin Liquids Compensatory Strategies:?Small Bites, Small Sips, No Straws, Slow Rate - bites/sips one at a time, Alternate bites/solids and sips/liquids, Sitting upright, Remain sitting upright for 30 minutes after PO intake Supervision:?1:1 Close Supervision - Feeding assistance Recommend Repeat Modified Barium Swallow:?TBD Need for Skilled Speech Therapy Services:?Yes Comment: Will recommend the patient for dysphagia therapy upon discharge to address deficits in swallow function. Will recommend the patient for oral motor and oropharyngeal strengthening to improve lingual/labial strength/ROM/coordination, as well as hyolaryngeal elevation/excursion and tongue base retraction. The patient would benefit from thorough education regarding diet recommendations and recommended compensatory strategies. Education Completed:?1. Described result of evaluation., 2. Pt understands evaluation & agrees with goals and treatment plan., 4. Family/caregivers understand evaluation & agree w/ goals & tx plan., 7. Pt requires further education on strategies & risks. Discharge Orders/Prescriptions Prescriptions: Continued citalopram 20 mg tablet 20 mg PO DAILY amantadine HCl 100 mg capsule 100 mg PO BID polyethylene glycol 3350 [Miralax] 17 gram/dose powder 17 g PO DAILY PRN (Reason: Constipation) loratadine 10 mg tablet 10 mg PO DAILY PRN (Reason: other) carbidopa-levodopa 25-100 mg tablet 1.5 tab PO TID acetaminophen [Tylenol Extra Strength] 500 mg tablet 500 mg PO Q6H PRN (Reason: Pain) metoprolol tartrate 25 mg tablet 25 mg PO BID Qty: 180 3RF atorvastatin 40 mg tablet 40 mg PO QHS Qty: 90 3RF clopidogrel 75 mg tablet 75 mg PO DAILY Qty: 90 3RF aspirin 81 MG tablet,chewable 81 mg PO DAILY@0800 0RF cholecalciferol (vitamin D3) 100 mcg (4,000 unit) Capsule 100 mcg PO DAILY Referrals / Follow Up: Humphrey Moreau MD [Primary Care Provider] - Within 2 Weeks (Please call later today or on Monday morning to set up an appointment) Disposition Disposition (needs filled in before D/C Order can be placed): Home Health Service Charges/Coding Visit Charges Inpatient E&M: 65155 Disch Hosp >30min
--- NOTE | 2022-08-19 12:10 | CASEMGMT ---
SW sent d/c summary/instructions to [facility] via [employer]. Plan: d/c home with Jasperjose alfredo of [facility], PT, OT, and [facility]ash[facility] FLANNERY
[2022-08-23 09:05] LABS: Pathologist Review Reviewed
== END 2022-08-19 11:31 | disposition home health service (06) ==
LOC: ED 23:02 → PCU 08-17 01:19
PROVIDERS: Admitting Provider Hospitalist; Emergency Provider Emergency Medicine; PCP Family Medicine; Visit Provider Internal Medicine
DX: U07.1 COVID-19 (principal); C91.41 Hairy cell leukemia, in remission; D61.818 Other pancytopenia; G20 Parkinson's disease; E78.5 Hyperlipidemia, unspecified; M62.81 Muscle weakness (generalized); I12.9 Hypertensive chronic kidney disease with stage 1 through stage 4 chronic kidney disease, or unspecified chronic kidney disease; Z79.82 Long term (current) use of aspirin; R13.12 Dysphagia, oropharyngeal phase; M25.511 Pain in right shoulder; E87.6 Hypokalemia; R53.81 Other malaise; E55.9 Vitamin D deficiency, unspecified; I25.10 Atherosclerotic heart disease of native coronary artery without angina pectoris; M19.90 Unspecified osteoarthritis, unspecified site; Z79.899 Other long term (current) drug therapy; Z79.02 Long term (current) use of antithrombotics/antiplatelets; R47.81 Slurred speech; N18.2 Chronic kidney disease, stage 2 (mild); Z66 Do not resuscitate
CPT/HCPCS: 36415; 70450; 71045; 74230; 80048; 80053; 83735; 84100; 85025; 87635; 92526; 92610; 92611; 93005; 96361; 96372; 96374; 97110; 97162; 97166; 97530; 97535; 97802; 99221; 99284; J7030; A4216; G0378; J2405; U0005

== ENCOUNTER → 2023-10-03 | Outpatient (CLI) | payer MEDICARE, SELFPAY ==
[2023-10-03 11:52] LABS: Absolute Lymphocyte Count 0.71 X10^3/uL (0.83-4.51); Absolute Neutrophil Count 4.1 X10^3/uL (2.0-7.7); Basophil# 0.04 X10^3/uL; Basophil% 0.7 % (0-1); Eosinophil# 0.35 X10^3/uL; Eosinophils% 6.2 % (0-5); Hematocrit 41.3 % (40-54); Hemoglobin 13.5 g/dL (13.0-16.5); Lymphocyte # 0.71 X10^3/ul (0.83-4.51); Lymphocyte % 12.5 % (19-41); Mean Corp Hgb Conc 32.7 g/dL (32-36); Mean Corpuscular Hgb 31.3 pg (27.0-32.0); Mean Corpuscular Volume 95.8 fL (80-94); Mean Platelet Vol. 10.9 fl (6.2-12.0); Monocyte# 0.44 X10^3/uL; Monocyte% 7.7 % (0-10); NRBC Flagged by Analyzer 0 % (0-5); Neutrophil # 4.13 X10^3/uL (2.7-7.7); Neutrophil % 72.5 % (47-70); Platelet Count 156 K/mm3 (150-450); RBC Distribution Width CV 13.2 % (11.6-14.6); RBC Distribution Width SD 47.1 fl (35.1-43.9); Red Blood Count 4.31 M/mm3 (4.6-6.2); White Blood Count 5.7 K/mm3 (4.4-11.0)
[2023-10-03 13:43] LABS: AST(SGOT) 24 U/L (15-37); Alanine Aminotransfer ALT/SGPT 22 U/L (16-61); Albumin, Serum 3.7 g/dL (3.2-5.0); Alkaline Phosphatase 110 U/L (45-117); Anion Gap 4 (5-15); BUN 18 mg/dL (7-18); BUN/Creat Ratio 27.4 RATIO (10-20); Calcium,Total 9.7 mg/dL (8.5-10.1); Chloride 103 mmol/L (98-107); Creatinine, Serum 0.66 mg/dL (0.70-1.30); EST Glomerular Filtration Rate 123 mL/min (>60); Est Glom Filt Rate - Afr Amer 149 mL/min (>60); Globulin 3.7 g/dL (2.2-4.2); Glucose 121 mg/dL (74-106); Potassium 4.1 mmol/L (3.5-5.1); Protein, Total 7.4 g/dL (6.4-8.2); Sodium Level 138 mmol/L (136-145)
== END | disposition home or self-care (01) ==
LOC: LAB 10:52
PROVIDERS: PCP Internal Medicine; Referring Provider Physician Assistant Medical; Visit Provider Physician Assistant Medical
DX: R06.09 Other forms of dyspnea (principal)
CPT/HCPCS: 36415; 80053; 83880; 85025

== ENCOUNTER → 2023-10-27 | Outpatient (CLI) | payer MEDICARE, SELFPAY ==
--- NOTE | 2023-10-27 13:12 | ECHOD_ITS ---
Reason For Study: RODRIGUEZ Procedure This was a 2D Doppler, Color Flow transthoracic echocardiogram. Exam performed in department. Left Ventricle Normal LV size. Left ventricular systolic function is normal. The left ventricular ejection fraction is 60 %. Stage 1 diastolic dysfunction. No regional wall motion abnormalities noted. Right Ventricle Normal RV size. Normal systolic function. Atria Normal left atrium. Normal right atrium. Mitral Valve Normal mitral valve. Aortic Valve Trisinus/trileaflet aortic valve. Mild focal aortic valve calcification. Pulmonic Valve The pulmonic valve is not well visualized. Great Vessels Normal aortic root. The pulmonary artery is normal size. Normal inferior vena cava. Pericardium/Pleural No pericardial effusion. MMode/2D Measurements & Calculations LVIDd: 4.5 cm IVSd: 0.86 cm Ao root diam: 3.2 cm LVIDs: 3.0 cm LVPWd: 0.93 cm LA dimension: 3.0 cm RVDd: 2.8 cm FS: 34.9 % LAV(MOD-bp): 37.5 ml LVAd ap4: 24.1 cm2 LVAd ap2: 19.4 cm2 LAV(MOD-bp) Indexed: 20.9 ml/m2 LVLd ap4: 7.2 cm LVLd ap2: 6.6 cm LAV(MOD-sp2): 30.7 ml EDV(MOD-sp4): 69.9 ml EDV(MOD-sp2): 48.5 ml LAV(MOD-sp4): 43.1 ml EDV(sp4-el): 68.5 ml EDV(sp2-el): 48.0 ml LVAs ap4: 13.1 cm2 LVAs ap2: 11.8 cm2 LVLs ap4: 5.8 cm LVLs ap2: 5.8 cm ESV(MOD-sp4): 27.5 ml ESV(MOD-sp2): 21.4 ml ESV(sp4-el): 24.9 ml ESV(sp2-el): 20.3 ml EF(MOD-sp4): 60.7 % EF(MOD-sp2): 55.9 % EF(sp4-el): 63.6 % SV(MOD-sp4): 42.4 ml SV(MOD-sp2): 27.1 ml SV(sp4-el): 43.6 ml TAPSE: 1.9 cm LA A4 area: 15.2 cm2 RA A4 area: 10.8 cm2 Time Measurements MV dec time: 0.21 sec Doppler Measurements & Calculations MV E max gerardo: 58.1 cm/sec Lat Peak E' Gerardo: 3.9 cm/sec Med Peak E' Gerardo: 6.5 cm/sec MV A max gerardo: 74.8 cm/sec E/E' lat: 14.9 E/E' med: 9.0 MV E/A: 0.78 MV V2 max: 93.4 cm/sec MV P1/2t max gerardo: 68.1 cm/sec Ao V2 max: 120.0 cm/sec MV max P.5 mmHg MV P1/2t: 67.1 msec Ao max P.8 mmHg MV V2 mean: 44.9 cm/sec MV dec slope: 297.2 cm/sec2 Ao V2 mean: 80.2 cm/sec MV mean P.97 mmHg Ao mean P.0 mmHg MV V2 VTI: 17.5 cm MVA(P1/2t): 3.3 cm2 Ao V2 VTI: 24.9 cm AV (velocity ratio): 0.79 LV V1 max: 86.7 cm/sec PA V2 max: 151.4 cm/sec LV V1 max P.0 mmHg PA V2 mean: 102.7 cm/sec LV V1 mean P.6 mmHg LV V1 mean: 58.4 cm/sec LV V1 VTI: 19.7 cm ECHO/Echo Complete Interpretation Summary Normal LV size. Left ventricular systolic function is normal. The left ventricular ejection fraction is 60 %. Stage 1 diastolic dysfunction. Trisinus/trileaflet aortic valve. Ordering Physician: Barbara Alves Referring Physician: Keri Cevallos Performed By: Gilma Nowak, PIPPACS, RVT
== END | disposition home or self-care (01) ==
LOC: CVS 13:12
PROVIDERS: PCP Internal Medicine; Visit Provider Physician Assistant Medical
DX: R06.09 Other forms of dyspnea (principal)
CPT/HCPCS: 93306

== ENCOUNTER 2023-11-20 08:54 | Emergency (ER) | payer MEDICARE, SELFPAY ==
[2023-11-20 08:55] VITALS: BP 142/86; PULSE 80; RESP 16; TEMP 35.9; O2SAT 97; BMI 23.7
--- NOTE | 2023-11-20 09:48 | CT_ITS ---
STUDY: CT BRAIN WITHOUT CONTRAST REASON FOR EXAM: Male, 83 years old. Change in mental status. Confusion. Hallucinations. RADIATION DOSAGE (If Supplied By Facility): CTDIvol = ( 44.99 ) mGy, DLP = ( 829.85 ) mGycm TECHNIQUE: Transaxial CT imaging of the brain was performed without administration of intravenous contrast material. Individualized dose optimization techniques were used for this CT. COMPARISON: Comparison is made with prior study dated August 16, 2022. FINDINGS: Normal soft tissue structures. Normal calvarium. There is moderate cerebral atrophy with widening of the extra-axial spaces and ventricular dilatation. There are areas of decreased attenuation within the white matter tracts of the supratentorial brain, consistent with microvascular disease changes. Normal basal ganglia and thalami. Normal brainstem. There is mild cerebellar atrophy. There is no intracranial hemorrhage. There are no findings of an acute ischemic infarction. Atherosclerotic calcific plaques of the cavernous portions of the internal carotid arteries bilaterally. Normal visualized paranasal sinuses. CT/Brain/Head without Contrast IMPRESSION: Chronic involutional changes of the brain. Electronically Signed: Orlin Garcia MD at 10:47 EDT ,
--- NOTE | 2023-11-20 09:49 | EKG12_ITS ---
Test Reason : WEAKNESS Blood Pressure : / mmHG Vent. Rate : 077 BPM Atrial Rate : 077 BPM P-R Int : 158 ms QRS Dur : 078 ms QT Int : 374 ms P-R-T Axes : 036 -05 035 degrees QTc Int : 423 ms Normal sinus rhythm Normal ECG Confirmed by Nic Barlow ([id number]), senior editor TY DONALDSON ([id number]) on 11/22/2023 8:17:48 AM Referred By: Confirmed By:Nic Barlow
--- NOTE | 2023-11-20 09:59 | EX.ED.DYSGE1 ---
HPI History of Present Illness Chief Complaint: Weakness Informant: patient, spouse/S.O. and family Narrative Narrative: 83-year-old male with a history of Parkinson's presenting to the emergency room with generalized weakness and increased hallucinations. states that about 3 weeks ago they saw cardiology. They states that he was started on ranolazine. Since that time he has had worsening fatigue lightheadedness and hallucinations. Family states that he sees bugs everywhere. He has had several light falls. states that they had blood work done at about a week and a half ago as routine checkup. They have a new primary care doctor. They have not tried holding the medicine to see if that makes a difference. 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 notes that his urine seems darker than normal. No reported fevers. states that he used to be able to assist with transfers but is having a more significant difficult time getting him out of the chair. [facility] Medical History History of CAD (coronary artery disease) History of Parkinson's disease Multiple falls Atherosclerosis of coronary artery of [place] heart without angina pectoris Idiopathic Parkinson's disease Dyspnea on exertion Osteoarthritis Essential hypertension Reactive airways dysfunction syndrome Vitamin B-complex deficiency Hairy cell leukemia, in remission Home Medications ?Medication ?Instructions ?Recorded ?Last Taken ?Type citalopram 20 mg tablet 20 mg PO DAILY mental health 10/16/19 11/15/19 History polyethylene glycol 3350 17 17 g PO DAILY PRN Constipation 10/16/19 Unknown History gram/dose oral powder (Miralax) aspirin 81 mg chewable tablet 81 mg PO DAILY@0800 11/16/19 11/21/19 Rx amantadine HCl 100 mg capsule 100 mg PO BID parkinsons 08/03/20 Unknown History loratadine 10 mg tablet 10 mg PO DAILY PRN allergies 08/03/20 Unknown History cholecalciferol (vitamin D3) 100 100 mcg PO DAILY vitamin 11/16/20 Unknown History mcg (4,000 unit) capsule acetaminophen 500 mg tablet 500 mg PO Q6H PRN Pain 12/07/20 Unknown History (Tylenol Extra Strength) carbidopa 25 mg-levodopa 100 mg 1.5 tab PO TID parkinsons 12/07/20 Unknown History tablet nitroglycerin 0.4 mg sublingual 0.4 mg sublingual Q5-15M PRN chest 06/29/23 Unknown Rx tablet (Nitrostat) pain #25 tabs atorvastatin 40 mg tablet 40 mg PO QHS #90 tabs 10/03/23 Unknown Rx mecobalamin (vitamin B12) 1,000 1,000 mcg sublingual Q OTHER DAY 10/03/23 Unknown History mcg disintegrating tablet,sublingual ranolazine 500 mg tablet,extended 500 mg PO BID #60 tabs 10/30/23 Unknown Rx release,12 hr Allergy/AdvReac Type Severity Reaction Status Date / Time levofloxacin (From Levaquin) Allergy Intermediate Rash Verified 11/20/23 08:55 Penicillins Allergy Intermediate rash Verified 11/20/23 08:55 Quinolones Allergy Rash Verified 11/20/23 08:55 Family History Mother Cancer Urinary Brother Cancer throat Sister Diabetes Heart disease Open heart surgery, unsure if due to CAD or valve Sister Diabetes Sister Diabetes Surgical History Presence of coronary angioplasty implant and graft (~11/21/19) History of coronary artery stent placement (11/21/19) History of arthroscopic knee surgery History of tonsillectomy Social History Smoking Status: Never smoker alcohol intake: never substance use type: does not use caffeine: Yes Type: carbonated beverages ROS ROS ED ROS Narrative Generalized weakness Constitutional Constitutional ED: Denies chills, fever(s) or weight loss Eyes Eyes: Denies change in vision or diplopia ENT ENT ED: Denies ear pain, rhinorrhea or sore throat Cardiovascular Cardiovascular: Denies chest pain, orthopnea, palpitations or racing heartbeat Respiratory/Chest Respiratory/Chest: Denies cough, dyspnea or orthopnea Gastrointestinal Gastrointestinal: Denies abdominal pain, diarrhea, nausea or vomiting Genitourinary Genitourinary ED: Denies dysuria, hematuria or urinary frequency Musculoskeletal Musculoskeletal: Denies arthralgias or myalgias Integumentary Reports Abrasions and other Details: Various contusions on extremities ; Denies abscess or rash Neurologic Neurologic: Reports weakness; Denies headache(s) or paresthesias Psychiatric Psychiatric: Reports other Details: Visual hallucinations ; Denies anxiety, depression, suicidal ideation or suicidal thoughts Endocrine Endocrinology: Denies polydipsia, polyphagia or polyuria Allergic/Immunologic Allergic/Immunologic ED: Denies mouth swelling, tongue swelling or urticaria EXAM Physical Exam Const Vital Signs: 11/20/23 08:55 11/20/23 09:07 11/20/23 12:14 Temperature 96.7 F L Temperature Source Temporal Pulse Rate 80 Pulse Rate [Lying] 74 Pulse Rate [Sitting (for 1 minute prior to obtaining)] 80 Pulse Rate [Standing (for 1 minute prior to obtaining)] 89 Respiratory Rate 16 Respiratory Effort Normal Non-Labored Respiratory Pattern Normal Blood Pressure 142/86 H Blood Pressure [Lying] 169/129 H Blood Pressure [Sitting (for 1 minute prior to obtaining)] 153/83 H Blood Pressure [Standing (for 1 minute prior to obtaining)] 153/134 H Blood Pressure Mean 104 Blood Pressure Mean [Lying] 142 Blood Pressure Mean [Sitting (for 1 minute prior to obtaining)] 106 Blood Pressure Mean [Standing (for 1 minute prior to obtaining)] 140 Pulse Ox 97 Oxygen Delivery Method Room Air Positive well nourished and well developed General Appearance ED: well developed HEENT Reports normocephalic, head/scalp atraumatic and moist mucous membranes Eyes PERRL and EOMs intact bilaterally Neck no lymphadenopathy, supple and no JVD Resp normal respiratory effort and clear to auscultation bilaterally Cardio regular rate, regular rhythm and no murmurs GI normal to inspection, nondistended, normoactive bowel sounds and non-tender Palpation: soft Back/Spine no CVA tenderness and normal ROM Extremity normal to inspection General Extremety ED: Negative for edema General Extremity: Negative for edema Neuro CN's II-XII intact bilaterally Neuro Narrative: The patient has mostly unintelligible speak but occasionally I am able to understand him. Family understands him removal more clearly foreign body Sensorium / Orientation: alert Motor Exam: strength 5/5 throughout Psych mental status grossly normal Mood & Affect: Negative for depressed or tearful Skin no rashes or lesions noted and no wounds Skin Narrative: Multiple abrasions and contusions on extremities particularly left elbow MDM MDM MDM Narrative Medical decision making narrative: Differential diagnosis includes medication reaction anemia dehydration UTI pneumonia electrolyte abnormalities stroke advancing Parkinson's/Parkinson's dementia hepatic dysfunction White count 7.1 hemoglobin 13.3 platelet count is 168. BMP is within normal limits liver enzymes within normal limits urinalysis with no overt infection. My independent interpretation of the chest x-ray is no acute process. CT the brain shows no acute findings. He is not orthostatic. Is certainly possible that the medication that he started 3 weeks ago is causing these symptoms of confusion and weakness. His symptoms. Been progressive since starting the medicine. I spoke with the patient's cardiology RDA. She is comfortable with him holding the medication. I spoke with the and the patient. Offered admission for observation. However she feels comfortable taking him home and caring for him there. She will return if worsening. History & Record Review Discussion w/independent historian: Patient and Significant other Lab Data Attestation: I reviewed the patient's lab results. Labs: Laboratory Results - last 24 hr 11/20/23 11/20/23 10:00 10:19 WBC 7.1 RBC 4.23 L Hgb 13.3 Hct 40.1 MCV 94.8 H MCH 31.4 MCHC 33.2 RDW Std Deviation 45.8 H RDW Coeff of Syeda 13.2 Plt Count 168 MPV 10.9 Immature Gran % (Auto) 0.100 Neut % (Auto) 74.9 H Lymph % (Auto) 12.9 L [place] % (Auto) 8.4 Eos % (Auto) 3.3 Baso % (Auto) 0.4 Absolute Neuts (auto) 5.3 Absolute Lymphs (auto) 0.91 Nucleated RBC % 0 Sodium 140 Potassium 3.8 Chloride 105 Carbon Dioxide 29.0 Anion Gap 6 BUN 13 Creatinine 0.82 Estim Creat Clear Calc 61.60 Est GFR (MDRD) Af Amer 115 Est GFR (MDRD) Non-Af 95 BUN/Creatinine Ratio 15.8 Glucose 103 Calcium 9.9 Total Bilirubin 1.00 Direct Bilirubin 0.27 AST 15 ALT 12 L Alkaline Phosphatase 103 Total Protein 7.2 Albumin 3.7 Globulin 3.5 Urine Color Yellow Urine Clarity Clear Urine pH 6.5 Ur Specific [place] 1.020 Urine Protein 15 H Urine Glucose (UA) Normal Urine Ketones 5 H Urine Occult Blood 10 H Urine Nitrite Negative Urine Bilirubin Negative Urine Urobilinogen 4 H Ur Leukocyte Esterase 25 H Urine RBC 0 SEEN Urine WBC 0 SEEN Ur Squamous Epith Cells 0-5 SEEN Amorphous Sediment 1+ Urine Bacteria 0 SEEN Urine Mucus 0 SEEN Radiography Diagnostic Testing: Clinical Impression(s) from Imaging Studies Brain CT 11/20/23 09:48 IMPRESSION: Chronic involutional changes of the brain. Electronically Signed: Orlin Garcia MD at 10:47 EDT , Chest X-Ray 11/20/23 10:33 IMPRESSION: No acute abnormality is seen. Stable examination. Electronically Signed: Orlin Garcia MD at 10:51 EDT , EKG Initial EKG: Attestation: I personally reviewed and interpreted this EKG as follows: Comments: Normal sinus rhythm ventricular rate of 77 bpm Management Discussion w/another healthcare provider: [employer] (Barbara Alves (cardiology)) Discharge Plan Triage Chief Complaint: Weakness ED Provider: Aldo Slater Dx/Rx/DC Orders Clinical Impression: Atherosclerosis of coronary artery of [place] heart without angina pectoris, Acute confusion, Weakness, Medication adverse effect Prescriptions: No Action citalopram 20 mg tablet 20 mg PO DAILY amantadine HCl 100 mg capsule 100 mg PO BID polyethylene glycol 3350 [Miralax] 17 gram/dose powder 17 g PO DAILY PRN (Reason: Constipation) loratadine 10 mg tablet 10 mg PO DAILY PRN (Reason: allergies) carbidopa-levodopa 25-100 mg tablet 1.5 tab PO TID acetaminophen [Tylenol Extra Strength] 500 mg tablet 500 mg PO Q6H PRN (Reason: Pain) nitroglycerin [Nitrostat] 0.4 mg tablet, sublingual 0.4 mg sublingual Q5-15M PRN (Reason: chest pain) Qty: 25 3RF Rx Instructions: do not exceed 3 doses per episode mecobalamin (vitamin B12) 1,000 mcg tablet,disintegrating 1,000 mcg sublingual Q OTHER DAY atorvastatin 40 mg tablet 40 mg PO QHS Qty: 90 3RF aspirin 81 MG tablet,chewable 81 mg PO DAILY@0800 0RF cholecalciferol (vitamin D3) 100 mcg (4,000 unit) Capsule 100 mcg PO DAILY ranolazine 500 mg tablet extended release 12 hr 500 mg PO BID Qty: 60 6RF Primary Care Provider: Keri Cevallos Referrals: Keri Cevallos, [Primary Care Provider] - 3-5 Days Barbara Alves PA [Med Staff - [facility] Practice Prof] - Keep Brandon appointment Activity Restrictions/Additional Instructions: Right now lets have you discontinue the ranolazine. If you do not feel comfortable caring for him at home or feel it is unsafe please return to the emergency department. If this is the medication side effects which can be I would expect improvement over the next several days. Please schedule an early follow-up with your primary care doctor. Please keep your follow-up appointment with Barbara Alves. Please drink plenty of fluids to stay hydrated. Print Language: Lao Disposition Disposition: Home, Self Care Discharge Date/Time: 11/20/23 13:00
[2023-11-20 10:16] LABS: Absolute Lymphocyte Count 0.91 X10^3/uL (0.83-4.51); Absolute Neutrophil Count 5.3 X10^3/uL (2.0-7.7); Basophil# 0.03 X10^3/uL; Basophil% 0.4 % (0-1); Eosinophil# 0.23 X10^3/uL; Eosinophils% 3.3 % (0-5); Hematocrit 40.1 % (40-54); Hemoglobin 13.3 g/dL (13.0-16.5); Lymphocyte # 0.91 X10^3/ul (0.83-4.51); Lymphocyte % 12.9 % (19-41); Mean Corp Hgb Conc 33.2 g/dL (32-36); Mean Corpuscular Hgb 31.4 pg (27.0-32.0); Mean Corpuscular Volume 94.8 fL (80-94); Mean Platelet Vol. 10.9 fl (6.2-12.0); Monocyte# 0.59 X10^3/uL; Monocyte% 8.4 % (0-10); NRBC Flagged by Analyzer 0 % (0-5); Neutrophil # 5.29 X10^3/uL (2.7-7.7); Neutrophil % 74.9 % (47-70); Platelet Count 168 K/mm3 (150-450); RBC Distribution Width CV 13.2 % (11.6-14.6); RBC Distribution Width SD 45.8 fl (35.1-43.9); Red Blood Count 4.23 M/mm3 (4.6-6.2); White Blood Count 7.1 K/mm3 (4.4-11.0)
[2023-11-20 10:27] LABS: Bacteria 0 SEEN /hpf (None Seen); Mucous, Urine 0 SEEN /hpf (<or=2+); Red Blood Cells-Urine 0 SEEN /hpf (0-5); White Blood Cells 0 SEEN /hpf (0-5)
[2023-11-20 10:31] LABS: Color, Urine Yellow (Yellow); Glucose, Dipstick Normal (Normal); Ketone-Dipstick 5 mg/dl (Negative); Leukocyte Esterase-Dipstick 25 /ul (Negative); Nitrite-Dipstick Negative (Negative); Occult Blood-Urine 10 /ul (Negative); Protein-Dipstick 15 mg/dl (Negative); Urine Bilirubin Dipstick Negative (Negative); Urine Clarity Clear (Clear); Urine Urobilinogen 4 mg/dl (Normal); Urine pH 6.5 (5.0 - 8.0)
--- NOTE | 2023-11-20 10:33 | RAD_ITS ---
STUDY: X-RAY CHEST REASON FOR EXAM: Male, 83 years old. Weakness. Coronary artery disease. TECHNIQUE: Single AP portable view of the chest. COMPARISON: Comparison is made with prior study August 16, 2022. FINDINGS: EKG electrodes are seen. The lungs are clear and expanded. There is no demonstrated pleural abnormality. Normal size heart. Normal mediastinum and el. Normal visualized pulmonary arteries. There is atherosclerotic calcification of the aortic arch with tortuosity. Normal visualized thoracic spine. There is degenerative osteoarthritis of the right shoulder. There is no demonstrated abnormality of the visualized soft tissue structures of the upper abdomen. RAD/Chest 1 View (Portable) IMPRESSION: No acute abnormality is seen. Stable examination. Electronically Signed: Orlin Garcia MD at 10:51 EDT ,
[2023-11-20 10:45] LABS: Amorphous Sediment 1+; Squamous Epithelial Cells - UA 0-5 SEEN /hpf (0-5)
[2023-11-20 10:46] LABS: AST(SGOT) 15 U/L (15-37); Alanine Aminotransfer ALT/SGPT 12 U/L (16-61); Albumin, Serum 3.7 g/dL (3.2-5.0); Alkaline Phosphatase 103 U/L (45-117); Anion Gap 6 (5-15); BUN 13 mg/dL (7-18); BUN/Creat Ratio 15.8 RATIO (10-20); Bilirubin, Direct 0.27 mg/dL (0.00-0.30); Calcium,Total 9.9 mg/dL (8.5-10.1); Chloride 105 mmol/L (98-107); Creatinine, Serum 0.82 mg/dL (0.70-1.30); EST Glomerular Filtration Rate 95 mL/min (>60); Est Glom Filt Rate - Afr Amer 115 mL/min (>60); Globulin 3.5 g/dL (2.2-4.2); Glucose 103 mg/dL (74-106); Potassium 3.8 mmol/L (3.5-5.1); Protein, Total 7.2 g/dL (6.4-8.2); Sodium Level 140 mmol/L (136-145)
[2023-11-20 12:14] VITALS: BP 153/134; BP 153/83; BP 169/129; PULSE 74; PULSE 80; PULSE 89
== END 2023-11-20 13:00 | disposition home or self-care (01) ==
PROVIDERS: Emergency Provider Emergency Medicine; PCP Internal Medicine; Visit Provider Emergency Medicine
DX: R44.3 Hallucinations, unspecified (principal); G20.A1 Parkinson's disease without dyskinesia, without mention of fluctuations; R42 Dizziness and giddiness; R41.0 Disorientation, unspecified; R53.1 Weakness; T46.995A Adverse effect of other agents primarily affecting the cardiovascular system, initial encounter; I10 Essential (primary) hypertension; I25.10 Atherosclerotic heart disease of native coronary artery without angina pectoris; Z79.899 Other long term (current) drug therapy
CPT/HCPCS: 70450; 71045; 80048; 80076; 81001; 85025; 87631; 93005; 99284; A4216

== ENCOUNTER → 2024-05-24 | Outpatient (CLI) | payer MEDICARE, SELFPAY | END | disposition home or self-care (01) | LOC: LABSPEC 14:21 | PROVIDERS: PCP Internal Medicine; Visit Provider Nurse Practitioner Family | DX: R30.0 Dysuria (principal) | CPT/HCPCS: 87086; 87088 ==

== ENCOUNTER 2024-05-30 19:34 | Inpatient (IN) | payer MEDICARE, SELFPAY ==
[2024-05-30] VITALS (10 sets, daily range): BP systolic 128–165; BP diastolic 61–76; PULSE 72–99; RESP 15–26; TEMP 36.3–36.4; O2SAT 92–98; BMI 24.0
[2024-05-30 20:19] LABS: Absolute Lymphocyte Count 1.48 X10^3/uL (0.83-4.51); Absolute Neutrophil Count 4.4 X10^3/uL (2.0-7.7); Basophil# 0.03 X10^3/uL; Basophil% 0.4 % (0-1); Eosinophil# 0.28 X10^3/uL; Eosinophils% 4.1 % (0-5); Hematocrit 40.9 % (40-54); Hemoglobin 13.8 g/dL (13.0-16.5); Lymphocyte # 1.48 X10^3/ul (0.83-4.51); Lymphocyte % 21.6 % (19-41); Mean Corp Hgb Conc 33.7 g/dL (32-36); Mean Corpuscular Hgb 32.7 pg (27.0-32.0); Mean Corpuscular Volume 96.9 fL (80-94); Mean Platelet Vol. 11.8 fl (6.2-12.0); Monocyte# 0.64 X10^3/uL; Monocyte% 9.3 % (0-10); NRBC Flagged by Analyzer 0 % (0-5); Neutrophil # 4.42 X10^3/uL (2.7-7.7); Neutrophil % 64.5 % (47-70); Platelet Count 167 K/mm3 (150-450); RBC Distribution Width CV 13.6 % (11.6-14.6); RBC Distribution Width SD 48.7 fl (35.1-43.9); Red Blood Count 4.22 M/mm3 (4.6-6.2); White Blood Count 6.9 K/mm3 (4.4-11.0)
[2024-05-30] MEDS: 0.9% Normal Saline (1000mL) 1,000 ML 999 ML IV (20:20)
--- NOTE | 2024-05-30 20:25 | RAD_ITS ---
PROCEDURE: CHEST PA AND LATERAL REASON FOR EXAM: Shortness of breath TECHNIQUE: Frontal and lateral views of the chest. COMPARISON: 11/20/2023 FINDINGS: Cardiomediastinal silhouette is within normal limits. Lungs are clear. No sizable pneumothorax. Severe right glenohumeral joint osteoarthritis. RAD/Chest PA and Lateral IMPRESSION: No acute airspace abnormality. Reading Location: [facility]
--- NOTE | 2024-05-30 20:25 | CT_ITS ---
PROCEDURE: CT abdomen and pelvis with IV contrast REASON FOR EXAM: Epigastric pain TECHNIQUE: Multiple contiguous axial images through the abdomen and pelvis were obtained after the administration of intravenous contrast. Two-dimensional coronal and sagittal reformatted images were reconstructed. Low-dose imaging technique was utilized. COMPARISON: 11/02/2021 FINDINGS: Lung bases are clear. Heavy three-vessel coronary artery calcifications. Liver, spleen, pancreas and adrenal glands are intact. Cholelithiasis without secondary signs of acute cholecystitis or biliary ductal dilation. Kidneys enhance symmetrically. Small nonobstructing right renal calculus. No suspicious renal mass or hydronephrosis. Urinary bladder is intact. No bowel obstruction, focal bowel wall thickening or significant perienteric inflammation. No pelvic free fluid. No free air. Severely calcified nonaneurysmal abdominal aorta. No suspicious adenopathy. Small bilateral fat containing inguinal hernias. No acute osseous abnormality. Multilevel degenerative changes of the spine. Bilateral pars defects at L5. CT/Abdomen/Pelvis W IV Cont ONLY IMPRESSION: 1. No acute process. 2. Cholelithiasis. 3. Right nephrolithiasis. One or more dose reduction techniques were used (e.g., Automated exposure contr ol, adjustment of the mA and/or kV according to patient size, use of iterative reconstruction technique). Reading Location: [facility]
--- NOTE | 2024-05-30 20:48 | EX.ED.DYSGE1 ---
HPI History of Present Illness Chief Complaint: General Illness Narrative Narrative: Patient is a 83-year-old male with past medical history of CAD, hypertension, hairy cell leukemia in remission, Parkinson's disease who presents to the [facility] with a chief complaint of cough, shortness of breath and chest discomfort. Patient states that for the past few days he has had increasing shortness of breath and worsening cough prompting him to come here for further evaluation management. Per EMS he was 85% on room air. Patient and family members deny any recent sick contacts. He states that tonight he was coughing and could not catch his breath prompting him to come here for the valuation management. [facility] Medical History History of CAD (coronary artery disease) History of Parkinson's disease Multiple falls Atherosclerosis of coronary artery of [place] heart without angina pectoris Idiopathic Parkinson's disease Dyspnea on exertion Osteoarthritis Essential hypertension Reactive airways dysfunction syndrome Vitamin B-complex deficiency Hairy cell leukemia, in remission Home Medications ?Medication ?Instructions ?Recorded ?Last Taken ?Type polyethylene glycol 3350 17 17 g PO DAILY PRN Constipation 10/16/19 Unknown History gram/dose oral powder (Miralax) aspirin 81 mg chewable tablet 81 mg PO DAILY@0800 11/16/19 11/21/19 Rx amantadine HCl 100 mg capsule 100 mg PO BID parkinsons 08/03/20 Unknown History loratadine 10 mg tablet 10 mg PO DAILY PRN allergies 08/03/20 Unknown History cholecalciferol (vitamin D3) 100 100 mcg PO DAILY vitamin 11/16/20 Unknown History mcg (4,000 unit) capsule acetaminophen 500 mg tablet 500 mg PO Q6H PRN Pain 12/07/20 Unknown History (Tylenol Extra Strength) carbidopa 25 mg-levodopa 100 mg 1.5 tab PO TID parkinsons 12/07/20 Unknown History tablet nitroglycerin 0.4 mg sublingual 0.4 mg sublingual Q5-15M PRN chest 06/29/23 Unknown Rx tablet (Nitrostat) pain #25 tabs atorvastatin 40 mg tablet 40 mg PO QHS #90 tabs 10/03/23 Unknown Rx mecobalamin (vitamin B12) 1,000 1,000 mcg sublingual Q OTHER DAY 10/03/23 Unknown History mcg disintegrating tablet,sublingual citalopram 20 mg tablet 40 mg PO DAILY mental health 12/19/23 Unknown History Allergy/AdvReac Type Severity Reaction Status Date / Time levofloxacin (From Levaquin) Allergy Intermediate Rash Verified 05/30/24 19:36 Penicillins Allergy Intermediate rash Verified 05/30/24 19:36 Quinolones Allergy Rash Verified 05/30/24 19:36 Family History Mother Cancer Urinary Brother Cancer throat Sister Diabetes Heart disease Open heart surgery, unsure if due to CAD or valve Sister Diabetes Sister Diabetes Surgical History Presence of coronary angioplasty implant and graft (~11/21/19) History of coronary artery stent placement (11/21/19) History of arthroscopic knee surgery History of tonsillectomy Social History Smoking Status: Never smoker alcohol intake: never substance use type: does not use caffeine: Yes Type: carbonated beverages ROS ROS ED ROS Narrative Constitutional: Denies any fevers, chills, headaches Eyes: Denies change in vision double vision blurry vision Cardiovascular: Complains of chest discomfort as noted above denies palpitations Respiratory: Complains of cough and shortness of breath as noted above Abdomen: Denies abdominal pain nausea vomit diarrhea : Denies any urinary symptoms Neurological: Denies any numbness, weakness, tingling Musculoskeletal: Denies back pain Skin: Denies rashes or lesions EXAM Physical Exam Narrative Exam Narrative: General: Patient is lying in bed rest comfortably did not appear to be in acute distress Head: Atraumatic, normocephalic Eyes: PERRL bilaterally, EOMI bilaterally, no conjunctival injection noted Neck: Soft, supple, trachea midline Cardiovascular: Regular rate and rhythm no murmurs gallops rubs noted Respiratory: Clear to auscultation bilaterally no rales rhonchi or wheezes noted Abdomen: Soft, nondistended, tender to palpation epigastric region no rebound or guarding on exam Extremities: +4/5 strength noted in the bilateral upper and lower extremities, radial pulse +2/4 in the bilateral extremities, no pedal edema on exam Neurological: Patient following commands knew that he was at [facility] Skin: Warm, dry, intact no rashes or lesions noted Const Vital Signs: 05/30/24 19:35 05/30/24 19:35 05/30/24 20:04 Temperature 97.5 F L Temperature Source Oral Pulse Rate 90 Respiratory Rate 15 Respiratory Effort Normal Non-Labored Respiratory Pattern Normal Blood Pressure 163/71 H Blood Pressure Mean 101 Pulse Ox 98 98 Oxygen Delivery Method Room Air Room Air 05/30/24 21:00 05/30/24 21:30 05/30/24 22:00 Temperature 97.4 F L 97.5 F L Temperature Source Oral Oral Pulse Rate 72 91 89 Respiratory Rate 18 26 H 22 H Respiratory Effort Respiratory Pattern Blood Pressure 128/61 H 132/62 H 134/63 H Blood Pressure Mean 83 85 86 Pulse Ox 94 94 94 Oxygen Delivery Method Room Air Room Air 05/30/24 22:47 05/30/24 23:00 Temperature Temperature Source Pulse Rate 99 94 Respiratory Rate 19 H 23 H Respiratory Effort Respiratory Pattern Blood Pressure 144/71 H Blood Pressure Mean 89 Pulse Ox 95 92 Oxygen Delivery Method MDM MDM MDM Narrative Medical decision making narrative: Patient is a 83-year-old male who presented to the emerged part with a chief complaint of chest discomfort and shortness of breath as well as cough. On the differential diagnose includes but not limited to CHF, pneumonia, pneumothorax, upper respiratory infection secondary to viral etiology. Once workup is obtained reviewed he will be reevaluated. Patient be given IV fluids. Patient CBC was reviewed showed no evidence leukocytosis white blood count was noted be 6.9, hemoglobin 13.8, plate count was noted be 167. Patient sodium normal 139, potassium normal 3.7, creatinine was noted be normal at 0.71. Patient's AST and ALT were 22 and 30 respectively. Patient's troponin was noted be 21 with a delta troponin of 22. Patient is EKG reviewed and showed multiple areas of artifact noted however there was noted to be sinus rhythm with a rate of 84 bpm with PVCs noted. Patient proBNP normal at 41, lipase normal at 19. Patient's chest x-ray reviewed by myself and by radiology showed no acute cardiopulmonary processes. Patient CT abdomen pelvis with IV contrast showed cholelithiasis right nephrolithiasis and no other acute processes. Patient tested negative for COVID flu and RSV. We attempted to get the patient up at bedside and pivot to transfer and it took several people to keep him steady as he is extremely weak. I will reach out to the hospitalist for admission. Discussed case with hospitalist Dr. Montanez who accept patient for admission. Patient's family members notified as well as patient is agreeable with this plan all question concerns answered. Lab Data Labs: Laboratory Results - last 24 hr 05/30/24 05/30/24 19:39 22:15 WBC 6.9 RBC 4.22 L Hgb 13.8 Hct 40.9 MCV 96.9 H MCH 32.7 H MCHC 33.7 RDW Std Deviation 48.7 H RDW Coeff of Syeda 13.6 Plt Count 167 MPV 11.8 Immature Gran % (Auto) 0.100 Neut % (Auto) 64.5 Lymph % (Auto) 21.6 [place] % (Auto) 9.3 Eos % (Auto) 4.1 Baso % (Auto) 0.4 Absolute Neuts (auto) 4.4 Absolute Lymphs (auto) 1.48 Nucleated RBC % 0 Sodium 139 Potassium 3.7 Chloride 100 Carbon Dioxide 27.2 Anion Gap 11 BUN 13 Creatinine 0.71 Estim Creat Clear Calc 63.14 Est GFR (MDRD) Non-Af 91 BUN/Creatinine Ratio 18.7 Glucose 99 Calcium 9.6 Total Bilirubin 0.67 Direct Bilirubin 0.35 H AST 22 ALT 30 Alkaline Phosphatase 114 Troponin T High Sens 21 Troponin T Hi Sens 2 Hr 22 NT pro BNP II 41 Total Protein 6.2 Albumin 3.7 Globulin 2.4 Lipase 19 Radiography Diagnostic Testing: Clinical Impression(s) from Imaging Studies Abdomen/Pelvis CT 05/30/24 20:25 IMPRESSION: 1. No acute process. 2. Cholelithiasis. 3. Right nephrolithiasis. One or more dose reduction techniques were used (e.g., Automated exposure control, adjustment of the mA and/or kV according to patient size, use of iterative reconstruction technique). [facility] 05/30/24 20:25 IMPRESSION: No acute airspace abnormality. Reading [facility] Triage Chief Complaint: General Illness ED Provider: Michoacano Landis Dx/Rx/DC Orders Clinical Impression: Generalized weakness Prescriptions: No Action amantadine HCl 100 mg capsule 100 mg PO BID citalopram 20 mg tablet 40 mg PO DAILY polyethylene glycol 3350 [Miralax] 17 gram/dose powder 17 g PO DAILY PRN (Reason: Constipation) loratadine 10 mg tablet 10 mg PO DAILY PRN (Reason: allergies) carbidopa-levodopa 25-100 mg tablet 1.5 tab PO TID acetaminophen [Tylenol Extra Strength] 500 mg tablet 500 mg PO Q6H PRN (Reason: Pain) nitroglycerin [Nitrostat] 0.4 mg tablet, sublingual 0.4 mg sublingual Q5-15M PRN (Reason: chest pain) Qty: 25 3RF Rx Instructions: do not exceed 3 doses per episode mecobalamin (vitamin B12) 1,000 mcg tablet,disintegrating 1,000 mcg sublingual Q OTHER DAY atorvastatin 40 mg tablet 40 mg PO QHS Qty: 90 3RF aspirin 81 MG tablet,chewable 81 mg PO DAILY@0800 0RF cholecalciferol (vitamin D3) 100 mcg (4,000 unit) Capsule 100 mcg PO DAILY Primary Care Provider: Evette Flaherty Referrals: Evette Flaherty, CORRECTIONAL OFFICER CHIEF-C [Primary Care Provider] - Print Language: Iraqi Disposition Disposition: Acute Care Hospital [facility]
[2024-05-30 21:00] LABS: Anion Gap 11 (5-15); BUN 13 mg/dL (4-19); BUN/Creat Ratio 18.7 RATIO (10-20); Calcium,Total 9.6 mg/dL (7.6-11.0); Carbon Dioxide 27.2 mmol/L (21.0-32.0); Chloride 100 mmol/L (98-108); Creatinine, Serum 0.71 mg/dL (0.70-1.20); EST Glomerular Filtration Rate 91 (>60); Estimated Creatinine Clearance 63.14 ml/min (50-250); Glucose 99 mg/dL (70-99); Potassium 3.7 mmol/L (3.3-5.1); Pro- Brain NATRIURETIC PEPTIDE 41 pg/mL (<=1800); Sodium Level 139 mmol/L (133-145); Troponin T High Sensitivity 21 ng/L (<=22)
[2024-05-30 22:49] LABS: AST(SGOT) 22 U/L (<=37); Alanine Aminotransfer ALT/SGPT 30 U/L (<=46); Albumin, Serum 3.7 g/dL (3.4-4.8); Alkaline Phosphatase 114 U/L (40-129); Bilirubin, Direct 0.35 mg/dL (0.00-0.30); Globulin 2.4 g/dL (2.2-4.2); Lipase 19 U/L (13-75); Protein, Total 6.2 g/dL (5.9-8.4); Total Bilirubin 0.67 mg/dL (0.00-1.30); Troponin T High Sens 2 HR 22 ng/L (<=22)
--- NOTE | 2024-05-30 23:34 | PCM.HP.STD ---
HPI - General General Date of Admission: 05/30/24 Date of Service: 05/30/24 Chief Complaint: Fatigue, malaise, cough, dyspnea, pleuritic discomfort HPI Narrative The patient is an 83 y/o M w/ PMHx: Anxiety and Depression, CAD s/p PCI, Parkinson's disease, HTN, HLD, Hx hairy cell leukemia in remission, Reactive airway disease with allergic rhinitis who presents to the [facility] ED on 05/30/24 with history of intermittent cough, dyspnea and chest discomfort worsening over the last few days with more chest discomfort with any cough prompting family to call EMS who reportedly stated that he was 85% on room air with no recent ill contacts and given worsened today prompted eventual ED evaluation. Workup in the ED included T97.5, heart rate 90, BP 163/71, respiratory rate 15, 90% room air with most recent repeat vitals heart rate 94, BP 144/71, respiratory rate 23, 92% on room air, CBC with WC 6.9, he 1 13.8, platelet 167 without marked shift, completely unremarkable CMP aside D bili 0.35, troponin 21, repeat delta 22, BNP 41, CT abdomen and pelvis with no acute intra-abdominal process, evidence of cholelithiasis, evidence of a right nephrolithiasis that is nonobstructing and small, chest x-ray with no acute cardiopulmonary findings, rapid SARS COVID/influenza/RSV PCR negative, EKG with sinus rhythm with occasional PVC with no acute evidence of ischemia. In the ED patient's workup unremarkable and noted to be well on room air however when attempted to get patient up at the bedside to pivot to transfer he needed several individuals to keep him steady and was significantly weak prompting request for admission for debility. In the ED patient ministered 1 L normal saline. [facility] Medical History History of CAD (coronary artery disease) History of Parkinson's disease Multiple falls Atherosclerosis of coronary artery of [place] heart without angina pectoris Idiopathic Parkinson's disease Dyspnea on exertion Osteoarthritis Essential hypertension Reactive airways dysfunction syndrome Vitamin B-complex deficiency Hairy cell leukemia, in remission Home Medications ?Medication ?Instructions ?Recorded ?Last Taken ?Type polyethylene glycol 3350 17 17 g PO DAILY PRN Constipation 10/16/19 Unknown History gram/dose oral powder (Miralax) aspirin 81 mg chewable tablet 81 mg PO DAILY@0800 11/16/19 11/21/19 Rx amantadine HCl 100 mg capsule 100 mg PO DAILY parkinsons 08/03/20 Unknown History loratadine 10 mg tablet 10 mg PO DAILY PRN allergies 08/03/20 Unknown History cholecalciferol (vitamin D3) 100 100 mcg PO DAILY vitamin 11/16/20 Unknown History mcg (4,000 unit) capsule acetaminophen 500 mg tablet 500 mg PO Q6H PRN Pain 12/07/20 Unknown History (Tylenol Extra Strength) carbidopa 25 mg-levodopa 100 mg 1.5 tab PO TID parkinsons 12/07/20 Unknown History tablet nitroglycerin 0.4 mg sublingual 0.4 mg sublingual Q5-15M PRN chest 06/29/23 Unknown Rx tablet (Nitrostat) pain #25 tabs atorvastatin 40 mg tablet 40 mg PO QHS #90 tabs 10/03/23 Unknown Rx mecobalamin (vitamin B12) 1,000 1,000 mcg sublingual Q OTHER DAY 10/03/23 Unknown History mcg disintegrating tablet,sublingual citalopram 20 mg tablet 40 mg PO DAILY mental health 12/19/23 Unknown History donepezil 5 mg tablet 5 mg PO DAILY 05/30/24 Unknown History Allergy/AdvReac Type Severity Reaction Status Date / Time levofloxacin (From Levaquin) Allergy Intermediate Rash Verified 05/30/24 19:36 Penicillins Allergy Intermediate rash Verified 05/30/24 19:36 Quinolones Allergy Rash Verified 05/30/24 19:36 Family History Mother Cancer Urinary Brother Cancer throat Sister Diabetes Heart disease Open heart surgery, unsure if due to CAD or valve Sister Diabetes Sister Diabetes Surgical History Presence of coronary angioplasty implant and graft (~11/21/19) History of coronary artery stent placement (11/21/19) History of arthroscopic knee surgery History of tonsillectomy Social History Smoking Status: Never smoker alcohol intake: never substance use type: does not use caffeine: Yes Type: carbonated beverages ROS ROS Narrative Admission Review of Systems: CONSTITUTIONAL: No weight loss, fever, chills, + weakness or fatigue. HEENT: + Thick oral secretions. Eyes: No visual loss, blurred vision, double vision or yellow sclerae. Ears, Nose, Throat: No hearing loss, sneezing, congestion, runny nose or sore throat. SKIN: No rash or itching, lesions, wounds. CARDIOVASCULAR: + Pleuritic chest discomfort. No palpitations, edema, orthopnea, syncopal events. RESPIRATORY: + Dyspnea, cough with sputum but difficulty bringing up. No wheezing, hemoptysis. GASTROINTESTINAL: No anorexia, nausea, vomiting or diarrhea, abdominal pain, melena, BRBPR. GENITOURINARY: No dysuria, frequency, urgency or retention. NEUROLOGICAL: + Frequent falls, tremors with underlying Parkinson disease. No headache, dizziness, syncope, paralysis, ataxia, numbness or tingling in the extremities, focal weakness, change in bowel or bladder control, seizure. MUSCULOSKELETAL: + muscle, back pain, joint pain or stiffness. HEMATOLOGIC: No anemia. + Easy bleeding/bruising. LYMPHATICS: No enlarged nodes. No history of splenectomy. PSYCHIATRIC: + History of anxiety and depression. ENDOCRINOLOGIC: No reports of sweating, cold or heat intolerance. No polyuria or polydipsia. ALLERGIES: + History of reactive airway disease with allergic rhinitis. Vital Signs Vital Signs Vital Signs: 05/30/24 19:35 05/30/24 19:35 05/30/24 20:04 Temperature 97.5 F L Temperature Source Oral Pulse Rate 90 Respiratory Rate 15 Respiratory Effort Normal Non-Labored Respiratory Pattern Normal Blood Pressure 163/71 H Blood Pressure Mean 101 Pulse Ox 98 98 Oxygen Delivery Method Room Air Room Air 05/30/24 21:00 05/30/24 21:30 05/30/24 22:00 Temperature 97.4 F L 97.5 F L Temperature Source Oral Oral Pulse Rate 72 91 89 Respiratory Rate 18 26 H 22 H Respiratory Effort Respiratory Pattern Blood Pressure 128/61 H 132/62 H 134/63 H Blood Pressure Mean 83 85 86 Pulse Ox 94 94 94 Oxygen Delivery Method Room Air Room Air 05/30/24 22:47 05/30/24 23:00 Temperature Temperature Source Pulse Rate 99 94 Respiratory Rate 19 H 23 H Respiratory Effort Respiratory Pattern Blood Pressure 144/71 H Blood Pressure Mean 89 Pulse Ox 95 92 Oxygen Delivery Method Weight Weight: 148 lb 9.465 oz Body Mass Index (BMI) 24.0 Physical Exam Narrative Physical Examination: General: Awake, alert, oriented x 3 and cooperative, seated upright in the ED bed, fatigued appearing, tremulous with underlying Parkinson's disease. Skin: Normal color, normal turgor, no icterus, no cyanosis except occasional stage ecchymoses. HEENT: AT/NC, EOMI, PERRLA, mildly dry MM, no carotid bruits or JVD noted. Lungs: mildly diminished, greater bases, mildly increased respiratory rate but no distress, poor effort, no appreciated rales, ronchi or wheezing. Heart: Regular rate and rhythm; no gallop, rub audible. Abdomen: Soft, NTTP, ND, mildly hyperactive BS, no appreciated HSM. Extremities: No cyanosis, clubbing, or edema. Neurological: Patient awake, alert, oriented as noted, cognitive function suspect baseline intact with underlying history of Parkinson's disease, unclear dementia component to it; pupils equally reactive to light and accommodation, cranial nerves grossly normal, moving all 4 extremities, no focal deficits, strength severely globally decreased, significant tremors evident. Psychiatric: Affect appears fatigued, no acute evidence of depressive or anxiety feelings but does have underlying history. Results Lab / Micro Data 05/30/24 19:39 05/30/24 19:39 Labs: Laboratory Results - last 24 hr 05/30/24 19:39: WBC 6.9, RBC 4.22 L, Hgb 13.8, Hct 40.9, MCV 96.9 H, MCH 32.7 H, MCHC 33.7, RDW Std Deviation 48.7 H, RDW Coeff of Syeda 13.6, Plt Count 167, MPV 11.8, Immature Gran % (Auto) 0.100, Neut % (Auto) 64.5, Lymph % (Auto) 21.6, [place] % (Auto) 9.3, Eos % (Auto) 4.1, Baso % (Auto) 0.4, Absolute Neuts (auto) 4.4, Absolute Lymphs (auto) 1.48, Nucleated RBC % 0, Sodium 139, Potassium 3.7, Chloride 100, Carbon Dioxide 27.2, Anion Gap 11, BUN 13, Creatinine 0.71, Estim Creat Clear Calc 63.14, Est GFR (MDRD) Non-Af 91, BUN/Creatinine Ratio 18.7, Glucose 99, Calcium 9.6, Troponin T High Sens 21, NT pro BNP II 41 05/30/24 22:15: Total Bilirubin 0.67, Direct Bilirubin 0.35 H, AST 22, ALT 30, Alkaline Phosphatase 114, Troponin T Hi Sens 2 Hr 22, Total Protein 6.2, Albumin 3.7, Globulin 2.4, Lipase 19 Micro: Microbiology 05/30/24 20:24 Mucosa - Nose SARS-CoV-2, Influenza & RSV (PCR) - Final Imaging Radiology Impression Abdomen/Pelvis CT 05/30/24 20:25 IMPRESSION: 1. No acute process. 2. Cholelithiasis. 3. Right nephrolithiasis. One or more dose reduction techniques were used (e.g., Automated exposure control, adjustment of the mA and/or kV according to patient size, use of iterative reconstruction technique). Reading Location: [facility] Chest X-Ray 05/30/24 20:25 IMPRESSION: No acute airspace abnormality. Reading Location: [facility] Assessment & Plan Assessment/Plan (1) Adult failure to thrive: PLAN: Plan The patient is an 83 y/o M w/ PMHx: Anxiety and Depression, CAD s/p PCI, Parkinson's disease, HTN, HLD, Hx hairy cell leukemia in remission, Reactive airway disease with allergic rhinitis who presents to the [facility] ED on 05/30/24 with history of intermittent cough, dyspnea and chest discomfort worsening over the last few days with more chest discomfort with any cough prompting family to call EMS who reportedly stated that he was 85% on room air with no recent ill contacts and given worsened today prompted eventual ED evaluation. #1. Debility, weakness with adult failure to thrive with possible recent viral syndrome, uncertain: Will admit to medical surgical floor, maintain on fall precautions, encourage aggressive I-S to assist with oxygenation and pleuritic discomfort, EKG and cardiac enzymes including delta unremarkable and given discomfort is primarily with coughing fits lower suspicion for any cardiac etiology, will obtain full respiratory viral panel, procalcitonin, judiciously hydrate, maintain on fall precautions as well as aspiration precautions, PT/OT/ST/case specialist consultation for discharge planning. #2. Reactive airway disease with allergic rhinitis: Not on any chronic regimen, will have purulent albuterol if necessary, encourage head of bed and I-S, continue as needed loratadine regimen outpatient. #3. CAD: Status post PCI in 2020, continue aspirin, statin, not on beta-hien or LILIANE inhibitor therapy. #4. Hypertension: Noted history, BP above goal in the ED, not on any regimen per current list but clarifying to be certain, as needed IV hydralazine in the interim. #5. Hyperlipidemia: We will continue patient on statin therapy. #6. History hairy cell leukemia: Unclear exact specifics of treatment and timeline, chart reported history in remission, encourage continued follow-up as previously arranged. #7. Parkinson's disease: Unclear dementia component and debility component, chart history does report frequent falls, will maintain on fall precautions, continue Sinemet and amantadine regimen, PT/OT/case management consulted for discharge planning in addition to ST consultation as chronically has dysphagia issues and works with them outpatient at home. #8. Chronic constipation: We will continue patient home MiraLAX as needed regimen. #9. Anxiety and depression: We will continue patient home citalopram regimen. #10. DVT prophylaxis: Lovenox. #11. CODE status: Patient JESSICA is his who is present and living will is in place. Discussed CODE status at length including difference between FULL code, DNR-CCA and DNR-CC status. Following discussions about the differences in these status, requested DNR-CC but amenable to current evaluations and treatments. Advanced Care Planning Face to Face Time: 16 minutes. Charges/Coding Visit Charges Inpatient E&M: 83919 Init Hosp L2 Procedures Hospitalists Procedures: 21067 Advncd Care Plan 30 Min
[2024-05-31] VITALS (7 sets, daily range): BP systolic 129–157; BP diastolic 64–84; PULSE 88–102; RESP 16–20; TEMP 36.5–37.4; O2SAT 94–96; BMI 23.3; BMI 23.1
[2024-05-31 01:16] LABS: Procalcitonin 0.04 ng/mL (<=0.10); Troponin T High Sens 4 HR 26 ng/L (<=22)
[2024-05-31] MEDS: 0.9% Normal Saline (1000mL) 1,000 ML 100 ML IV (01:27)
[2024-05-31] MEDS: Acetaminophen 325 MG Tablet 650 MG PO (03:45)
[2024-05-31] MEDS: Carbidopa/Levodopa 25/100 Tablet PO ×3 (06:13→16:54)
[2024-05-31 06:54] LABS: Absolute Neutrophil Count 10.9 X10^3/uL (2.0-7.7); Basophil# 0.02 X10^3/uL; Basophil% 0.2 % (0-1); Eosinophil# 0.02 X10^3/uL; Eosinophils% 0.2 % (0-5); Hematocrit 37.3 % (40-54); Hemoglobin 12.6 g/dL (13.0-16.5); Lymphocyte % 1.7 % (19-41); Mean Corp Hgb Conc 33.8 g/dL (32-36); Mean Corpuscular Hgb 32.6 pg (27.0-32.0); Mean Corpuscular Volume 96.4 fL (80-94); Mean Platelet Vol. 12.1 fl (6.2-12.0); Monocyte# 0.59 X10^3/uL; NRBC Flagged by Analyzer 0 % (0-5); Neutrophil # 10.92 X10^3/uL (2.7-7.7); Neutrophil % 92.4 % (47-70); POSITIVE DIFFERENTIAL YES; Platelet Count 136 K/mm3 (150-450); RBC Distribution Width CV 13.5 % (11.6-14.6); RBC Distribution Width SD 48.6 fl (35.1-43.9); Red Blood Count 3.87 M/mm3 (4.6-6.2); White Blood Count 11.8 K/mm3 (4.4-11.0)
[2024-05-31] MEDS: Ketorolac 15 MG/ML Vial IV (07:30)
[2024-05-31 07:53] LABS: ALB/GLOB Ratio 1.5 RATIO (0.9-2.4); AST(SGOT) 516 U/L (<=37); Alanine Aminotransfer ALT/SGPT 513 U/L (<=46); Albumin, Serum 3.9 g/dL (3.4-4.8); Alkaline Phosphatase 166 U/L (40-129); Anion Gap 16 (5-15); BUN 12 mg/dL (4-19); BUN/Creat Ratio 15.7 RATIO (10-20); Carbon Dioxide 20.3 mmol/L (21.0-32.0); Chloride 102 mmol/L (98-108); Creatinine, Serum 0.74 mg/dL (0.70-1.20); EST Glomerular Filtration Rate 90 (>60); Estimated Creatinine Clearance 63.14 ml/min (50-250); Globulin 2.5 g/dL (2.2-4.2); Glucose 163 mg/dL (70-99); Potassium 3.6 mmol/L (3.3-5.1); Protein, Total 6.4 g/dL (5.9-8.4); Sodium Level 139 mmol/L (133-145); Total Bilirubin 1.35 mg/dL (0.00-1.30)
--- NOTE | 2024-05-31 08:42 | PCM.PN.HOSP ---
Reason for Visit Reason for Visit: Diagnoses Adult failure to thrive (05/30/24) Subjective Subjective Patient is an 83-year-old gentleman with multiple comorbidities who was brought to the emergency department with increasing chest congestion, generalized weakness and hypoxia saturating at 85% on room air Objective Data Objective Data Vital Signs: Vital Signs Temp Pulse Resp BP Pulse Ox O2 Del Method 99.4 F H 102 H 18 140/70 H 95 Room Air 05/31/24 06:10 05/31/24 06:10 05/31/24 06:10 05/31/24 06:10 05/31/24 06:10 05/31/24 08:26 Oxygen Delivery Method Room Air Weight: 65.408 kg Body Mass Index (BMI) 23.1 Intake & Output: Intake and Output for Last 24 Hours 05/29/24 05/30/24 05/31/24 23:59 23:59 23:59 Intake Total 1000 / 1000 100 / 100 Output Total 200 / 200 Balance 1000 / 1000 -100 / -100 Lab / Micro Data 05/31/24 06:03 05/31/24 06:03 Labs: Laboratory Results - last 24 hr 05/30/24 19:39: WBC 6.9, RBC 4.22 L, Hgb 13.8, Hct 40.9, MCV 96.9 H, MCH 32.7 H, MCHC 33.7, RDW Std Deviation 48.7 H, RDW Coeff of Syeda 13.6, Plt Count 167, MPV 11.8, Immature Gran % (Auto) 0.100, Neut % (Auto) 64.5, Lymph % (Auto) 21.6, [place] % (Auto) 9.3, Eos % (Auto) 4.1, Baso % (Auto) 0.4, Absolute Neuts (auto) 4.4, Absolute Lymphs (auto) 1.48, Nucleated RBC % 0, Sodium 139, Potassium 3.7, Chloride 100, Carbon Dioxide 27.2, Anion Gap 11, BUN 13, Creatinine 0.71, Estim Creat Clear Calc 63.14, Est GFR (MDRD) Non-Af 91, BUN/Creatinine Ratio 18.7, Glucose 99, Calcium 9.6, Troponin T High Sens 21, NT pro BNP II 41 05/30/24 22:15: Total Bilirubin 0.67, Direct Bilirubin 0.35 H, AST 22, ALT 30, Alkaline Phosphatase 114, Troponin T Hi Sens 2 Hr 22, Total Protein 6.2, Albumin 3.7, Globulin 2.4, Lipase 19 05/31/24 00:30: Troponin T Hi Sens 4Hr 26 H, Procalcitonin 0.04 05/31/24 06:03: WBC 11.8 H, RBC 3.87 L, Hgb 12.6 L, Hct 37.3 L, MCV 96.4 H, MCH 32.6 H, MCHC 33.8, RDW Std Deviation 48.6 H, RDW Coeff of Syeda 13.5, Plt Count 136 L, MPV 12.1 H, Immature Gran % (Auto) 0.500, Neut % (Auto) 92.4 H, Lymph % (Auto) 1.7 L, [place] % (Auto) 5.0, Eos % (Auto) 0.2, Baso % (Auto) 0.2, Absolute Neuts (auto) 10.9 H, Absolute Lymphs (auto) 0.20 L, Nucleated RBC % 0, Sodium 139, Potassium 3.6, Chloride 102, Carbon Dioxide 20.3 L, Anion Gap 16 H, BUN 12, Creatinine 0.74, Estim Creat Clear Calc 63.14, Est GFR (MDRD) Non-Af 90, BUN/Creatinine Ratio 15.7, Glucose 163 H, Calcium 9.0, Total Bilirubin 1.35 H, AST 516 H, ALT 513 H, Alkaline Phosphatase 166 H, Total Protein 6.4, Albumin 3.9, Globulin 2.5, Albumin/Globulin Ratio 1.5 Micro: Microbiology 05/31/24 02:30 Mucosa - Nasopharyngeal Respiratory Panel (PCR) - Final 05/30/24 20:24 Mucosa - Nose SARS-CoV-2, Influenza & RSV (PCR) - Final Radiography Diagnostic Testing: Radiology Impression Abdomen/Pelvis CT 05/30/24 20:25 IMPRESSION: 1. No acute process. 2. Cholelithiasis. 3. Right nephrolithiasis. One or more dose reduction techniques were used (e.g., Automated exposure control, adjustment of the mA and/or kV according to patient size, use of iterative reconstruction technique). Reading Location: [facility] Chest X-Ray 05/30/24 20:25 IMPRESSION: No acute airspace abnormality. Reading Location: [facility] Physical Exam Narrative GENERAL: cooperative HEENT: Atraumatic; normocephalic EYES; Anicteric, Normal Conjunctiva NECK; supple, normal thyroid, RESPIRATORY: Diminished to auscultation CARDIOVASCULAR: Regular S1 S2, GI: soft, normoactive bowel sounds, : No Renal angle tenderness; EXTREMITIES: No edema, no clubbing, MUSCULOSKELETAL: no muscle wasting NEURO: Awake; no lateralizing signs. Tremors at rest SKIN: No Rash PSYCH; Flat affect Assessment & Plan Assessment/Plan (1) Adult failure to thrive: PLAN: Plan Patient is an 83-year-old gentleman with multiple comorbidities who was brought to the emergency department with increasing chest congestion, generalized weakness and hypoxia saturating at 85% on room air 1. Acute hypoxia ? Suspect this is secondary to exacerbation of reactive airway disease workup so far been negative to date patient admitted to regular nursing floor managed with supplemental oxygen as well as bronchodilator treatment regimen 2. Acute transaminitis ? Patient has experienced significant increase in his LFTs following admission. CT of the abdomen and pelvis obtained demonstrated cholelithiasis. Ordered right upper quadrant ultrasound for subsequent eval 3. Physical deconditioning/debility secondary to Parkinson's disease ? Requested for PT OT eval and social service liaison to assist with discharge planning 4. High risk for leukemia ? 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 Coronary artery disease ? PCI in 2019 patient remains on guideline directed medical therapy 6. Hypertension ? Blood pressure controlled, home medications continued with dose adjustment as needed 7. Dyslipidemia ?Patient is on statin therapy, continued at home dose 8. Parkinson's disease ? Patient is on Sinemet did continue home dose 9. Depression with anxiety ? Patient is on citalopram 10. DVT prophylaxis ? On enoxaparin Time spent in the patient's overall evaluation,decision-making process, review of diagnostic data, adjustment of management, discussion with other providers, nursing nursing and ancillary staff involved in patient's care documentation, 52 Minutes Charges/Coding Visit Charges Inpatient E&M: 43683 [facility] L3
--- NOTE | 2024-05-31 08:48 | US_ITS ---
PROCEDURE: LIVER REASON FOR EXAM: Abnormal LFTs COMPARISON: 05/30/2024 FINDINGS: Exam limited by shadowing bowel gas and reportedly by the patient's clinical status. Liver: Unremarkable echotexture. 14.2 cm in length. Gallbladder: Single visualized 4 mm dependent gallstone. Cystic changes suggested within the gallbladder wall which is thickened to 6 mm in some areas but normal in thickness in other areas. No comet tail artifact identified. Reportedly, sonographic Cantor's was negative. Common bile duct: Unremarkable, CBD measures 3 mm. Pancreas: Partially obscured by bowel gas. Minimally imaged portions appear grossly unremarkable. Right kidney: 10.0 cm in length. 8 x 7 x 3 mm nonobstructing intrarenal calculus as on comparison CT. No hydronephrosis or visualized mass. Other: No visualized free fluid. US/Liver IMPRESSION: 1. Cholelithiasis. Cystic changes within the gallbladder wall with mild nonspe cific thickening. Acute cholecystitis is considered unlikely given reported negative sonographic Cantor's sign, however this should be confirmed by clinician exam. Gallbladder-wall thickening may additionally be reactive to a primarily hepatic process, vasogenic, or perhaps related to third spacing in addition to adenomyomatosis which can also cause cystic changes. Co rrelate with patient's clinical status/exam and if there is concern for acute cholecystitis, recommend HIDA. 2. Unremarkable hepatic echotexture. No biliary dilatation. 3. Additional description as above. Reading Location: [id number]
[2024-05-31] MEDS: Donepezil HCl 5 MG Tablet PO (09:11)
[2024-05-31] MEDS: Aspirin 81 MG TAB.CHEW PO (09:11)
[2024-05-31] MEDS: Enoxaparin 40 MG/0.4 ML Syringe SC (09:12)
[2024-05-31] MEDS: Menthol/Lanolin/Calamine/Znox 113 GM Tube 1 APPLIC TOPICAL ×4 (09:12→21:07)
[2024-05-31] MEDS: Citalopram 40 MG TABLET PO (09:12)
[2024-05-31] MEDS: Ensure Plus High Protein 120 ML LIQUID PO ×2 (09:13→21:07)
[2024-05-31] MEDS: Amantadine 100 MG Capsule PO ×2 (09:15→21:06)
--- NOTE | 2024-05-31 15:27 | CASEMGMT ---
Discharge Planning A list of?SNF providers including quality and resource use data and consistent with the patient's preferred geographic region, medical needs, and insurance network was created in [employer] Guide.? This list was provided to the pts spouse. Gisell Moreira, Discharge Planning Asst.
--- NOTE | 2024-05-31 15:28 | CASEMGMT ---
Met with patients and daughter to complete KEENAN form. KEENAN form explained to both who voiced understanding and pts signed form. Original form placed in pt?s chart and copy provided to patient. Gisell Moreira, Discharge Planning Asst
--- NOTE | 2024-05-31 15:40 | CASEMGMT ---
Social Work- Pt and family have SNF list. Pt and family would like to discuss preferences with pt son, not present, and will have selections tomorrow for SW. SW remains available to follow. ADNO Manzo
[2024-05-31] MEDS: Atorvastatin Calcium 40 MG Tablet PO (21:07)
[2024-06-01] VITALS (10 sets, daily range): BP systolic 115–167; BP diastolic 61–82; PULSE 70–95; RESP 16–20; TEMP 36.3–37.7; O2SAT 94–97; BMI 23.7
[2024-06-01] MEDS: Acetaminophen 325 MG Tablet 650 MG PO ×2 (04:44→18:01)
[2024-06-01] MEDS: Carbidopa/Levodopa 25/100 Tablet PO ×3 (06:32→16:16)
[2024-06-01 06:43] LABS: Absolute Lymphocyte Count 0.29 X10^3/uL (0.83-4.51); Basophil# 0.02 X10^3/uL; Basophil% 0.2 % (0-1); Eosinophil# 0.18 X10^3/uL; Eosinophils% 1.8 % (0-5); Hematocrit 38.1 % (40-54); Hemoglobin 12.9 g/dL (13.0-16.5); Lymphocyte # 0.29 X10^3/ul (0.83-4.51); Lymphocyte % 2.9 % (19-41); Mean Corp Hgb Conc 33.9 g/dL (32-36); Mean Corpuscular Hgb 32.1 pg (27.0-32.0); Mean Corpuscular Volume 94.8 fL (80-94); Mean Platelet Vol. 12.2 fl (6.2-12.0); Monocyte# 0.58 X10^3/uL; Monocyte% 5.8 % (0-10); NRBC Flagged by Analyzer 0 % (0-5); Neutrophil # 8.97 X10^3/uL (2.7-7.7); Neutrophil % 88.9 % (47-70); POSITIVE DIFFERENTIAL YES; Platelet Count 160 K/mm3 (150-450); RBC Distribution Width CV 13.5 % (11.6-14.6); RBC Distribution Width SD 46.9 fl (35.1-43.9); Red Blood Count 4.02 M/mm3 (4.6-6.2); White Blood Count 10.1 K/mm3 (4.4-11.0)
[2024-06-01 07:13] LABS: Phosphorus 2.1 mg/dL (2.7-4.5)
--- NOTE | 2024-06-01 07:45 | PCM.PN.HOSP ---
Reason for Visit Reason for Visit: Diagnoses Adult failure to thrive (05/30/24) Subjective Subjective Patient still very hesitant in answering questions. Objective Data Objective Data Vital Signs: Vital Signs Temp Pulse Resp BP Pulse Ox O2 Del Method 98.7 F 90 20 H 136/68 H 95 Room Air 06/01/24 04:43 06/01/24 04:43 06/01/24 04:43 06/01/24 04:43 06/01/24 04:43 06/01/24 04:43 Oxygen Delivery Method Room Air Weight: 66.9 kg Body Mass Index (BMI) 23.7 Intake & Output: Intake and Output for Last 24 Hours 05/30/24 05/31/24 06/01/24 23:59 23:59 23:59 Intake Total 1000 / 1000 1220 / 1220 100 / 100 Output Total 1300 / 1300 700 / 700 Balance 1000 / 1000 -80 / -80 -600 / -600 Lab / Micro Data 06/01/24 05:01 06/01/24 05:01 Labs: Laboratory Results - last 24 hr 05/31/24 06:03: Sodium 139, Potassium 3.6, Chloride 102, Carbon Dioxide 20.3 L, Anion Gap 16 H, BUN 12, Creatinine 0.74, Estim Creat Clear Calc 63.14, Est GFR (MDRD) Non-Af 90, BUN/Creatinine Ratio 15.7, Glucose 163 H, Calcium 9.0, Total Bilirubin 1.35 H, AST 516 H, ALT 513 H, Alkaline Phosphatase 166 H, Total Protein 6.4, Albumin 3.9, Globulin 2.5, Albumin/Globulin Ratio 1.5 06/01/24 05:01: WBC 10.1, RBC 4.02 L, Hgb 12.9 L, Hct 38.1 L, MCV 94.8 H, MCH 32.1 H, MCHC 33.9, RDW Std Deviation 46.9 H, RDW Coeff of Syeda 13.5, Plt Count 160, MPV 12.2 H, Immature Gran % (Auto) 0.400, Neut % (Auto) 88.9 H, Lymph % (Auto) 2.9 L, [place] % (Auto) 5.8, Eos % (Auto) 1.8, Baso % (Auto) 0.2, Absolute Neuts (auto) 9.0 H, Absolute Lymphs (auto) 0.29 L, Nucleated RBC % 0, Phosphorus 2.1 L, Magnesium 2.0 Micro: Microbiology 05/31/24 02:30 Mucosa - Nasopharyngeal Respiratory Panel (PCR) - Final 05/30/24 20:24 Mucosa - Nose SARS-CoV-2, Influenza & RSV (PCR) - Final Radiography Diagnostic Testing: Radiology Impression Liver Ultrasound 05/31/24 08:48 IMPRESSION: 1. Cholelithiasis. Cystic changes within the gallbladder wall with mild nonspecific thickening. Acute cholecystitis is considered unlikely given reported negative sonographic Cantor's sign, however this should be confirmed by clinician exam. Gallbladder-wall thickening may additionally be reactive to a primarily hepatic process, vasogenic, or perhaps related to third spacing in addition to adenomyomatosis which can also cause cystic changes. Correlate with patient's clinical status/exam and if there is concern for acute cholecystitis, recommend HIDA. 2. Unremarkable hepatic echotexture. No biliary dilatation. 3. Additional description as above. Reading Location: [facility] Physical Exam Narrative GENERAL: cooperative HEENT: Atraumatic; normocephalic EYES; Anicteric, Normal Conjunctiva NECK; supple, normal thyroid, RESPIRATORY: Diminished to auscultation CARDIOVASCULAR: Regular S1 S2, GI: soft, normoactive bowel sounds, : No Renal angle tenderness; EXTREMITIES: No edema, no clubbing, MUSCULOSKELETAL: no muscle wasting NEURO: Awake; no lateralizing signs. Tremors at rest SKIN: No Rash PSYCH; Flat affect Assessment & Plan Assessment/Plan (1) Adult failure to thrive: PLAN: Plan Patient is an 83-year-old gentleman with multiple comorbidities who was brought to the emergency department with increasing chest congestion, generalized weakness and hypoxia saturating at 85% on room air 1. Acute hypoxia ? Suspect this is secondary to exacerbation of reactive airway disease workup so far been negative to date patient admitted to regular nursing floor managed with supplemental oxygen as well as bronchodilator treatment regimen ? 06/01/2024; patient has been weaned off supplemental oxygen currently remains on room air 2. Acute transaminitis ? Patient has experienced significant increase in his LFTs following admission. CT of the abdomen and pelvis obtained demonstrated cholelithiasis. Ordered right upper quadrant ultrasound for subsequent eval ? 06/01/2024; patient LFTs remain elevated. Liver ultrasound demonstrated Cholelithiasis. Cystic changes within the gallbladder wall with mild nonspecific thickening. Acute cholecystitis is considered unlikely given reported negative sonographic Cantor's sign, however this should be confirmed by clinician exam. Gallbladder-wall thickening may additionally be reactive to a primarily hepatic process, vasogenic, or perhaps related to third spacing in addition to adenomyomatosis which can also cause cystic changes. Correlate with patient's clinical status/exam and if there is concern for acute cholecystitis, ? Ordered HIDA scan as recommended by radiologist 3. Physical deconditioning/debility secondary to Parkinson's disease ? Requested for PT OT eval and social media content specialist to assist with discharge planning 4. High risk for leukemia ? 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 Coronary artery disease ? PCI in 2019 patient remains on guideline directed medical therapy 6. Hypertension ? Blood pressure controlled, home medications continued with dose adjustment as needed 7. Dyslipidemia ?Patient is on statin therapy, continued at home dose 8. Parkinson's disease ? Patient is on Sinemet did continue home dose 9. Depression with anxiety ? Patient is on citalopram 10. DVT prophylaxis ? On enoxaparin Time spent in the patient's overall evaluation,decision-making process, review of diagnostic data, adjustment of management, discussion with other providers, nursing nursing and ancillary staff involved in patient's care documentation, 38 Minutes Charges/Coding Visit Charges Inpatient E&M: 69645 Subs Hosp L2
[2024-06-01 08:44] LABS: AST(SGOT) 540 U/L (<=37); Alanine Aminotransfer ALT/SGPT 411 U/L (<=46); Albumin, Serum 3.8 g/dL (3.4-4.8); Alkaline Phosphatase 291 U/L (40-129); Anion Gap 13 (5-15); BUN 10 mg/dL (4-19); BUN/Creat Ratio 16.4 RATIO (10-20); Calcium,Total 9.2 mg/dL (7.6-11.0); Carbon Dioxide 21.5 mmol/L (21.0-32.0); Chloride 102 mmol/L (98-108); Creatinine, Serum 0.59 mg/dL (0.70-1.20); EST Glomerular Filtration Rate 96 (>60); Estimated Creatinine Clearance 63.14 ml/min (50-250); Globulin 2.8 g/dL (2.2-4.2); Glucose 115 mg/dL (70-99); Potassium 3.6 mmol/L (3.3-5.1); Protein, Total 6.6 g/dL (5.9-8.4); Sodium Level 136 mmol/L (133-145); Total Bilirubin 3.37 mg/dL (0.00-1.30)
[2024-06-01] MEDS: Citalopram 40 MG TABLET PO (09:17)
[2024-06-01] MEDS: Donepezil HCl 5 MG Tablet PO (09:17)
[2024-06-01] MEDS: Amantadine 100 MG Capsule PO ×2 (09:17→21:51)
[2024-06-01] MEDS: Menthol/Lanolin/Calamine/Znox 113 GM Tube 1 APPLIC TOPICAL ×4 (09:18→21:50)
[2024-06-01] MEDS: Aspirin 81 MG TAB.CHEW PO (09:18)
[2024-06-01] MEDS: Enoxaparin 40 MG/0.4 ML Syringe SC (09:18)
[2024-06-01] MEDS: Ensure Plus High Protein 120 ML LIQUID PO ×4 (09:19→21:50)
[2024-06-01] MEDS: Na Biphos/Potassium Phosphate PACKET 1 PACKET PO ×2 (09:21→21:51)
--- NOTE | 2024-06-01 09:48 | NM_ITS ---
PROCEDURE: HEPATOBILIARY SCAN W/PHARM INT REASON FOR EXAM: Abnormal liver function tests. Cholelithiasis with gallbladder wall thickening on recent ultrasound exam. TECHNIQUE: Intravenous Choletec with planar imaging of the abdomen. 1.3 mcg Kinevac intravenously approximately 15 minutes after the radiopharmaceutical with additional anterior imaging and a region of interest drawn around the gallbladder to calculate a time-activity curve. RADIOPHARMACEUTICAL: 6 mCi technetium 99m mebrofenin COMPARISON: CT abdomen/pelvis from 05/30/2024, ultrasound right upper quadrant from 05/31/2024. FINDINGS: There is good uptake of the radiopharmaceutical by the liver. Normal gallbladder visualization with the gallbladder identified by 45 minutes. Gallbladder Ejection Fraction: 87 % (Normal is >35%) NM/Hepatobilliary Img w/Pharm Int IMPRESSION: NORMAL HIDA SCAN AND GALLBLADDER EJECTION FRACTION. Reading [facility]
--- NOTE | 2024-06-01 12:54 | CASEMGMT ---
SW went to patient's room. Patient's Kellen was present. LUBA introduced self and role at [facility]. SW asked if they had a chance to pick out snf preferences. Kellen said the first choice is [facility] and second would be [facility]. She did not have a 3rd option. SW encouraged them to look at the list as a lot of places are full right now. LUBA then left the room. A few minutes later the nurse came out and told SW that the family just showed up and want SW back in the room. SW went back to patient's room. There were numerous family members in the room. Patient's daughter Josefina started telling SW that patient needs patient to have more fluids. SW said that would be something the nurse would be able to help with. The nurse was standing in the room and began reviewing patient's chart to check orders. Josefina kept on talking about the fluids. Patient's son Camilo redirected her. Josefina then said they need a physician to come to the room and give them a diagnosis and make patient an admission so they can get patient to a snf. Camilo then said they would prefer [facility]. LUBA explained that Kellen told SW the first choice was [facility] and second was [facility]. SW told them it would be good to have a 3rd choice as several facilities are full right now. Camilo then said he has a phone call out to [facility] as he has some friends there. LUBA also explained that because patient has [employer] Medicare he does not have to be inpatient nor does he have to be in the hospital for 3 midnights. That would only be the case if patient had plain Medicare. LUBA let them know SW will make the referral to [facility], but SW will likely not hear back today. LUBA will follow up with them on Monday. LUBA [facility]. Jayashree FLANNERY
--- NOTE | 2024-06-01 13:34 | CASEMGMT ---
Referral sent to [facility] via [facility]. Jayashree Dubois FREELANCE RECRUITER BUSHER HELPER
[2024-06-01] MEDS: guaiFENesin 1,200 MG Tablet 1200 MG PO ×2 (14:35→21:50)
[2024-06-01] MEDS: 0.9% Saline Lock 10 ML Syringe IV (14:35)
[2024-06-01] MEDS: 0.9% Normal Saline (1000mL) 1,000 ML 125 ML IV ×2 (14:35→21:49)
[2024-06-01] MEDS: Atorvastatin Calcium 40 MG Tablet PO (21:52)
[2024-06-02] VITALS (8 sets, daily range): BP systolic 139–145; BP diastolic 62–76; PULSE 67–93; RESP 16–20; TEMP 36.7–37; O2SAT 10–97; BMI 23.7
[2024-06-02 05:18] LABS: Absolute Lymphocyte Count 0.44 X10^3/uL (0.83-4.51); Absolute Neutrophil Count 5.6 X10^3/uL (2.0-7.7); Basophil# 0.02 X10^3/uL; Basophil% 0.3 % (0-1); Eosinophil# 0.46 X10^3/uL; Eosinophils% 6.6 % (0-5); Hematocrit 35.5 % (40-54); Hemoglobin 12.2 g/dL (13.0-16.5); Lymphocyte # 0.44 X10^3/ul (0.83-4.51); Lymphocyte % 6.3 % (19-41); Mean Corp Hgb Conc 34.4 g/dL (32-36); Mean Corpuscular Hgb 32.3 pg (27.0-32.0); Mean Corpuscular Volume 93.9 fL (80-94); Mean Platelet Vol. 11.5 fl (6.2-12.0); Monocyte# 0.52 X10^3/uL; Monocyte% 7.4 % (0-10); NRBC Flagged by Analyzer 0 % (0-5); Neutrophil # 5.55 X10^3/uL (2.7-7.7); POSITIVE DIFFERENTIAL YES; Platelet Count 129 K/mm3 (150-450); RBC Distribution Width CV 13.5 % (11.6-14.6); RBC Distribution Width SD 46.2 fl (35.1-43.9); Red Blood Count 3.78 M/mm3 (4.6-6.2)
[2024-06-02 05:59] LABS: AST(SGOT) 198 U/L (<=37); Alanine Aminotransfer ALT/SGPT 516 U/L (<=46); Albumin, Serum 3.4 g/dL (3.4-4.8); Alkaline Phosphatase 260 U/L (40-129); Anion Gap 9 (5-15); BUN 12 mg/dL (4-19); BUN/Creat Ratio 22.5 RATIO (10-20); Bilirubin, Direct 0.92 mg/dL (0.00-0.30); Calcium,Total 8.8 mg/dL (7.6-11.0); Chloride 106 mmol/L (98-108); Creatinine, Serum 0.52 mg/dL (0.70-1.20); EST Glomerular Filtration Rate 100 (>60); Estimated Creatinine Clearance 63.14 ml/min (50-250); Globulin 2.5 g/dL (2.2-4.2); Glucose 116 mg/dL (70-99); Potassium 3.5 mmol/L (3.3-5.1); Protein, Total 5.9 g/dL (5.9-8.4); Sodium Level 138 mmol/L (133-145)
[2024-06-02] MEDS: Carbidopa/Levodopa 25/100 Tablet PO ×3 (06:15→16:03)
[2024-06-02] MEDS: 0.9% Normal Saline (1000mL) 1,000 ML 125 ML IV (06:15)
--- NOTE | 2024-06-02 07:31 | PN.HOSP_ITS ---
Reason for Visit Reason for Visit: Diagnoses Adult failure to thrive (06/01/24) Subjective Subjective Patient underwent HIDA scan which was reported to be normal. His LFTs still remain elevated. Consult subsequently placed to GI Objective Data Objective Data Vital Signs: Vital Signs Temp Pulse Resp BP Pulse Ox O2 Del Method O2 Flow Rate 98.1 F 88 16 145/71 H 97 Nasal Cannula 2 06/02/24 06:24 06/02/24 06:24 06/02/24 06:24 06/02/24 06:24 06/02/24 06:24 06/02/24 06:24 06/02/24 06:24 Oxygen Flow Rate (L/min) 2 Oxygen Delivery Method Nasal Cannula Weight: 66.9 kg Body Mass Index (BMI) 23.7 Intake & Output: Intake and Output for Last 24 Hours 05/31/24 06/01/24 06/03/24 23:59 23:59 00:59 Intake Total 1220 / 1220 1304.17 / 1404.17 1029.17 / 1029.17 Output Total 1300 / 1300 1150 / 1150 1150 / 1150 Balance -80 / -80 154.17 / 254.17 -120.83 / -120.83 Lab / Micro Data 06/02/24 05:07 06/02/24 05:07 Labs: Laboratory Results - last 24 hr 06/01/24 05:01: WBC 10.1, RBC 4.02 L, Hgb 12.9 L, Hct 38.1 L, MCV 94.8 H, MCH 32.1 H, MCHC 33.9, RDW Std Deviation 46.9 H, RDW Coeff of Syeda 13.5, Plt Count 160, MPV 12.2 H, Immature Gran % (Auto) 0.400, Neut % (Auto) 88.9 H, Lymph % (Auto) 2.9 L, [place] % (Auto) 5.8, Eos % (Auto) 1.8, Baso % (Auto) 0.2, Absolute Neuts (auto) 9.0 H, Absolute Lymphs (auto) 0.29 L, Nucleated RBC % 0, Sodium 136, Potassium 3.6, Chloride 102, Carbon Dioxide 21.5, Anion Gap 13, BUN 10, C reatinine 0.59 L, Estim Creat Clear Calc 63.14, Est GFR (MDRD) Non-Af 96, BUN/Creatinine Ratio 16.4, Glucose 115 H, Calcium 9.2, Phosphorus 2.1 L, Magnesium 2.0, Total Bilirubin 3.37 H, Direct Bilirubin 1.80 H, AST 540 H, ALT 411 H, Alkaline Phosphatase 291 H, Total Protein 6.6, Albumin 3.8, Globulin 2.8 06/02/24 05:07: WBC 7.0, RBC 3.78 L, Hgb 12.2 L, Hct 35.5 L, MCV 93.9, MCH 32.3 H, MCHC 34.4, RDW Std Deviation 46.2 H, RDW Coeff of Syeda 13.5, Plt Count 129 L, MPV 11.5, Immature Gran % (Auto) 0.400, Neut % (Auto) 79.0 H, Lymph % (Auto) 6.3 L, [place] % (Auto) 7.4, Eos % (Auto) 6.6 H, Baso % (Auto) 0.3, Absolute Neuts (auto) 5.6, Absolute Lymphs (auto) 0.44 L, Nucleated RBC % 0, Sodium 138, Potassium 3.5, Chloride 106, Carbon Dioxide 23.0, Anion Gap 9, BUN 12, C reatinine 0.52 L, Estim Creat Clear Calc 63.14, Est GFR (MDRD) Non-Af 100, B UN/Creatinine Ratio 22.5 H, Glucose 116 H, Calcium 8.8, Total Bilirubin 1.50 H, Direct Bilirubin 0.92 H, AST 198 H, ALT 516 H, Alkaline Phosphatase 260 H, Total Protein 5.9, Albumin 3.4, Globulin 2.5 Micro: Microbiology 05/31/24 02:30 Mucosa - Nasopharyngeal Respiratory Panel (PCR) - Final 05/30/24 20:24 Mucosa - Nose SARS-CoV-2, Influenza & RSV (PCR) - Final Radiography Diagnostic Testing: Radiology Impression Hepatobiliary Scan Nuclear Medicine 06/01/24 09:48 IMPRESSION: NORMAL HIDA SCAN AND GALLBLADDER EJECTION FRACTION. Reading Location: [facility] Physical Exam Narrative GENERAL: cooperative HEENT: Atraumatic; normocephalic EYES; Anicteric, Normal Conjunctiva NECK; supple, normal thyroid, RESPIRATORY: Diminished to auscultation CARDIOVASCULAR: Regular S1 S2, GI: soft, normoactive bowel sounds, : No Renal angle tenderness; EXTREMITIES: No edema, no clubbing, MUSCULOSKELETAL: no muscle wasting NEURO: Awake; no lateralizing signs. Tremors at rest SKIN: No Rash PSYCH; Flat affect Assessment & Plan Assessment/Plan (1) Adult failure to thrive: PLAN: Plan Patient is an 83-year-old gentleman with multiple comorbidities who was brought to the emergency department with increasing chest congestion, generalized weakness and hypoxia saturating at 85% on room air 1. Acute hypoxia ? Suspect this is secondary to exacerbation of reactive airway disease workup so far been negative to date patient admitted to regular nursing floor managed with supplemental oxygen as well as bronchodilator treatment regimen ? 06/01/2024; patient has been weaned off supplemental oxygen currently remains on room air 2. Acute transaminitis ? Patient has experienced significant increase in his LFTs following admission. CT of the abdomen and pelvis obtained demonstrated cholelithiasis. Ordered right upper quadrant ultrasound for subsequent eval ? 06/01/2024; patient LFTs remain elevated. Liver ultrasound demonstrated C holelithiasis. Cystic changes within the gallbladder wall with mild nonspecific thickening. Acute cholecystitis is considered unlikely given reported negative sonographic Cantor's sign, however this should be confirmed by clinician exam. Gallbladder-wall thickening may additionally be reactive to a primarily hepatic process, vasogenic, or perhaps related to third spacing in addition to adenomyomatosis which can also cause cystic changes. Correlate with patient's clinical status/exam and if there is concern for acute cholecystitis, ? Ordered HIDA scan as recommended by radiologist ? 06/02/2024;Patient underwent HIDA scan which was reported to be normal. His LFTs still remain elevated. Consult subsequently placed to GI 3. Physical deconditioning/debility secondary to Parkinson's disease ? Requested for PT OT eval and psychiatric social worker supervisor to assist with discharge planning 4. History hairy cell leukemia ? 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 Coronary artery disease ? PCI in 2019 patient remains on guideline directed medical therapy 6. Hypertension ? Blood pressure controlled, home medications continued with dose adjustment as needed 7. Dyslipidemia ?Patient is on statin therapy, continued at home dose 8. Parkinson's disease ? Patient is on Sinemet did continue home dose 9. Depression with anxiety ? Patient is on citalopram 10. DVT prophylaxis ? On enoxaparin Time spent in the patient's overall evaluation,decision-making process, review of diagnostic data, adjustment of management, discussion with other providers, nursing nursing and ancillary staff involved in patient's care documentation, 36 Minutes Charges/Coding Visit Charges Inpatient E&M: 70719 Subs Hosp L2
[2024-06-02] MEDS: Enoxaparin 40 MG/0.4 ML Syringe SC (08:39)
[2024-06-02] MEDS: Donepezil HCl 5 MG Tablet PO (08:40)
[2024-06-02] MEDS: Menthol/Lanolin/Calamine/Znox 113 GM Tube 1 APPLIC TOPICAL ×4 (08:40→21:15)
[2024-06-02] MEDS: Aspirin 81 MG TAB.CHEW PO (08:40)
[2024-06-02] MEDS: guaiFENesin 1,200 MG Tablet 1200 MG PO ×2 (08:40→21:15)
[2024-06-02] MEDS: Citalopram 40 MG TABLET PO (08:40)
[2024-06-02] MEDS: Na Biphos/Potassium Phosphate PACKET 1 PACKET PO ×2 (08:41→21:15)
[2024-06-02] MEDS: Amantadine 100 MG Capsule PO ×2 (08:41→21:15)
[2024-06-02] MEDS: Ensure Plus High Protein 120 ML LIQUID PO ×3 (14:14→21:15)
[2024-06-02] MEDS: Atorvastatin Calcium 40 MG Tablet PO (21:15)
[2024-06-03 04:05] VITALS: BP 152/91; PULSE 81; RESP 17; TEMP 36.5; O2SAT 94
[2024-06-03 04:07] VITALS: O2SAT 94; BMI 23.4
[2024-06-03] MEDS: Carbidopa/Levodopa 25/100 Tablet PO ×3 (06:23→17:06)
[2024-06-03 06:59] LABS: Absolute Lymphocyte Count 0.45 X10^3/uL (0.83-4.51); Absolute Neutrophil Count 6.6 X10^3/uL (2.0-7.7); Basophil# 0.02 X10^3/uL; Basophil% 0.2 % (0-1); Eosinophil# 0.33 X10^3/uL; Eosinophils% 4.1 % (0-5); Hemoglobin 12.1 g/dL (13.0-16.5); Lymphocyte # 0.45 X10^3/ul (0.83-4.51); Lymphocyte % 5.6 % (19-41); Mean Corp Hgb Conc 34.6 g/dL (32-36); Mean Corpuscular Hgb 32.4 pg (27.0-32.0); Mean Corpuscular Volume 93.8 fL (80-94); Monocyte# 0.58 X10^3/uL; Monocyte% 7.2 % (0-10); NRBC Flagged by Analyzer 0 % (0-5); Neutrophil # 6.63 X10^3/uL (2.7-7.7); Neutrophil % 82.5 % (47-70); POSITIVE DIFFERENTIAL YES; Platelet Count 147 K/mm3 (150-450); RBC Distribution Width CV 13.3 % (11.6-14.6); RBC Distribution Width SD 45.9 fl (35.1-43.9); Red Blood Count 3.73 M/mm3 (4.6-6.2)
--- NOTE | 2024-06-03 08:01 | PN.HOSP_ITS ---
Reason for Visit Reason for Visit: Diagnoses Adult failure to thrive (06/01/24) Subjective Subjective Patient seen remains deconditioned and awaiting insurance approval prior to placement in a long-term facility. Patient abnormal LFTs markedly improved Objective Data Objective Data Vital Signs: Vital Signs Temp Pulse Resp BP Pulse Ox O2 Del Method O2 Flow Rate 97.7 F L 81 17 152/91 H 94 Room Air 2 06/03/24 04:05 06/03/24 04:05 06/03/24 04:05 06/03/24 04:05 06/03/24 04:07 06/03/24 04:07 06/02/24 06:24 Oxygen Flow Rate (L/min) 2 Oxygen Delivery Method Room Air Weight: 66.2 kg Body Mass Index (BMI) 23.4 Intake & Output: Intake and Output for Last 24 Hours 06/01/24 06/03/24 06/03/24 23:59 00:59 23:59 Intake Total 1304.17 / 1404.17 2329.17 / 2329.17 200 / 200 Output Total 1150 / 1150 2350 / 2350 400 / 400 Balance 154.17 / 254.17 -20.83 / -20.83 -200 / -200 Lab / Micro Data 06/03/24 06:27 06/03/24 06:27 Labs: Laboratory Results - last 24 hr 06/03/24 06:27: WBC 8.0, RBC 3.73 L, Hgb 12.1 L, Hct 35.0 L, MCV 93.8, MCH 32.4 H, MCHC 34.6, RDW Std Deviation 45.9 H, RDW Coeff of Syeda 13.3, Plt Count 147 L, MPV 12.0, Immature Gran % (Auto) 0.400, Neut % (Auto) 82.5 H, Lymph % (Auto) 5.6 L, [place] % (Auto) 7.2, Eos % (Auto) 4.1, Baso % (Auto) 0.2, Absolute Neuts (auto) 6.6, Absolute Lymphs (auto) 0.45 L, Nucleated RBC % 0 Micro: Microbiology 05/31/24 02:30 Mucosa - Nasopharyngeal Respiratory Panel (PCR) - Final 05/30/24 20:24 Mucosa - Nose SARS-CoV-2, Influenza & RSV (PCR) - Final Physical Exam Narrative GENERAL: cooperative HEENT: Atraumatic; normocephalic EYES; Anicteric, Normal Conjunctiva NECK; supple, normal thyroid, RESPIRATORY: Diminished to auscultation CARDIOVASCULAR: Regular S1 S2, GI: soft, normoactive bowel sounds, : No Renal angle tenderness; EXTREMITIES: No edema, no clubbing, MUSCULOSKELETAL: no muscle wasting NEURO: Awake; no lateralizing signs. Tremors at rest SKIN: No Rash PSYCH; Flat affect Assessment & Plan Assessment/Plan (1) Adult failure to thrive: PLAN: Plan Patient is an 83-year-old gentleman with multiple comorbidities who was brought to the emergency department with increasing chest congestion, generalized weakness and hypoxia saturating at 85% on room air 1. Acute hypoxia ? Suspect this is secondary to exacerbation of reactive airway disease workup so far been negative to date patient admitted to regular nursing floor managed with supplemental oxygen as well as bronchodilator treatment regimen ? 06/01/2024; patient has been weaned off supplemental oxygen currently remains on room air 2. Acute transaminitis ? Patient has experienced significant increase in his LFTs following admission. CT of the abdomen and pelvis obtained demonstrated cholelithiasis. Ordered right upper quadrant ultrasound for subsequent eval ? 06/01/2024; patient LFTs remain elevated. Liver ultrasound demonstrated C holelithiasis. Cystic changes within the gallbladder wall with mild nonspecific thickening. Acute cholecystitis is considered unlikely given reported negative sonographic Cantor's sign, however this should be confirmed by clinician exam. Gallbladder-wall thickening may additionally be reactive to a primarily hepatic process, vasogenic, or perhaps related to third spacing in addition to adenomyomatosis which can also cause cystic changes. Correlate with patient's clinical status/exam and if there is concern for acute cholecystitis, ? Ordered HIDA scan as recommended by radiologist ? 06/02/2024;Patient underwent HIDA scan which was reported to be normal. His LFTs still remain elevated. Consult subsequently placed to GI ? 06/03/2024; patient abnormal LFTs markedly improved 3. Physical deconditioning/debility secondary to Parkinson's disease ? Requested for PT OT eval and social welfare administrator to assist with discharge planning ? 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 Coronary artery disease ? PCI in 2019 patient remains on guideline directed medical therapy 6. Hypertension ? Blood pressure controlled, home medications continued with dose adjustment as needed 7. Dyslipidemia ?Patient is on statin therapy, continued at home dose 8. Parkinson's disease ? Patient is on Sinemet did continue home dose 9. Depression with anxiety ? Patient is on citalopram 10. DVT prophylaxis ? On enoxaparin Time spent in the patient's overall evaluation,decision-making process, review of diagnostic data, adjustment of management, discussion with other providers, nursing nursing and ancillary staff involved in patient's care documentation, 36 Minutes Charges/Coding Visit Charges Inpatient E&M: 85038 Subs Hosp L2
[2024-06-03 08:06] LABS: AST(SGOT) 84 U/L (<=37); Alanine Aminotransfer ALT/SGPT 112 U/L (<=46); Albumin, Serum 3.4 g/dL (3.4-4.8); Alkaline Phosphatase 239 U/L (40-129); Anion Gap 11 (5-15); BUN 9 mg/dL (4-19); BUN/Creat Ratio 18.1 RATIO (10-20); Bilirubin, Direct 0.52 mg/dL (0.00-0.30); Carbon Dioxide 22.6 mmol/L (21.0-32.0); Chloride 105 mmol/L (98-108); Creatinine, Serum 0.52 mg/dL (0.70-1.20); EST Glomerular Filtration Rate 100 (>60); Estimated Creatinine Clearance 63.14 ml/min (50-250); Globulin 2.9 g/dL (2.2-4.2); Glucose 134 mg/dL (70-99); Potassium 3.4 mmol/L (3.3-5.1); Protein, Total 6.3 g/dL (5.9-8.4); Sodium Level 138 mmol/L (133-145); Total Bilirubin 0.91 mg/dL (0.00-1.30)
--- NOTE | 2024-06-03 09:12 | CASEMGMT ---
[facility] accepted and will submit for precert. SW updated. Gisell Moreira DC Planning Asst.
[2024-06-03] MEDS: Amantadine 100 MG Capsule PO ×2 (09:45→22:41)
[2024-06-03] MEDS: Na Biphos/Potassium Phosphate PACKET 1 PACKET PO ×2 (09:45→22:41)
[2024-06-03] MEDS: Citalopram 40 MG TABLET PO (09:45)
[2024-06-03] MEDS: Donepezil HCl 5 MG Tablet PO (09:45)
[2024-06-03] MEDS: Enoxaparin 40 MG/0.4 ML Syringe SC (09:45)
[2024-06-03] MEDS: Aspirin 81 MG TAB.CHEW PO (09:45)
[2024-06-03] MEDS: guaiFENesin 1,200 MG Tablet 1200 MG PO ×2 (09:45→22:41)
[2024-06-03] MEDS: Menthol/Lanolin/Calamine/Znox 113 GM Tube 1 APPLIC TOPICAL ×4 (09:46→22:41)
[2024-06-03] MEDS: Ensure Plus High Protein 120 ML LIQUID PO ×4 (09:46→22:41)
[2024-06-03 10:05] VITALS: BP 125/70; PULSE 96; RESP 18; TEMP 36.7; O2SAT 97
--- NOTE | 2024-06-03 11:43 | CASEMGMT ---
Social Work- SW met with pt and pt to update that [facility] accepted referral and precert has been started. SW requested bedside nurse complete a covid test per SNF. SW remains available to follow. Plan: [facility]; skilled level of care DANO Manzo
--- NOTE | 2024-06-03 13:20 | EX.PCM.CON.G ---
HPI Consult Data Date of Consult: 06/03/24 HPI Narrative Reason for Consultation: Cholestatic hepatitis and jaundice HPI Narrative: SEAN GILMORE, is a 83 M who presented to the emerged part with a chief complaint of cough, shortness of breath and chest discomfort. Patient states that for the past few days he has had increasing shortness of breath and worsening cough prompting him to come here for further evaluation management. Per EMS he was 85% on room air. Patient and family members deny any recent sick contacts. He states that tonight he was coughing and could not catch his breath prompting him to come here for the valuation. He has an extensive pmh including CAD s/p PCI, Parkinson's disease, HTN, HLD, Hx hairy cell leukemia in remission. Workup in the ED included T97.5, heart rate 90, BP 163/71, respiratory rate 15, 90% room air with most recent repeat vitals heart rate 94, BP 144/71, respiratory rate 23, 92% on room air, CBC with WC 6.9, he 1 13.8, platelet 167 without marked shift, completely unremarkable CMP aside D bili 0.35, troponin 21, repeat delta 22, BNP 41, His LFTs were up to a bilirubin 3.9,, alk phos of 275, ALT of 250, ALT 195--> his LFTs have been trending down to a bilirubin of 0.8, alkaline phosphatase 239, ALT of 112 and AST of 84. CT abdomen and pelvis with no acute intra-abdominal process, evidence of cholelithiasis, evidence of a right nephrolithiasis that is nonobstructing and small chest x-ray with no acute cardiopulmonary findings, rapid SARS COVID/influenza/RSV PCR negative EKG with sinus rhythm with occasional PVC with no acute evidence of ischemia. In the ED patient's workup unremarkable and noted to be well on room air however when attempted to get patient up at the bedside to pivot to transfer he needed several individuals to keep him steady and was significantly weak prompting request for admission for debility. [facility] Medical History History of CAD (coronary artery disease) History of Parkinson's disease Multiple falls Atherosclerosis of coronary artery of [place] heart without angina pectoris Idiopathic Parkinson's disease Dyspnea on exertion Osteoarthritis Essential hypertension Reactive airways dysfunction syndrome Vitamin B-complex deficiency Hairy cell leukemia, in remission Home Medications ?Medication ?Instructions ?Recorded ?Last Taken ?Type polyethylene glycol 3350 17 17 g PO DAILY PRN Constipation 10/16/19 Unknown History gram/dose oral powder (Miralax) aspirin 81 mg chewable tablet 81 mg PO DAILY@0800 11/16/19 11/21/19 Rx amantadine HCl 100 mg capsule 100 mg PO DAILY parkinsons 08/03/20 Unknown History loratadine 10 mg tablet 10 mg PO DAILY PRN allergies 08/03/20 Unknown History cholecalciferol (vitamin D3) 100 100 mcg PO DAILY vitamin 11/16/20 Unknown History mcg (4,000 unit) capsule acetaminophen 500 mg tablet 500 mg PO Q6H PRN Pain 12/07/20 Unknown History (Tylenol Extra Strength) carbidopa 25 mg-levodopa 100 mg 1.5 tab PO TID parkinsons 12/07/20 Unknown History tablet nitroglycerin 0.4 mg sublingual 0.4 mg sublingual Q5-15M PRN chest 06/29/23 Unknown Rx tablet (Nitrostat) pain #25 tabs atorvastatin 40 mg tablet 40 mg PO QHS #90 tabs 10/03/23 Unknown Rx mecobalamin (vitamin B12) 1,000 1,000 mcg sublingual Q OTHER DAY 10/03/23 Unknown History mcg disintegrating tablet,sublingual citalopram 20 mg tablet 40 mg PO DAILY mental health 12/19/23 Unknown History donepezil 5 mg tablet 5 mg PO DAILY 05/30/24 Unknown History aluminum-mag hydroxide-simethicone 30 ml PO Q6H PRN PRN Gastric 06/03/24 Unknown Rx 400 mg-400 mg-40 mg/5 mL oral susp Burning #0 mL (Mag-Al Plus Extra Strength) food supplemt, lactose-reduced 120 ml PO 4X/DAY #0 mL 06/03/24 Unknown Rx 0.08 gram-1.5 kcal/mL oral liquid (Ensure Plus High Protein) guaifenesin 1,200 mg tablet, 1,200 mg PO BID #0 tabs 06/03/24 Unknown Rx extended release 12 hr (Mucus Relief ER) melatonin 3 mg tablet 3 mg PO QHS PRN PRN Insomnia #0 06/03/24 Unknown Rx tabs potassium, sodium phosphates 280 1 packet PO BID #0 ea 06/03/24 Unknown Rx mg-160 mg-250 mg oral powder packet sennosides 8.6 mg-docusate sodium 2 tab PO BID PRN PRN Constipation 06/03/24 Unknown Rx 50 mg tablet (Stimulant Laxative #0 tabs Plus) Allergy/AdvReac Type Severity Reaction Status Date / Time levofloxacin (From Levaquin) Allergy Intermediate Rash Verified 05/30/24 19:36 Penicillins Allergy Intermediate rash Verified 05/30/24 19:36 Quinolones Allergy Rash Verified 05/30/24 19:36 Family History Mother Cancer Urinary Brother Cancer throat Sister Diabetes Heart disease Open heart surgery, unsure if due to CAD or valve Sister Diabetes Sister Diabetes Surgical History Presence of coronary angioplasty implant and graft (~11/21/19) History of coronary artery stent placement (11/21/19) History of arthroscopic knee surgery History of tonsillectomy Social History Smoking Status: Never smoker alcohol intake: never substance use type: does not use caffeine: Yes Type: carbonated beverages ROS Constitutional Constitutional: Denies fatigue, fever(s), poor appetite, weight gain or weight loss Gastrointestinal Gastrointestinal: Denies belching, bloating, change in bowel habits, change in stool character, chewing difficulty, coffee ground emesis, constipation, cramping, diarrhea, dyspepsia, dysphagia, early satiety, excessive flatus, fecal incontinence, heartburn, hematemesis, hematochezia, hemorrhoids, loose stools, melena, nausea, odynophagia, rectal bleeding, tenesmus, vomiting or weight changes Physical Exam Narrative GENERAL: cooperative HEENT: Atraumatic; normocephalic EYES; Anicteric, Normal Conjunctiva NECK; supple, normal thyroid, RESPIRATORY: Diminished to auscultation CARDIOVASCULAR: Regular S1 S2, GI: soft, normoactive bowel sounds, : No Renal angle tenderness; EXTREMITIES: No edema, no clubbing, MUSCULOSKELETAL: no muscle wasting NEURO: Awake; no lateralizing signs. Tremors at rest SKIN: No Rash PSYCH; Flat affect Lab / Micro Data 06/03/24 06:27 06/03/24 06:27 Labs: Laboratory Results - last 24 hr 06/03/24 06:27: WBC 8.0, RBC 3.73 L, Hgb 12.1 L, Hct 35.0 L, MCV 93.8, MCH 32.4 H, MCHC 34.6, RDW Std Deviation 45.9 H, RDW Coeff of Syeda 13.3, Plt Count 147 L, MPV 12.0, Immature Gran % (Auto) 0.400, Neut % (Auto) 82.5 H, Lymph % (Auto) 5.6 L, [place] % (Auto) 7.2, Eos % (Auto) 4.1, Baso % (Auto) 0.2, Absolute Neuts (auto) 6.6, Absolute Lymphs (auto) 0.45 L, Nucleated RBC % 0, Sodium 138, Potassium 3.4, Chloride 105, Carbon Dioxide 22.6, Anion Gap 11, BUN 9, Creatinine 0.52 L, Estim Creat Clear Calc 63.14, Est GFR (MDRD) Non-Af 100, BUN/Creatinine Ratio 18.1, Glucose 134 H, Calcium 9.0, Total Bilirubin 0.91, Direct Bilirubin 0.52 H, AST 84 H, ALT 112 H, Alkaline Phosphatase 239 H, Total Protein 6.3, Albumin 3.4, Globulin 2.9 Micro: Microbiology 06/03/24 11:59 Nasal Secretion SARS-CoV-2 Antigen (Rapid) - Final Assessment & Plan Assessment/Plan (1) Adult failure to thrive: PLAN: Plan Patient is an 83-year-old gentleman with multiple comorbidities who was brought to the emergency department with increasing chest congestion, generalized weakness and hypoxia saturating at 85% on room air Jaundice and Acute transaminitis ? This is likely secondary to choledocholithiasis from weight loss. He does have cholelithiasis on imaging. His LFTs do not follow the pattern of ischemic hepatitis. I would expect his liver enzymes to go up and start to plateau and the bilirubin start to continue to go up as the liver enzymes went down. I do not suspect that he has acute cholecystitis. I would recommend MRCP to make sure that there is nothing else left in the duct and he would not benefit from ursodiol. I do not think he needs a procedure at this time. Charges/Coding Visit Charges Inpatient E&M: 04333 Init Hosp L3
--- NOTE | 2024-06-03 13:56 | MRI_ITS ---
PROCEDURE: MRCP ABDOMEN WITHOUT CONTRAST REASON FOR EXAM: jaundice and cholestatic hepatitis TECHNIQUE: MRI abdomen was performed without IV contrast. MRCP was performed including generation of 3-D reformats. COMPARISON: 06/01/2024 and prior FINDINGS: Note that the exam was optimized for evaluation of the gallbladder and biliary tree rather than the remaining abdominal viscera. Note also that sensitivity is limited in the absence of IV contrast. Variable overall mild mild/moderate motion limitation, with some sequences being moderately motion degraded.. Liver: Grossly unremarkable. Gallbladder: Trace gallbladder wall thickening along the gallbladder fossa. Suspect tiny amount of layering sludge and/or stones dependently and medially near the gallbladder neck, better seen sonographically and on comparison CT given limitations. No appreciable pericholecystic edema. Biliary tree: No biliary dilatation or definite choledocholithiasis allowing for limitations. Pancreas: Atrophic. Mildly dilated main pancreatic duct measures up to 5 mm at the level of the pancreatic neck and continuing to the level of the ampulla. Scattered T2 bright cystic foci up to 15 x 7 mm along the anterior pancreatic body and 10 x 8 mm in the pancreatic neck, at least the dominant two lesions demonstrate main pancreatic ductal communication. Additional dominant lesion in the uncinate process measures 9 x 6 mm without definite ductal communication. Numerous mildly dilated side branches also present. Other: Trace pleural effusions are new from 05/30/2024. Gaseous dilatation of the sigmoid colon to 6.5 cm, minimally increased from 05/30/2024, not well evaluated by MRCP. Multilevel spondylosis. MRI/MRCP Abdomen without Contrast IMPRESSION: 1. Somewhat motion limited noncontrast exam as above. 2. No biliary dilatation or definite choledocholithiasis allowing for limitatio ns. Suspected tiny amount of dependent gallbladder sludge/stones better seen on comparison CT/US. Trace nonspecific gallbladder w all thickening along the gallbladder fossa, less conspicuous than prior US. 3. 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 Mild dilatation of the main pancreatic duct to 5 mm is borderline but technica lly considered a worrisome feature, however there are no high-risk features evident by noncontrast MRCP. Recommend outpatient GI consultation for management, and at a minimum, follow-up MRI abdomen with and without contrast and with MRCP in 2 years per AC R recommendations. 4. Findings suggestive of mild sigmoid colonic ileus more likely than distal ob struction, not well evaluated by MRCP. 5. Trace pleural effusions new from 05/30/2024. 6. Additional description as above. Reading Location: [id number]
--- NOTE | 2024-06-03 14:46 | CASEMGMT ---
Social Work LUBA spoke with dtr Josefina to provide updates and education on discharge process. Josefina requests that Camilo, pt son, be called tomorrow with discharge timing. Pt dtr would like to speak with bedside nurse; nurse updated. LUBA remains available to follow. Plan: [facility]; skilled level of care DANO Manzo
[2024-06-03 17:00] VITALS: BP 136/77; PULSE 91; RESP 16; TEMP 36.7; O2SAT 94
[2024-06-03] MEDS: Atorvastatin Calcium 40 MG Tablet PO (22:41)
[2024-06-03 23:00] VITALS: BP 148/81; PULSE 94; RESP 18; TEMP 36.6; O2SAT 94
[2024-06-04 05:00] VITALS: BP 153/84; PULSE 93; RESP 13; TEMP 36.7; O2SAT 98
[2024-06-04 05:49] VITALS: BMI 23.4
[2024-06-04] MEDS: Carbidopa/Levodopa 25/100 Tablet PO ×2 (05:56→11:04)
[2024-06-04 08:07] VITALS: BP 134/68; PULSE 85; RESP 18; TEMP 36.5; O2SAT 97
[2024-06-04] MEDS: Na Biphos/Potassium Phosphate PACKET 1 PACKET PO (08:44)
[2024-06-04] MEDS: Citalopram 40 MG TABLET PO (08:44)
[2024-06-04] MEDS: guaiFENesin 1,200 MG Tablet 1200 MG PO (08:44)
[2024-06-04] MEDS: Enoxaparin 40 MG/0.4 ML Syringe SC (08:44)
[2024-06-04] MEDS: Aspirin 81 MG TAB.CHEW PO (08:44)
[2024-06-04] MEDS: Menthol/Lanolin/Calamine/Znox 113 GM Tube 1 APPLIC TOPICAL (08:45)
[2024-06-04] MEDS: Amantadine 100 MG Capsule PO (08:45)
[2024-06-04] MEDS: Donepezil HCl 5 MG Tablet PO (08:45)
[2024-06-04 10:11] VITALS: O2SAT 97
--- NOTE | 2024-06-04 10:54 | DS.PCM_ITS ---
Providers Date of Admission: 06/01/24 Date of Discharge: 06/04/24 Primary Care Physician: JEANNE Knight Consultations 06/02/24 07:31 Consult: Gastroenterology Routine Consulting Provider: Ra Lovehsaan Reason for Consult: abnormal LFT EMERGENT Consult: No MD Notified: Yes Date Notified: 06/02/24 Time Notified: 11:33 Method of Notification: Text Reason For Visit: ADULT FTT, POSS VIRAL SYNDROME Diagnosis Discharge Diagnosis (1) Adult failure to thrive: Status: Acute Code(s): R62.7 - Adult failure to thrive Medications at Discharge Home Medications polyethylene glycol 3350 17 gram/dose oral powder (Miralax) 17 g PO DAILY PRN Constipation 10/16/19 aspirin 81 mg chewable tablet 81 mg PO DAILY@0800 11/16/19 amantadine HCl 100 mg capsule 100 mg PO DAILY parkinsons 08/03/20 loratadine 10 mg tablet 10 mg PO DAILY PRN allergies 08/03/20 cholecalciferol (vitamin D3) 100 mcg (4,000 unit) capsule 100 mcg PO DAILY vitamin 11/16/20 acetaminophen 500 mg tablet (Tylenol Extra Strength) 500 mg PO Q6H PRN Pain 12/07/20 carbidopa 25 mg-levodopa 100 mg tablet 1.5 tab PO TID parkinsons 12/07/20 nitroglycerin 0.4 mg sublingual tablet (Nitrostat) 0.4 mg sublingual Q5-15M PRN chest pain #25 tabs 06/29/23 atorvastatin 40 mg tablet 40 mg PO QHS #90 tabs 10/03/23 mecobalamin (vitamin B12) 1,000 mcg disintegrating tablet,sublingual 1,000 mcg sublingual Q OTHER DAY 10/03/23 citalopram 20 mg tablet 40 mg PO DAILY mental health 12/19/23 donepezil 5 mg tablet 5 mg PO DAILY 05/30/24 aluminum-mag hydroxide-simethicone 400 mg-400 mg-40 mg/5 mL oral susp (Mag-Al Plus Extra Strength) 30 ml PO Q6H PRN PRN Gastric Burning #0 mL 06/03/24 food supplemt, lactose-reduced 0.08 gram-1.5 kcal/mL oral liquid (Ensure Plus High Protein) 120 ml PO 4X/DAY #0 mL 06/03/24 guaifenesin 1,200 mg tablet, extended release 12 hr (Mucus Relief ER) 1,200 mg PO BID #0 tabs 06/03/24 melatonin 3 mg tablet 3 mg PO QHS PRN PRN Insomnia #0 tabs 06/03/24 potassium, sodium phosphates 280 mg-160 mg-250 mg oral powder packet 1 packet PO BID #0 ea 06/03/24 sennosides 8.6 mg-docusate sodium 50 mg tablet (Stimulant Laxative Plus) 2 tab PO BID PRN PRN Constipation #0 tabs 06/03/24 albuterol sulfate 90 mcg/actuation aerosol inhaler 1 inh inhalation Q6H PRN shortness of breath or wheezing #8.5 grams 06/04/24 Hospital Course Operations None Procedures EKG and - (CT abdomen pelvis, liver ultrasound, HIDA scan, MRCP) Summary of Care Provided Minutes Spent on Discharge: 35 Hospital Course: Patient is an 83-year-old male who presented to [facility] ED on 05/30/2024 with worsening cough and shortness of breath. Hospital course as noted below. Patient discharged to SNF in stable condition on 06/04. 1. Acute hypoxia, resolved ? Suspected secondary to exacerbation of reactive airway disease. Infectious workup was negative. Treated with scheduled bronchodilators with improvement, did not require any supplemental oxygen on discharge. Albuterol inhaler as needed ordered on discharge. 2. Acute transaminitis ? Noted to have significant worsening of his LFTs following admission. CT abdomen pelvis showed showed cholelithiasis. Gallbladder ultrasound gallbladder wall thickening of unclear etiology. HIDA scan was normal. However, LFTs remained elevated. GI evaluated and recommended MRCP for further evaluation. 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 LFTs much improved by 06/03. No need for further inpatient management, recommend outpatient follow-up with GI on discharge as needed. 3. Acute on chronic debility in setting of advanced Parkinson's disease ? PT/OT/case management followed. Stable for discharge to SNF on 06/04. Continue home Sinemet, amantadine and donepezil. Chronic medical conditions: ? History of CAD with stenting, hyperlipidemia: Continue home aspirin and statin. ? Depression with anxiety: Continue home citalopram. ? History of hairy cell leukemia: Per history but no details available in chart. Total clinical time spent by myself addressing the patient's medical issues, reviewing all the data, and collaborating with patient's care team: 35 minutes. Physical Exam Narrative GENERAL: cooperative HEENT: Atraumatic; normocephalic EYES; Anicteric, Normal Conjunctiva NECK; supple, normal thyroid, RESPIRATORY: Diminished to auscultation CARDIOVASCULAR: Regular S1 S2, GI: soft, normoactive bowel sounds, : No Renal angle tenderness; EXTREMITIES: No edema, no clubbing, MUSCULOSKELETAL: no muscle wasting NEURO: Awake; no lateralizing signs. Tremors at rest SKIN: No Rash PSYCH; Flat affect Weight / BMI Weight Weight: 66.2 kg Body Mass Index (BMI) 23.4 ABG / Lab / Microbiology Data 06/03/24 06:27 06/03/24 06:27 Microbiology: Microbiology 06/03/24 11:59 Nasal Secretion SARS-CoV-2 Antigen (Rapid) - Final 05/31/24 02:30 Mucosa - Nasopharyngeal Respiratory Panel (PCR) - Final 05/30/24 20:24 Mucosa - Nose SARS-CoV-2, Influenza & RSV (PCR) - Final Radiography Diagnostic Testing: Radiology Impression MRCP 06/03/24 13:56 IMPRESSION: 1. Somewhat motion limited noncontrast exam as above. 2. No biliary dilatation or definite choledocholithiasis allowing for limitations. Suspected tiny amount of dependent gallbladder sludge/stones better seen on comparison CT/US. Trace nonspecific gallbladder wall thickening along the gallbladder fossa, less conspicuous than prior US. 3. 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 Mild dilatation of the main pancreatic duct to 5 mm is borderline but technically considered a worrisome feature, however there are no high-risk features evident by noncontrast MRCP. Recommend outpatient GI consultation for management, and at a minimum, follow-up MRI abdomen with and without contrast and with MRCP in 2 years per ACR recommendations. 4. Findings suggestive of mild sigmoid colonic ileus more likely than distal obstruction, not well evaluated by MRCP. 5. Trace pleural effusions new from 05/30/2024. 6. Additional description as above. Reading Location: [id number] D/C Instructions DC O2, CPAP, BIPAP Needs Home O2 Discharge instructions: No Meaningful Use Info Meaningful Use Meaningful Use Diagnoses (Choose all that apply): None applicable Ischemic Stroke Statin Dosing Therapy Reference: STATIN DOSE THERAPY REFERENCE: * Patients > 75 years receive moderate or high dose statin therapy. * Patients 75 years or YOUNGER should receive HIGH intensity statin dose unless contraindicated. You will be required to document reason for non-treatment if statin daily dose does not meet guidelines. HIGH DOSE STATIN THERAPY DAILY Atorvastatin > than or = to 40 mg Rosuvastatin > than or = to 20 mg Amlodipine + Atorvastatin > than or = to 2.5/40 mg Ezetimibe + Simvastatin 10/80 mg Simvastatin 80mg Discharge Plan Admission Admit Date/Time: 06/01/24 13:05 Primary Reason for Your Visit: Shortness of breath Attending Provider: Dmitry Mehta Primary Care Provider: Evette Flaherty Consulting Providers: Francisca Montanez; Friend,Samuel; Humphrey [place] Discharge Orders/Prescriptions Prescriptions: New sennosides-docusate sodium [Stimulant Laxative Plus] 8.6-50 mg Tablet 2 tab PO BID PRN PRN (Reason: Constipation) Qty: 0 0RF melatonin 3 mg Tablet 3 mg PO QHS PRN PRN (Reason: Insomnia) Qty: 0 0RF alum-mag hydroxide-simeth [Mag-Al Plus Extra Strength] 400-400-40 mg/5 mL Suspension 30 ml PO Q6H PRN PRN (Reason: Gastric Burning) Qty: 0 0RF guaifenesin [Mucus Relief ER] 1,200 mg Tablet Extended Release 12hr 1,200 mg PO BID Qty: 0 0RF potassium, sodium phosphates 280-160-250 mg Powder In Packet 1 packet PO BID Qty: 0 0RF Ensure Plus High Protein 0.08 gram-1.5 kcal/mL Liquid 120 ml PO 4X/DAY Qty: 0 0RF albuterol sulfate 90 mcg/actuation HFA aerosol inhaler 1 inh inhalation Q6H PRN (Reason: shortness of breath or wheezing) Qty: 8.5 0RF Continued amantadine HCl 100 mg capsule 100 mg PO DAILY citalopram 20 mg tablet 40 mg PO DAILY polyethylene glycol 3350 [Miralax] 17 gram/dose powder 17 g PO DAILY PRN (Reason: Constipation) loratadine 10 mg tablet 10 mg PO DAILY PRN (Reason: allergies) carbidopa-levodopa 25-100 mg tablet 1.5 tab PO TID acetaminophen [Tylenol Extra Strength] 500 mg tablet 500 mg PO Q6H PRN (Reason: Pain) nitroglycerin [Nitrostat] 0.4 mg tablet, sublingual 0.4 mg sublingual Q5-15M PRN (Reason: chest pain) Qty: 25 3RF Rx Instructions: do not exceed 3 doses per episode mecobalamin (vitamin B12) 1,000 mcg tablet,disintegrating 1,000 mcg sublingual Q OTHER DAY atorvastatin 40 mg tablet 40 mg PO QHS Qty: 90 3RF aspirin 81 MG tablet,chewable 81 mg PO DAILY@0800 0RF cholecalciferol (vitamin D3) 100 mcg (4,000 unit) Capsule 100 mcg PO DAILY donepezil 5 mg tablet 5 mg PO DAILY Referrals / Follow Up: Evette Flaherty VEHICLE MODIFICATION TECHNICIAN-C [Primary Care Provider] - Disposition Disposition (needs filled in before D/C Order can be placed): Shelter Facility Charges/Coding Visit Charges Inpatient E&M: 54879 Disch Hosp >30min
--- NOTE | 2024-06-04 10:54 | PCM.TXEXTCAR ---
Diet Diet Order/Speech Therapy: 05/31/24 00:18 Diet: Cardiac - Heart Healthy Food consistency:: Regular Liquid Consistency:: Regular/Thin Routine Orders/Code Status Code Status: DNRCC DC O2, CPAP, BIPAP needs Home O2 Discharge instructions: No Wound(s) right buttocks: Wound Type: Pressure Injury Therapies Weight Bearing: Full weight bearing Physical Therapy: Eval and Treat Occupational Therapy: Eval and Treat Problem/Diagnosis (1) Adult failure to thrive: Status: Acute Code(s): R62.7 - Adult failure to thrive Plan Patient is an 83-year-old male who presented to [facility] ED on 05/30/2024 with worsening cough and shortness of breath. Hospital course as noted below. Patient discharged to SNF in stable condition on 06/04. 1. Acute hypoxia, resolved ? Suspected secondary to exacerbation of reactive airway disease. Infectious workup was negative. Treated with scheduled bronchodilators with improvement, did not require any supplemental oxygen on discharge. Albuterol inhaler as needed ordered on discharge. 2. Acute transaminitis ? Noted to have significant worsening of his LFTs following admission. CT abdomen pelvis showed showed cholelithiasis. Gallbladder ultrasound gallbladder wall thickening of unclear etiology. HIDA scan was normal. However, LFTs remained elevated. GI evaluated and recommended MRCP for further evaluation. 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 LFTs much improved by 06/03. No need for further inpatient management, recommend outpatient follow-up with GI on discharge as needed. 3. Acute on chronic debility in setting of advanced Parkinson's disease ? PT/OT/case management followed. Stable for discharge to SNF on 06/04. Continue home Sinemet, amantadine and donepezil. Chronic medical conditions: ? History of CAD with stenting, hyperlipidemia: Continue home aspirin and statin. ? Depression with anxiety: Continue home citalopram. ? History of hairy cell leukemia: Per history but no details available in chart. Total clinical time spent by myself addressing the patient's medical issues, reviewing all the data, and collaborating with patient's care team: 35 minutes. Allergies/Procedures Done in Hospital Allergies levofloxacin (From Levaquin) Allergy (Intermediate, Verified 05/30/24 19:36) Rash Penicillins Allergy (Intermediate, Verified 05/30/24 19:36) rash Quinolones Allergy (Verified 05/30/24 19:36) Rash Procedures: EKG and - (CT abdomen pelvis, liver ultrasound, HIDA scan, MRCP) Type of Care/Length of Stay Estimated LOS: Convalescent Care Less Than 30 days Type of Care Needed: Skilled Rehab Potential: Fair Prognosis: Fair Additional Orders/Day of Discharge H&P will serve as current which was dated: 05/30/24 Day of Discharge: 06/04/24 Dietary and Speech Recommendations Dietitian Recommendations/Changes: Continue cardiac diet as ordered Continue EPHP w/ medpass for increased nutrition if consumed Rec QUARRY PLUG AND FEATHER DRILLER consult if issues chewing/swallowing at meals Will interview pt at time of follow up re: diet/wt hx, po intake, etc and make additional rec as indicated. Discharge Plan Admission Admit Date/Time: 06/01/24 13:05 Primary Reason for Your Visit: Shortness of breath Attending Provider: Dmitry Mehta Primary Care Provider: Evette Flaherty Consulting Providers: Francisca Montanez; Samuel Aleman; Humphrey Montana Discharge Orders/Prescriptions Prescriptions: New sennosides-docusate sodium [Stimulant Laxative Plus] 8.6-50 mg Tablet 2 tab PO BID PRN PRN (Reason: Constipation) Qty: 0 0RF melatonin 3 mg Tablet 3 mg PO QHS PRN PRN (Reason: Insomnia) Qty: 0 0RF alum-mag hydroxide-simeth [Mag-Al Plus Extra Strength] 400-400-40 mg/5 mL Suspension 30 ml PO Q6H PRN PRN (Reason: Gastric Burning) Qty: 0 0RF guaifenesin [Mucus Relief ER] 1,200 mg Tablet Extended Release 12hr 1,200 mg PO BID Qty: 0 0RF potassium, sodium phosphates 280-160-250 mg Powder In Packet 1 packet PO BID Qty: 0 0RF Ensure Plus High Protein 0.08 gram-1.5 kcal/mL Liquid 120 ml PO 4X/DAY Qty: 0 0RF albuterol sulfate 90 mcg/actuation HFA aerosol inhaler 1 inh inhalation Q6H PRN (Reason: shortness of breath or wheezing) Qty: 8.5 0RF Continued amantadine HCl 100 mg capsule 100 mg PO DAILY citalopram 20 mg tablet 40 mg PO DAILY polyethylene glycol 3350 [Miralax] 17 gram/dose powder 17 g PO DAILY PRN (Reason: Constipation) loratadine 10 mg tablet 10 mg PO DAILY PRN (Reason: allergies) carbidopa-levodopa 25-100 mg tablet 1.5 tab PO TID acetaminophen [Tylenol Extra Strength] 500 mg tablet 500 mg PO Q6H PRN (Reason: Pain) nitroglycerin [Nitrostat] 0.4 mg tablet, sublingual 0.4 mg sublingual Q5-15M PRN (Reason: chest pain) Qty: 25 3RF Rx Instructions: do not exceed 3 doses per episode mecobalamin (vitamin B12) 1,000 mcg tablet,disintegrating 1,000 mcg sublingual Q OTHER DAY atorvastatin 40 mg tablet 40 mg PO QHS Qty: 90 3RF aspirin 81 MG tablet,chewable 81 mg PO DAILY@0800 0RF cholecalciferol (vitamin D3) 100 mcg (4,000 unit) Capsule 100 mcg PO DAILY donepezil 5 mg tablet 5 mg PO DAILY Referrals / Follow Up: Evette Flaherty, ENGINEERING TEAM SUPERVISOR-C [Primary Care Provider] - Disposition Disposition (needs filled in before D/C Order can be placed): Care Home Facility
--- NOTE | 2024-06-04 11:59 | CASEMGMT ---
Social Work- Physician feels that pt is ready for discharge today.? DCA notified of discharge. Final discharge arrangements and notification to patient/family as per discharge sales planning manager.? Plan: [facility]; intermediate level of care DANO Manzo
--- NOTE | 2024-06-04 12:25 | CASEMGMT ---
Discharge Planning Discharge orders, signed med list, and transport time sent to [facility]. Physicians will transport pt by cot at 2:30p. Nursing, SW, pt, his , and his son (Camilo) updated. Gisell Moreira DC Planning Asst.
[2024-06-04 13:56] VITALS: BP 119/58; PULSE 94; RESP 18; TEMP 36.5; O2SAT 96
== END 2024-06-04 16:03 | disposition skilled nursing facility (03) | DRG 445 ==
LOC: ED 23:34 → MS3 05-31 01:26
PROVIDERS: Internal Medicine; Admitting Provider Family Medicine; Emergency Provider Emergency Medicine; PCP Nurse Practitioner Family; Visit Provider Hospitalist
DX: K80.20 Calculus of gallbladder without cholecystitis without obstruction (principal); J45.901 Unspecified asthma with (acute) exacerbation; L89.319 Pressure ulcer of right buttock, unspecified stage; R62.7 Adult failure to thrive; K82.8 Other specified diseases of gallbladder; Z66 Do not resuscitate; Z51.5 Encounter for palliative care; G20.C Parkinsonism, unspecified; I10 Essential (primary) hypertension; E78.5 Hyperlipidemia, unspecified; F41.8 Other specified anxiety disorders; I25.10 Atherosclerotic heart disease of native coronary artery without angina pectoris; K80.50 Calculus of bile duct without cholangitis or cholecystitis without obstruction; M19.90 Unspecified osteoarthritis, unspecified site; D13.6 Benign neoplasm of pancreas; I49.3 Ventricular premature depolarization; R53.1 Weakness; Z79.2 Long term (current) use of antibiotics; R09.02 Hypoxemia; Z95.5 Presence of coronary angioplasty implant and graft; Z79.82 Long term (current) use of aspirin; R53.81 Other malaise; Z68.23 Body mass index [BMI] 23.0-23.9, adult; R29.6 Repeated falls; Z88.1 Allergy status to other antibiotic agents; Z88.8 Allergy status to other drugs, medicaments and biological substances; Z79.899 Other long term (current) drug therapy; Z79.02 Long term (current) use of antithrombotics/antiplatelets; R74.01 Elevation of levels of liver transaminase levels
CPT/HCPCS: 36415; 71046; 74177; 74181; 76705; 78227; 80048; 80053; 80076; 83690; 83735; 83880; 84100; 84145; 84484; 85025; 87631; 87633; 87811; 93005; 94668; 97110; 97162; 97167; 97530; 97535; 99285; A9537; Q9967; A4216; J2805

== ENCOUNTER → 2024-07-10 | Outpatient (CLI) | payer MEDICARE, SELFPAY ==
[2024-07-10 17:54] LABS: Absolute Lymphocyte Count 0.66 X10^3/uL (0.83-4.51); Absolute Neutrophil Count 4.9 X10^3/uL (2.0-7.7); Basophil# 0.03 X10^3/uL; Basophil% 0.5 % (0-1); Eosinophil# 0.09 X10^3/uL; Eosinophils% 1.5 % (0-5); Hematocrit 37.6 % (40-54); Hemoglobin 12.7 g/dL (13.0-16.5); Lymphocyte # 0.66 X10^3/ul (0.83-4.51); Lymphocyte % 10.9 % (19-41); Mean Corp Hgb Conc 33.8 g/dL (32-36); Mean Corpuscular Hgb 32.8 pg (27.0-32.0); Mean Corpuscular Volume 97.2 fL (80-94); Mean Platelet Vol. 12.1 fl (6.2-12.0); Monocyte# 0.37 X10^3/uL; Monocyte% 6.1 % (0-10); NRBC Flagged by Analyzer 0 % (0-5); Neutrophil # 4.87 X10^3/uL (2.7-7.7); Neutrophil % 80.8 % (47-70); Platelet Count 143 K/mm3 (150-450); RBC Distribution Width CV 13.8 % (11.6-14.6); RBC Distribution Width SD 49.6 fl (35.1-43.9); Red Blood Count 3.87 M/mm3 (4.6-6.2)
[2024-07-10 18:44] LABS: ALB/GLOB Ratio 1.7 RATIO (0.9-2.4); AST(SGOT) 21 U/L (<=37); Alanine Aminotransfer ALT/SGPT 14 U/L (<=46); Albumin, Serum 4.4 g/dL (3.4-4.8); Alkaline Phosphatase 107 U/L (40-129); Anion Gap 11 (5-15); BUN 15 mg/dL (4-19); BUN/Creat Ratio 24.6 RATIO (10-20); Calcium,Total 9.8 mg/dL (7.6-11.0); Chloride 98 mmol/L (98-108); Creatinine, Serum 0.61 mg/dL (0.70-1.20); EST Glomerular Filtration Rate 95 (>60); Globulin 2.5 g/dL (2.2-4.2); Glucose 141 mg/dL (70-99); Potassium 4.1 mmol/L (3.3-5.1); Protein, Total 6.9 g/dL (5.9-8.4); Sodium Level 137 mmol/L (133-145); Total Bilirubin 0.58 mg/dL (0.00-1.30)
== END | disposition home or self-care (01) ==
LOC: BFHLAB 14:44
PROVIDERS: PCP Nurse Practitioner Family; Visit Provider Nurse Practitioner Family
DX: I10 Essential (primary) hypertension (principal)
CPT/HCPCS: 36415; 80053; 85025

== ENCOUNTER 2024-10-22 12:02 | Emergency (ER) | payer MEDICARE, SELFPAY ==
[2024-10-22 12:03] VITALS: BP 131/65; PULSE 81; RESP 14; TEMP 37.2; O2SAT 99
[2024-10-22 12:18] VITALS: BP 168/69; PULSE 76; RESP 18; TEMP 36.4; O2SAT 100
[2024-10-22 12:19] VITALS: BMI 21.4
--- NOTE | 2024-10-22 12:19 | CT_ITS ---
PROCEDURE: ABDOMEN/PELVIS WITHOUT CONT 10/22/2024 REASON FOR EXAM: GROSS HEMATURIA, URINARY RETENTION TECHNIQUE: ABDOMEN/PELVIS WITHOUT CONT Noncontrast technique limits evaluation of the abdominal and pelvic viscera. Coronal and Sagittal reconstruction series were provided. One or more dose reduction techniques were used (e.g., Automated exposure control, adjustment of the mA and/or kV according to patient size, use of iterative reconstruction technique). RADIATION DOSE SUMMARY: CTDlvol: 8.1 mGy DLP: 400.21 mGycm COMPARISON: Prior study dated May 30, 2024. FINDINGS: Lung bases: Mild increased markings at the lung bases suggestive of scarring. Coronary artery calcification. Liver: Normal size. No obvious mass. Gallbladder: Small layering gallstones. Spleen: Normal size. Pancreas: Diffuse fatty atrophy. Adrenals: Unremarkable. Kidneys: There is a 6.9 mm nonobstructive calculus in the upper pole calyx of the right kidney. Bladder: A Starkey catheter is seen within the urinary bladder. There is diffuse bladder wall thickening. Bowel: Colonic diverticulosis without diverticulitis. Appendix: The appendix is not identified. There is no inflammatory process identified in the right lower quadrant to suggest appendicitis. Lymph nodes: Unremarkable. Vasculature: Mild diffuse atherosclerotic calcifications are noted. Peritoneum / Retroperitoneum: Unremarkable Bones: Degenerative changes of the spine. CT/Abdomen/Pelvis without Cont IMPRESSION: Nonobstructive right intrarenal calculus. Diffuse bladder wall thickening. A Starkey catheter is seen within the urinary b ladder. Small layering gallstones. Reading Location: [facility]
--- NOTE | 2024-10-22 12:20 | EX.ED.GUMALE ---
HPI History of Present Illness Chief Complaint: Complaint Narrative Narrative: 84-year-old male past medical history of Parkinson's, not on blood thinners presents with his because of gross hematuria that he has had intermittently since June, approximately 3 months ago. States this was being monitored by his home health aides, but they are no longer coming. She states that he has intermittently had gross blood at the tip of his penis for the last few months. Yesterday, everything was fine but today he did have more bleeding than usual coming from his penis, and is now experiencing urinary retention. He last urinated Starkey at 4 AM, approximately 8 hours ago. However, prior to arrival he had a small amount of urine that was dark red. He does take aspirin. He denies any abdominal pain, no fevers or chills, no nausea or vomiting, no problems with bowel movements. He denies other bleeding diathesis. No black stool or melena. [facility] Medical History History of CAD (coronary artery disease) History of Parkinson's disease Multiple falls Atherosclerosis of coronary artery of [place] heart without angina pectoris Idiopathic Parkinson's disease Dyspnea on exertion Osteoarthritis Essential hypertension Reactive airways dysfunction syndrome Vitamin B-complex deficiency Hairy cell leukemia, in remission Home Medications ?Medication ?Instructions ?Recorded ?Last Taken ?Type aspirin 81 mg chewable tablet 81 mg PO DAILY@0800 11/16/19 10/21/24 Rx amantadine HCl 100 mg capsule 100 mg PO DAILY parkinsons 08/03/20 10/22/24 History loratadine 10 mg tablet 10 mg PO DAILY PRN allergies 08/03/20 Unknown History cholecalciferol (vitamin D3) 100 100 mcg PO DAILY vitamin 11/16/20 10/22/24 History mcg (4,000 unit) capsule acetaminophen 500 mg tablet 500 mg PO Q6H PRN Pain 12/07/20 Unknown History (Tylenol Extra Strength) carbidopa 25 mg-levodopa 100 mg 2 tab PO TID parkinsons 12/07/20 10/22/24 History tablet nitroglycerin 0.4 mg sublingual 0.4 mg sublingual Q5-15M PRN chest 06/29/23 Unknown Rx tablet (Nitrostat) pain #25 tabs atorvastatin 40 mg tablet 40 mg PO QHS #90 tabs 10/03/23 10/21/24 Rx mecobalamin (vitamin B12) 1,000 1,000 mcg sublingual Q OTHER DAY 10/03/23 10/21/24 History mcg disintegrating tablet,sublingual donepezil 5 mg tablet 5 mg PO DAILY 05/30/24 10/22/24 History guaifenesin 1,200 mg tablet, 1,200 mg PO BID #0 tabs 06/03/24 10/22/24 Rx extended release 12 hr (Mucus Relief ER) citalopram 40 mg tablet 40 mg PO DAILY 10/22/24 10/22/24 History sennosides 8.6 mg tablet 8.6 mg PO DAILY PRN constipation 10/22/24 Unknown History (Black-Draught Lax-Senna) Allergy/AdvReac Type Severity Reaction Status Date / Time levofloxacin (From Levaquin) Allergy Intermediate Rash Verified 10/22/24 12:03 Penicillins Allergy Intermediate rash Verified 10/22/24 12:03 Quinolones Allergy Rash Verified 10/22/24 12:03 Family History Mother Cancer Urinary Brother Cancer throat Sister Diabetes Heart disease Open heart surgery, unsure if due to CAD or valve Sister Diabetes Sister Diabetes Surgical History Presence of coronary angioplasty implant and graft (~11/21/19) History of coronary artery stent placement (11/21/19) History of arthroscopic knee surgery History of tonsillectomy Social History Smoking Status: Never smoker alcohol intake: never substance use type: does not use caffeine: Yes Type: carbonated beverages ROS ROS ED ROS Narrative Review of symptoms positive for gross hematuria and urinary retention. No fevers or chills, no nausea or vomiting. No problems with bowel movements. No exacerbating or alleviating factors. Does not take blood thinners except for baby aspirin. EXAM Physical Exam Narrative Exam Narrative: Afebrile. Vital signs noted. Nontoxic-appearing. Cardiovascular examination reveals a regular rate and rhythm. Lungs are clear to auscultation bilaterally. Abdomen is soft and nontender with the exception of minimal suprapubic discomfort, but no guarding or rebound. Positive bowel sounds. Chaperoned examination does show a clot at the meatus of the penis but no testicular tenderness. No active bleeding or hemorrhage. Const Vital Signs: 10/22/24 12:03 10/22/24 12:18 10/22/24 13:00 Temperature 99 F 97.5 F L 97.6 F L Temperature Source Temporal Oral Oral Pulse Rate 81 76 85 Respiratory Rate 14 18 18 Blood Pressure 131/65 H 168/69 H 166/84 H Blood Pressure Mean 87 102 111 Pulse Ox 99 100 100 Oxygen Delivery Method Room Air Room Air Room Air MDM MDM MDM Narrative Medical decision making narrative: The differential diagnosis includes but not limited to hemorrhagic cystitis versus ureterolithiasis versus bladder mass with bleeding. Comprehensive workup was pursued. I do feel CT imaging without contrast is indicated to look for mass. I will obtain a CBC and a BMP as well. Starkey catheter will be inserted by RN, three-way for irrigation with at least 1 L manually. I reviewed his laboratory work and he has a normal white count of 5.0 with hemoglobin normal at 13.9, hematocrit also normal at 42.4, platelet count 164. BMP is remarkable for normal BUN and creatinine low at 0.66, glucose 99. Urinalysis was obtained and sent and while there were 10-25 RBCs, there are 0 WBCs and 0 bacteria. I do not feel that antibiotics are indicated. I reviewed the radiology report of the CT of the abdomen and pelvis. While he does have gallstones, there is a Starkey catheter in the bladder and diffuse bladder wall thickening but no evidence of mass. After irrigation with half a liter, patient has return of clear to yellow fluid, no evidence of clots. I discussed with him leaving the Starkey catheter in place for urology follow-up, but patient and do not think that he would do well with Starkey catheter. They were told of the risk of urinary retention, and Starkey catheter was removed. He was referred to urology for follow-up and strict return instructions also reviewed. I do not feel that he requires observation or transfer at this time. Return instructions to the emergency department were reviewed. Disposition is discharged home in stable condition. History & Record Review Discussion w/independent historian: Patient and Family () Additional record(s) reviewed:: Prior ED visit (Noncontributory to current chief complaint.) Lab Data Attestation: I reviewed the patient's lab results. Labs: Laboratory Results - last 24 hr 10/22/24 12:49 WBC 5.0 RBC 4.36 L Hgb 13.9 Hct 42.4 MCV 97.2 H MCH 31.9 MCHC 32.8 RDW Std Deviation 46.8 H RDW Coeff of Syeda 12.9 Plt Count 164 MPV 11.8 Immature Gran % (Auto) 0.200 Neut % (Auto) 73.2 H Lymph % (Auto) 14.8 L Sanders % (Auto) 7.2 Eos % (Auto) 4.2 Baso % (Auto) 0.4 Absolute Neuts (auto) 3.7 Absolute Lymphs (auto) 0.74 L Nucleated RBC % 0 Sodium 139 Potassium 4.0 Chloride 98 Carbon Dioxide 28.3 Anion Gap 13 BUN 12 Creatinine 0.66 L Estim Creat Clear Calc 58.63 Est GFR (MDRD) Non-Af 92 BUN/Creatinine Ratio 18.8 Glucose 99 Calcium 9.9 Urine Color Yellow Urine Clarity Sl. Cloudy Urine pH 7.0 Ur Specific Brownell 1.010 Urine Protein 15 H Urine Glucose (UA) Normal Urine Ketones 5 H Urine Occult Blood 250 H Urine Nitrite Negative Urine Bilirubin Negative Urine Urobilinogen Normal Ur Leukocyte Esterase Negative Urine RBC 10-25 SEEN Urine WBC 0 SEEN Ur Squamous Epith Cells 0 SEEN Urine Bacteria 0 SEEN Urine Mucus 0 SEEN Radiography Diagnostic Testing: Clinical Impression(s) from Imaging Studies Abdomen/Pelvis CT 10/22/24 12:19 IMPRESSION: Nonobstructive right intrarenal calculus. Diffuse bladder wall thickening. A Starkey catheter is seen within the urinary bladder. Small layering gallstones. Reading Location: [id number] Discharge Plan Triage Chief Complaint: Complaint ED Provider: Ronak Galeano Dx/Rx/DC Orders Clinical Impression: Penile bleeding, Hematuria, Bladder wall thickening Instructions: Hematuria: Possible Causes, ED Hematuria Prescriptions: No Action amantadine HCl 100 mg capsule 100 mg PO DAILY loratadine 10 mg tablet 10 mg PO DAILY PRN (Reason: allergies) carbidopa-levodopa 25-100 mg tablet 2 tab PO TID acetaminophen [Tylenol Extra Strength] 500 mg tablet 500 mg PO Q6H PRN (Reason: Pain) nitroglycerin [Nitrostat] 0.4 mg tablet, sublingual 0.4 mg sublingual Q5-15M PRN (Reason: chest pain) Qty: 25 3RF Rx Instructions: do not exceed 3 doses per episode mecobalamin (vitamin B12) 1,000 mcg tablet,disintegrating 1,000 mcg sublingual Q OTHER DAY atorvastatin 40 mg tablet 40 mg PO QHS Qty: 90 3RF aspirin 81 MG tablet,chewable 81 mg PO DAILY@0800 0RF cholecalciferol (vitamin D3) 100 mcg (4,000 unit) Capsule 100 mcg PO DAILY donepezil 5 mg tablet 5 mg PO DAILY guaifenesin [Mucus Relief ER] 1,200 mg Tablet Extended Release 12hr 1,200 mg PO BID Qty: 0 0RF citalopram 40 mg tablet 40 mg PO DAILY sennosides [Black-Draught Lax-Senna] 8.6 mg tablet 8.6 mg PO DAILY PRN (Reason: constipation) Primary Care Provider: Evette Flaherty Referrals: Drake Romero MD [Med Staff - Active Staff] - 1 Week if not improving Evette Flaherty, PROFILE SAW SETUP OPERATOR-C [Primary Care Provider] - Activity Restrictions/Additional Instructions: Return to the emergency department with increased penile bleeding, continued gross hematuria, new or worsening symptoms. Follow-up with urology as soon as possible. Print Language: Cypriot Disposition Disposition: Home, Self Care
[2024-10-22 12:57] LABS: Mucous, Urine 0 SEEN /hpf (<or=2+); Squamous Epithelial Cells - UA 0 SEEN /hpf (0-5)
[2024-10-22 13:00] VITALS: BP 166/84; PULSE 85; RESP 18; TEMP 36.4; O2SAT 100
[2024-10-22 13:00] LABS: Color, Urine Yellow (Yellow); Glucose, Dipstick Normal (Normal); Ketone-Dipstick 5 mg/dl (Negative); Leukocyte Esterase-Dipstick Negative /ul (Negative); Nitrite-Dipstick Negative (Negative); Occult Blood-Urine 250 /ul (Negative); Protein-Dipstick 15 mg/dl (Negative); Specific Gravity, Urine 1.010 (1.002-1.030); Urine Bilirubin Dipstick Negative (Negative)
[2024-10-22 13:08] LABS: Red Blood Cells-Urine 10-25 SEEN /hpf (0-5)
[2024-10-22 13:09] LABS: Hematocrit 42.4 % (40-54); Hemoglobin 13.9 g/dL (13.0-16.5); Immature Granulocytes Count 0.010 X10^3/uL (0.0-0.0); Mean Corp Hgb Conc 32.8 g/dL (32-36); Mean Corpuscular Volume 97.2 fL (80-94); Mean Platelet Vol. 11.8 fl (6.2-12.0); NRBC Flagged by Analyzer 0 % (0-5); Platelet Count 164 K/mm3 (150-450); RBC Distribution Width CV 12.9 % (11.6-14.6); RBC Distribution Width SD 46.8 fl (35.1-43.9); Red Blood Count 4.36 M/mm3 (4.6-6.2); White Blood Count 5.0 K/mm3 (4.4-11.0)
[2024-10-22 13:33] LABS: Anion Gap 13 (5-15); BUN 12 mg/dL (4-19); BUN/Creat Ratio 18.8 RATIO (10-20); Calcium,Total 9.9 mg/dL (7.6-11.0); Carbon Dioxide 28.3 mmol/L (21.0-32.0); Chloride 98 mmol/L (98-108); Estimated Creatinine Clearance 58.63 ml/min (50-250); Glucose 99 mg/dL (70-99); Potassium 4.0 mmol/L (3.3-5.1)
[2024-10-22 14:00] VITALS: BP 183/69; PULSE 103; O2SAT 100
[2024-10-22 15:00] VITALS: BP 174/77; PULSE 93; RESP 20; TEMP 36.3; O2SAT 98
== END 2024-10-22 15:02 | disposition home or self-care (01) ==
PROVIDERS: Emergency Provider Emergency Medicine; PCP Nurse Practitioner Family; Visit Provider Emergency Medicine
DX: R31.9 Hematuria, unspecified (principal); G20.A1 Parkinson's disease without dyskinesia, without mention of fluctuations; N32.89 Other specified disorders of bladder; I25.10 Atherosclerotic heart disease of native coronary artery without angina pectoris; I10 Essential (primary) hypertension; N48.89 Other specified disorders of penis; Z79.899 Other long term (current) drug therapy; Z95.5 Presence of coronary angioplasty implant and graft; Z79.82 Long term (current) use of aspirin
CPT/HCPCS: 51702; 74176; 80048; 81001; 85025; 87077; 87086; 87088; 87186; 99283; A4216